=== PATIENT | female | born 1930 | race Caucasian/White ===

== ENCOUNTER 2017-08-18 12:16 | Observation (INO) ==
[2017-08-18 13:12] LABS: Basophils % 0.3 %; Eosinophils # 0.2 K/mcL (0.0-0.6); Eosinophils % 1.6 %; Hematocrit 41.8 % (35.3-44.9); Hemoglobin 13.7 g/dL (11.5-15.4); Immature Granulocytes % 0.6 % (0-4); Lymphocytes # 1.8 K/mcL (0.6-4.6); Lymphocytes % 18.7 %; Mean Corpuscular HGB Conc 32.8 g/dL (31.6-35.5); Mean Corpuscular Hemoglobin 29.1 pg (28.0-33.3); Mean Corpuscular Volume 88.7 fL (83.0-100.0); Monocytes # 0.8 K/mcL (0.0-1.3); Monocytes % 7.9 %; Neutrophils # 6.7 K/mcL (1.6-8.9); Platelet Count 194 K/mcL (140-400); Red Blood Count 4.71 M/mcL (3.82-4.97); Red Cell Distribution Width 13.6 % (11.5-14.5); Segmented Neutrophils % 70.9 %
[2017-08-18 13:15] LABS: INR 2.6; Prothrombin Time 28.2 Seconds (9.4-12.1)
[2017-08-18 13:18] LABS: Activated Partial Thrombo Time 41.3 Seconds (26.0-36.0)
--- NOTE | 2017-08-18 13:23 | Emergency Department Note ---
Disposition Clinical Impression: NSTEMI (non-ST elevated myocardial infarction) Disposition: Admitted As Inpatient Condition: Undetermined Referrals: Elba Tierney CNP [Primary Care Provider] - Forms: ED Satisfaction Letter Time of Disposition: 13:56 Chest Pain HPI - General Chief Complaint: ED Chest Pain Stated Complaint: Weakness, DORINA Time Seen by Provider: 08/18/17 12:50 Source: patient Mode of arrival: ambulatory Limitations: no limitations Vital Signs Reviewed: Yes Nursing Notes Reviewed: Yes - History of Present Illness HPI Narrative: 87-year-old female with history of NE, arrives [facility] emergency department complaining of epigastric pain radiating into her chest. The patient states this feels similar to her previous NE. The patient has associated dyspnea as well. She denies any other complaints at this time other than feeling generalized weakness. The patient appears uncomfortable in the room and states that she just feels ill. The patient denies any active chest pain at this time. The patient does have a history of blood clot. Patient is currently taking warfarin for this. The patient denies any other complaints at this time other than some right lower extremity pain without unilateral swelling. The patient does have bilateral lower extremity swelling but no acute changes associated with it. Pt complaint: chest pain Onset (ago): day(s) (1) Duration: intermittent, now resolved Pain Location: substernal, epigastric Severity scale (1-10): 0 Quality: sharp Pain Radiation: none Improves with: nothing Worsens with: nothing Associated symptoms: Reports: dyspnea Treatments prior to arrival chest pain: none - Related Data On Oral Contraceptives: No Home Medications Medication Instructions Recorded Confirmed Carvedilol [Coreg] 6.25 mg PO BIDWM 12/17/15 12/17/15 Losartan Potassium [Cozaar] 50 mg PO DAILY 12/17/15 12/17/15 Oxybutynin [Ditropan] 5 mg PO DAILY 12/17/15 12/17/15 Polyethylene Glycol 3350 [MiraLAX] 8.5 gm PO DAILY 12/17/15 12/17/15 Simvastatin [Zocor] 40 mg PO HS 12/17/15 12/17/15 Warfarin Sodium [Coumadin] 6 mg PO 2XW 12/17/15 12/17/15 Warfarin [Coumadin] 4 mg PO 4XW 12/17/15 12/17/15 hydroCHLOROthiazide 25 mg PO DAILY 12/17/15 12/17/15 [Hydrochlorothiazide] traMADol [Ultram] 50 mg PO QID PRN 12/17/15 12/17/15 Previous Rx's Medication Instructions Recorded Nitrofurantoin (BID) [Macrobid] 100 mg PO BID 7 Days capsule 03/26/16 Phenazopyridine HCl [Pyridium] 200 mg PO TIDAC 2 Days tab 03/26/16 LORazepam [Ativan] 1 mg PO BID PRN #6 tablet 04/12/16 Allergies Allergy/AdvReac Type Severity Reaction Status Date / Time prednisone AdvReac Flushing Verified 08/18/17 12:39 All systems ED: reviewed and negative except as stated. Constitutional: Reports: weakness. Denies: fever, chills ENT ED: Denies: congestion Cardiovascular: Reports: chest pain, edema. Denies: dyspnea on exertion Respiratory: Reports: dyspnea. Denies: cough, wheezes, hemoptysis Gastrointestinal: Reports: nausea. Denies: abdominal pain, vomiting, diarrhea Musculoskeletal: Denies: back pain, neck pain, arthralgia, myalgia Integumentary: Denies: rash Neurological: Reports: weakness Chest Pain PMH - Past Medical History Medical history: Reports: coronary artery disease, hypertension Surgical history: Reports: angioplasty/stent, hip replacement, hysterectomy, orthopedic, other, pacemaker/AICD Psychiatric history: Reports: no psych history [employer] history: Reports: no [employer] history - Social History Smoking Status: Never smoker Alcohol use: Reports: none Drug use: Reports: none Physical Exam - General Limitations: no limitations General appearance: alert, in no apparent distress - Head Head exam: atraumatic, normocephalic, normal inspection - Eye Eye exam: Present: normal appearance, PERRL, EOMI - ENT ENT exam: normal exam, normal oropharynx, mucous membranes moist - Neck Neck exam: Present: normal inspection, full ROM, trachea midline - Chest Chest inspection: Present: normal inspection, symmetric chest wall rise - Respiratory Respiratory exam: Present: normal lung sounds bilaterally - Cardiovascular Cardiovascular exam: Present: regular rate, normal rhythm, normal heart sounds - Abdominal Exam Abdominal exam: Present: soft, Non-Tender. Absent: tenderness, distention, guarding, rebound, rigidity - Extremities Exam Extremities exam: Present: full ROM, tenderness (RLE), pedal edema (1+) - Neurological Exam Neurological exam: Present: alert, oriented X3 Course Vital Signs Temperature 97.4 F L 08/18/17 12:36 Pulse Rate 65 08/18/17 12:36 Respiratory Rate 16 08/18/17 12:36 Blood Pressure 128/76 08/18/17 12:36 O2 Sat by Pulse Oximetry 98 08/18/17 12:36 Temperature 97.4 F L 08/18/17 12:36 Pulse Rate 62 08/18/17 13:24 Respiratory Rate 20 08/18/17 13:24 Blood Pressure 129/79 08/18/17 13:24 O2 Sat by Pulse Oximetry 96 08/18/17 13:24 Oxygen Delivery Oxygen Delivery Room Air Chest Pain - MDM Narrative Medical decision making narrative: Patient's workup here in the emergency department consistent with an elevated troponin associated with possible STEMI. Given the patient's symptoms and similarity of this epigastric pain radiating across to her previous NE, we will admit the patient to the hospitalist service. [facility] emergency department. She is chest pain-free at this time. Patient accepted by Dr. Rae. - Lab Data Lab results reviewed: Yes I reviewed the patient's lab results. Result diagrams: 08/18/17 13:04 08/18/17 13:04 Lab Results 08/18/17 08/18/17 08/18/17 Range/Units 13:04 13:04 13:04 WBC 9.5 (4.3-11.1) K/mcL RBC 4.71 (3.82-4.97) M/mcL Hgb 13.7 (11.5-15.4) g/dL Hct 41.8 (35.3-44.9) % MCV 88.7 (83.0-100.0) fL MCH 29.1 (28.0-33.3) pg MCHC 32.8 (31.6-35.5) g/dL RDW 13.6 (11.5-14.5) % Plt Count 194 (140-400) K/mcL MPV 10.0 (9.4-12.4) fL Immature Gran % 0.6 (0-4) % Seg Neutrophils % 70.9 % Lymphocytes % 18.7 % Monocytes % 7.9 % Eosinophils % 1.6 % Basophils % 0.3 % Neutrophils # 6.7 (1.6-8.9) K/mcL Lymphocytes # 1.8 (0.6-4.6) K/mcL Monocytes # 0.8 (0.0-1.3) K/mcL Eosinophils # 0.2 (0.0-0.6) K/mcL Basophils # 0.0 (0.0-0.2) K/mcL PT 28.2 H (9.4-12.1) Seconds INR 2.6 APTT 41.3 H (26.0-36.0) Seconds D-Dimer (0-500) ng/mLFEU Sodium 135 L (136-145) mEq/L Potassium 4.1 (3.5-4.5) mEq/L Chloride 99 (98-109) mEq/L Carbon Dioxide 23 (19-29) mEq/L BUN 17 (7-20) mg/dL Creatinine 1.11 (0.57-1.11) mg/dL Est GFR ( Amer) 56 L (> 60) Est GFR (Non-Af Amer) 46 L (> 60) BUN/Creatinine Ratio 15 (6-26) Glucose 134 H (70-99) mg/dL Calculated Osmolality 284 (280-300) Calcium 9.9 (8.6-10.8) mg/dL Troponin I (0-0.03) ng/mL Urine Color (Yellow) Urine Clarity (Clear) Urine pH (5.0-8.0) pH Units Ur Specific [place] (1.010-1.025) Urine Protein (Neg-Trace) mg/dL Urine Glucose (UA) (Normal) mg/dL Urine Ketones (Negative) mg/dL Urine Blood (Negative) Urine Nitrite (Negative) Urine Bilirubin (Negative) Urine Urobilinogen (Normal) mg/dL Ur Leukocyte Esterase (Negative) Urine Microscopic RBC (0-3) per hpf Urine Microscopic WBC (0-3) per hpf Ur Squamous Epith Cells (None-Few) per lpf Urine Bacteria (None-Few) per hpf Hyaline Casts (None-Few) per lpf Ur Culture Indicated? (NO) 08/18/17 08/18/17 08/18/17 Range/Units 13:04 13:04 13:40 WBC (4.3-11.1) K/mcL RBC (3.82-4.97) M/mcL Hgb (11.5-15.4) g/dL Hct (35.3-44.9) % MCV (83.0-100.0) fL MCH (28.0-33.3) pg MCHC (31.6-35.5) g/dL RDW (11.5-14.5) % Plt Count (140-400) K/mcL MPV (9.4-12.4) fL Immature Gran % (0-4) % Seg Neutrophils % % Lymphocytes % % Monocytes % % Eosinophils % % Basophils % % Neutrophils # (1.6-8.9) K/mcL Lymphocytes # (0.6-4.6) K/mcL Monocytes # (0.0-1.3) K/mcL Eosinophils # (0.0-0.6) K/mcL Basophils # (0.0-0.2) K/mcL PT (9.4-12.1) Seconds INR APTT (26.0-36.0) Seconds D-Dimer 337 (0-500) ng/mLFEU Sodium (136-145) mEq/L Potassium (3.5-4.5) mEq/L Chloride (98-109) mEq/L Carbon Dioxide (19-29) mEq/L BUN (7-20) mg/dL Creatinine (0.57-1.11) mg/dL Est GFR ( Amer) (> 60) Est GFR (Non-Af Amer) (> 60) BUN/Creatinine Ratio (6-26) Glucose (70-99) mg/dL Calculated Osmolality (280-300) Calcium (8.6-10.8) mg/dL Troponin I 0.05 H* (0-0.03) ng/mL Urine Color Yellow (Yellow) Urine Clarity Clear (Clear) Urine pH 7.0 (5.0-8.0) pH Units Ur Specific [place] 1.012 (1.010-1.025) Urine Protein Negative (Neg-Trace) mg/dL Urine Glucose (UA) Normal (Normal) mg/dL Urine Ketones Negative (Negative) mg/dL Urine Blood Negative (Negative) Urine Nitrite Negative (Negative) Urine Bilirubin Negative (Negative) Urine Urobilinogen Normal (Normal) mg/dL Ur Leukocyte Esterase Trace H (Negative) Urine Microscopic RBC 0-3 (0-3) per hpf Urine Microscopic WBC 0-3 (0-3) per hpf Ur Squamous Epith Cells Many H (None-Few) per lpf Urine Bacteria None Seen (None-Few) per hpf Hyaline Casts None Seen (None-Few) per lpf Ur Culture Indicated? YES A (NO) - Radiology Data Radiology results reviewed: Yes I reviewed the patient's radiology results. - EKG Data EKG attestation: Yes I reviewed and interpreted this EKG. EKG results narrative: Heart rate 66 bpm. QTc 478 ms. Electronic ventricular pacemaker. No elevation or depression noted. No [facility] criteria met. No acute changes noted.
[2017-08-18 13:24] LABS: Calcium 9.9 mg/dL (8.6-10.8); Potassium 4.1 mEq/L (3.5-4.5)
[2017-08-18] MEDS ORDERED: Aspirin 325 MG TABLET PO ONE (13:40)
[2017-08-18 13:52] LABS: Bilirubin,Urine Negative (Negative); Blood,Urine Negative (Negative); Clarity,Urine Clear (Clear); Color,Urine Yellow (Yellow); Glucose,Urine (UA) Normal (Normal); Ketones,Urine Negative (Negative); Leukocyte Esterase,Urine Trace (Negative); Nitrite,Urine Negative (Negative); Protein,Urine Negative (Neg-Trace); Specific Gravity,Urine 1.012 (1.010-1.025); Urobilinogen,Urine Normal (Normal)
[2017-08-18 13:55] LABS: Bacteria,Urine None Seen per hpf (None-Few); Hyaline Casts,Urine None Seen per lpf (None-Few); RBC,Urine 0-3 per hpf (0-3); Squamous Epithelial Cell,Urine Many per lpf (None-Few); WBC,Urine 0-3 per hpf (0-3)
--- NOTE | 2017-08-18 15:49 | Emergency Department Note ---
START Narrative - START START: I examined this patient and my medical decision-making was reviewed with the Resident Physician. I agree with the documented findings, disposition and treatment plan as described except to the extent set forth below. CP in pt with underlying CAD S/P MT. Pain free at the time of my evaluation. Vitals normal, troponin minimally elevated, hospitalist agreed with holding off on anticoagulation, aspirin given.
--- NOTE | 2017-08-18 18:25 | Internal Med History&Physical ---
Date of Encounter: 08/18/17 Time of Encounter: 17:00 Assessment and Plan (1) NSTEMI (non-ST elevated myocardial infarction) Current visit: Yes Status: Acute -Patient with chest pain found to have elevated cardiac biomarkers in the ER. -Monitor on telemetry and trend cardiac biomarkers. -Cardiology consult and appreciate recommendations. (2) CAD (coronary artery disease) Current visit: Yes Status: Acute -ACS rule out as above; continue home medications. Qualifiers: Coronary Disease-Associated Artery/Lesion type: [place] artery Qualified Code(s): I25.10 - Atherosclerotic heart disease of [place] coronary artery without angina pectoris (3) HLD (hyperlipidemia) Current visit: Yes Status: Acute -Continue statin. Qualifiers: Hyperlipidemia type: unspecified Qualified Code(s): E78.5 - Hyperlipidemia , unspecified Internal Medicine - H&P: HPI Chief complaint: chest pain Admitted From: Home History of present illness: Patient is an 87-year-old female with past medical history significant for coronary Job disease, atrial fibrillation and hyperlipidemia who presents to the ER on 08/18/17 with chest pain. Patient reports a 1 day history of substernal chest pain that she describes as sharp/pressure lasting for minutes which was provoked by exertion (sweeping the floor) and relieved with nitroglycerin. Patient denies any radiation or associated symptoms. Patient does report that this felt like her last heart attack. In the ER patient was found to have elevated cardiac biomarkers. She will be admitted to medical surgical floor for ACS rule out. Past Med Surg Social Fam HX - Past Medical History Medical history: coronary artery disease, hypertension Psychiatric history: no psych history - Past Surgical History Surgical History: angioplasty/stent, hip replacement, hysterectomy, orthopedic, other, pacemaker/AICD - Social History Smoking Status: Never smoker Smokeless Tobacco Status: No Alcohol use: none Drug use: none - Family History Father Living Status: Hx Family Cardiac Disorders: Yes Internal Medicine - H&P: Meds Simvastatin [Zocor] 40 mg PO HS 12/17/15 [History] Warfarin Sodium [Coumadin] 6 mg PO SA 12/17/15 [History] Warfarin [Coumadin] 4 mg PO SUMOTUWETHFR 12/17/15 [History] hydroCHLOROthiazide [Hydrochlorothiazide] 25 mg PO DAILY 12/17/15 [History] Aspirin Enteric Coated [Aspirin EC] 81 mg PO DAILY 08/18/17 [History] Carvedilol [Carvedilol] 12.5 mg PO BID 08/18/17 [History] Losartan [Cozaar] 25 mg PO DAILY 08/18/17 [History] Oxybutynin Chloride [Ditropan Xl] 5 mg PO DAILY 08/18/17 [History] 3 Allergy/AdvReac Type Severity Reaction Status Date / Time prednisone AdvReac Flushing Verified 08/18/17 12:39 All Systems PM: A 10-system review of systems was performed and is negative for pertinent findings except as documented above in the HPI. - Constitutional Vitals: Temp Pulse Resp BP Pulse Ox 97.4 F L 63 16 134/81 97 08/18/17 12:36 08/18/17 15:02 08/18/17 15:02 08/18/17 15:02 08/18/17 15:02 General appearance: Present: A&O X 3, no acute distress - ENT ENT exam: Present: mucous membranes moist - Cardiovascular Cardiovascular exam: Present: RRR, +S1, +S2. Absent: diastolic murmur, gallop, rubs, systolic murmur - GI/Abdominal GI/Abdominal exam: Present: normal bowel sounds, soft, no peritoneal signs. Absent: distended, tenderness - Extremities Exam Extremities exam: Absent: pedal edema - Neurological Exam Neurological exam: Present: oriented X3 - Psychiatric Psychiatric exam: Present: normal mood - Skin Skin exam: Present: normal color Internal Med - H&P Results - Labs CBC & Chem 7: 08/18/17 13:04 08/18/17 13:04
[2017-08-18] MEDS ORDERED: Naloxone 0.4 MG/ML INJ IVP PRN (18:30)
[2017-08-18] MEDS: *HR* Warfarin 4 MG TABLET PO SCH (19:11)
[2017-08-19] MEDS: traMADol 50 MG TABLET PO PRN ×2 (00:07→09:27)
[2017-08-19 01:25] LABS: Basophils % 0.4 %; Eosinophils # 0.2 K/mcL (0.0-0.6); Eosinophils % 1.9 %; Hematocrit 40.3 % (35.3-44.9); Immature Granulocytes % 0.4 % (0-4); Lymphocytes # 2.3 K/mcL (0.6-4.6); Mean Corpuscular HGB Conc 32.3 g/dL (31.6-35.5); Mean Corpuscular Hemoglobin 28.8 pg (28.0-33.3); Mean Corpuscular Volume 89.4 fL (83.0-100.0); Mean Platelet Volume 10.5 fL (9.4-12.4); Monocytes # 0.8 K/mcL (0.0-1.3); Monocytes % 9.8 %; Platelet Count 181 K/mcL (140-400); Red Blood Count 4.51 M/mcL (3.82-4.97); Red Cell Distribution Width 13.7 % (11.5-14.5); Segmented Neutrophils % 60.5 %
[2017-08-19 01:37] LABS: Calcium 9.7 mg/dL (8.6-10.8)
[2017-08-19] MEDS: hydroCHLOROthiazide 25 MG TABLET PO SCH (09:19)
[2017-08-19] MEDS: Aspirin Enteric Coated 81 MG Tablet PO SCH (09:19)
--- NOTE | 2017-08-19 11:55 | Cardiology Consult Note ---
Date of Encounter: 08/19/17 Time of Encounter: 11:50 Assessment and Plan (1) Atrial fibrillation Current Visit: Yes Status: Chronic rate controlled on coumadin, continue above meds Qualifiers: Atrial fibrillation type: chronic Qualified Code(s): I48.2 - Chronic atrial fibrillation (2) NSTEMI (non-ST elevated myocardial infarction) Current Visit: Yes Status: Acute Exertional CP with mild elevation of troponins and slight worsening LE edema in last few weeks. Possible ischemic, discussed chemical stress test and pt agrees to proceed. Liely continue medical therapy unless high risk stress abnormalities Discussion w patient/family: The assessment and plan as outlined above was discussed with the patient and/or family members who expressed understanding and agreement. All questions were answered. Thank you for involving us in the care of your patient. Please call with any questions. History of Present Illness Consult date: 08/19/17 Consult reason: Chest pain Chief complaint: pain in my chest History of present illness: Ms. Virgen is a 87 year old female with h/o ICM s/p MD/PTCA with [facility] in 1995, PAF on coumadin presents with CP. Last EF at 30-35% s/p ICD placement. She presents with epigastric cp while sweeping at home, pain lasted few minutes and resolved with rest. No radiation or associated symptoms. mild troponin elevation and EKG unremarkable. Peak trop .09 and currently resting comfortably with no CP, SOB, ortopnea or PND. Past Med Surg Social Fam HX - Past Medical History Medical history: coronary artery disease, hypertension Psychiatric history: no psych history - Past Surgical History Surgical History: angioplasty/stent, hip replacement, hysterectomy, orthopedic, other, pacemaker/AICD - Social History Smoking Status: Never smoker Smokeless Tobacco Status: No Alcohol use: none Drug use: none - Family History Father Living Status: Hx Family Cardiac Disorders: Yes Medications and Allergies Simvastatin [Zocor] 40 mg PO HS 12/17/15 [History] Warfarin Sodium [Coumadin] 6 mg PO SA 12/17/15 [History] Warfarin [Coumadin] 4 mg PO SUMOTUWETHFR 12/17/15 [History] hydroCHLOROthiazide [Hydrochlorothiazide] 25 mg PO DAILY 12/17/15 [History] Aspirin Enteric Coated [Aspirin EC] 81 mg PO DAILY 08/18/17 [History] Carvedilol [Carvedilol] 12.5 mg PO BID 08/18/17 [History] Losartan [Cozaar] 25 mg PO DAILY 08/18/17 [History] Oxybutynin Chloride [Ditropan Xl] 5 mg PO DAILY 08/18/17 [History] 3 Allergy/AdvReac Type Severity Reaction Status Date / Time prednisone AdvReac Flushing Verified 08/18/17 12:39 All Systems Review: A 10-system review of systems was performed and is negative for pertinent findings except as documented above in the HPI. Physical Examination Vital Signs, Last 4 Hours Temp Pulse Resp BP Pulse Ox 08/19/17 11:06 97.6 F 60 15 99/62 95 General: Conversant, No Apparent Distress HEENT: Atraumatic, Normocephaly, Mucus Membranes Moist Neck: No JVD, Normal carotid pulses Cardiac: Reg Rate and Rhythm, Normal S1 and S2, No Murmur Lungs: Normal Breath Sounds, No Wheeze, Rales, Rhonchi Neuro: Alert and responsive, No focal deficits noted Abdomen: Soft, Non-Tender Skin: No rashes noted on visualized skin Musculoskeletal: No Chest Wall Tenderness Extremities: No Clubbing, No Cyanosis, No Edema (Bilateral LE edema), Normal Pulses Results 08/19/17 00:44 08/19/17 00:44 Lab Results 08/18/17 08/19/17 08/19/17 19:19 00:44 00:44 WBC 8.3 Hgb 13.0 Hct 40.3 Plt Count 181 Sodium Potassium Chloride Carbon Dioxide BUN Creatinine Glucose Calcium Troponin I 0.06 H* 0.08 H* 08/19/17 08/19/17 00:44 07:05 WBC Hgb Hct Plt Count Sodium 134 L Potassium 4.0 Chloride 100 Carbon Dioxide 23 BUN 17 Creatinine 1.13 H Glucose 113 H Calcium 9.7 Troponin I 0.07 H* Consult Discharge Plan - Plan Referrals: Elba Tierney CNP [Primary Care Provider] - 08/26/17 2:15 pm
--- NOTE | 2017-08-19 15:58 | Internal Med Progress Note ---
Date of Encounter: 08/19/17 Time of Encounter: 09:25 - Assessment and plan (1) NSTEMI (non-ST elevated myocardial infarction) Current Visit: Yes Status: Acute Assessment and plan: Patient reports exertional chest pain and increased peripheral edema over the last few weeks. She reported 1 day history of substernal chest pain that she described as sharp, lasting for several minutes at a time. Onset while she was cleaning her home and was relieved with nitroglycerin. She denies radiation of the pain, shortness of breath, nausea, diaphoresis. She states that the pain overall was a 6-7/10. She reports history of [place] 3 in the past and that this feels the same. Troponins mildly elevated, last one this morning was 0.07. Pt denies chest pain. EKG shows a paced rhythm rate of 66. Patient is been evaluated by cardiology and will have stress test tomorrow. She will be nothing by mouth after midnight. Stress test in the morning Continue telemetry Treat any chest pain with nitroglycerin and morphine Continue to monitor labs (2) HLD (hyperlipidemia) Current Visit: Yes Status: Chronic Assessment and plan: Chronic. Continue home medications. Qualifiers: Hyperlipidemia type: unspecified Qualified Code(s): E78.5 - Hyperlipidemia , unspecified (3) CAD (coronary artery disease) Current Visit: Yes Status: Acute Assessment and plan: Plan as above. Continue aspirin, beta davion, Zocor, Coumadin. Qualifiers: Coronary Disease-Associated Artery/Lesion type: [place] artery Qualified Code(s): I25.10 - Atherosclerotic heart disease of [place] coronary artery without angina pectoris (4) Atrial fibrillation Current Visit: Yes Status: Chronic Assessment and plan: Rate controlled. Pt is on Coumadin and BB. Continue home doses. Continue tele. Qualifiers: Atrial fibrillation type: chronic Qualified Code(s): I48.2 - Chronic atrial fibrillation (5) DVT prophylaxis Current Visit: Yes Status: Acute Assessment and plan: Pt on Coumadin for a-fib. Continue home dosing. - Time Spent With Patient less than 15 minutes - Subjective Interval history: Patient was seen and assessed at bedside at 9:25 AM. She is alert, oriented and pleasant. She currently denies chest pain during exam today. She denies shortness of breath or nausea, she denies fever or chills. Denies headache or blurred vision. She reports that she said 3 MIs in the past and this feels the same. - Constitutional Vitals: Temp Pulse Resp BP Pulse Ox 98.5 F 62 20 92/51 95 08/19/17 14:28 08/19/17 14:28 08/19/17 14:28 08/19/17 14:28 08/19/17 14:28 General appearance: Present: cooperative, A&O X 3, pleasant, no acute distress, answers questions appropriately - Head Head exam: Present: atraumatic, normal inspection, normocephalic - Eye Eye exam: Present: normal appearance, conjuntiva pink, sclera anicteric - Neck Neck exam general surgery: Present: normal inspection, supple, trachea midline. Absent: lymphadenopathy, tenderness - Respiratory Respiratory exam: Present: decreased breath sounds, CTAB. Absent: accessory muscle use, chest wall tenderness, rales, respiratory distress, rhonchi, wheezes - Cardiovascular Cardiovascular exam: Present: RRR, +S1, +S2. Absent: diastolic murmur, gallop, rubs, systolic murmur - GI/Abdominal GI/Abdominal exam: Present: normal bowel sounds, soft. Absent: distended, hepatomegaly, tenderness - Extremities Exam Extremities exam: Present: warm, radial pulses palpable and symmetrical. Absent : calf tenderness, cyanotic, pedal edema - Neurological Exam Neurological exam: Present: alert, oriented X3, no focal deficits. Absent: facial droop, speech deficit - Skin Skin exam: Present: dry, intact, normal color, warm. Absent: rash Internal Medicine: Result - Labs CBC & Chem 7: 08/19/17 00:44 08/19/17 00:44 Labs: Short CBC 08/19/17 Range/Units 00:44 WBC 8.3 (4.3-11.1) K/mcL Hgb 13.0 (11.5-15.4) g/dL Hct 40.3 (35.3-44.9) % Plt Count 181 (140-400) K/mcL Neutrophils # 5.0 (1.6-8.9) K/mcL BMP 08/19/17 00:44 Sodium 134 L Potassium 4.0 Chloride 100 Carbon Dioxide 23 BUN 17 Creatinine 1.13 H Glucose 113 H Calcium 9.7 Cardiac Enzymes 08/18/17 08/19/17 08/19/17 Range/Units 19:19 00:44 07:05 Troponin I 0.06 H* 0.08 H* 0.07 H* (0-0.03) ng/mL - ABG Interpretation ABG results: PT/INR, D-dimer PT 28.2 Seconds (9.4-12.1) H 08/18/17 13:04 D-Dimer 337 ng/mLFEU (0-500) 08/18/17 13:04 Consult Discharge Plan - Plan Referrals: Elba Tierney CNP [Primary Care Provider] - 08/26/17 2:15 pm
[2017-08-19] MEDS: *HR* Warfarin 4 MG TABLET PO SCH (17:07)
[2017-08-20 05:16] LABS: Basophils % 0.5 %; Eosinophils # 0.2 K/mcL (0.0-0.6); Eosinophils % 2.4 %; Hematocrit 39.6 % (35.3-44.9); Hemoglobin 12.7 g/dL (11.5-15.4); Immature Granulocytes % 0.5 % (0-4); Mean Corpuscular HGB Conc 32.1 g/dL (31.6-35.5); Mean Corpuscular Hemoglobin 28.9 pg (28.0-33.3); Mean Platelet Volume 10.2 fL (9.4-12.4); Monocytes # 0.8 K/mcL (0.0-1.3); Monocytes % 10.4 %; Neutrophils # 4.7 K/mcL (1.6-8.9); Platelet Count 158 K/mcL (140-400); Red Cell Distribution Width 13.9 % (11.5-14.5); Segmented Neutrophils % 60.2 %
[2017-08-20 05:22] LABS: BUN/Creatinine Ratio 17 (6-26); Blood Urea Nitrogen 18 mg/dL (7-20); Calcium 9.2 mg/dL (8.6-10.8); Carbon Dioxide 22 mEq/L (19-29); Chloride 100 mEq/L (98-109); Glucose 106 mg/dL (70-99); Osmolality,Calculated 278 (280-300); Potassium 4.2 mEq/L (3.5-4.5); Sodium 133 mEq/L (136-145); eGFR For African Americans > 60 (> 60); eGFR For Non-African Americans 50 (> 60)
[2017-08-20] MEDS ORDERED: Regadenoson 0.4 MG/5 ML SYRINGE IVP ONE (06:26)
--- NOTE | 2017-08-20 08:57 | Cardiology Progress Note ---
Date of Encounter: 08/21/17 Time of Encounter: 08:55 Assessment and Plan (1) Elevated troponin I measurement Status: Acute Per Cardiology: NSTEMI vs demand ischemia. Trops flat and adynamic. Peak 0.08. CP free. ST pending. Will place CR consult. (2) CAD (coronary artery disease) Status: Chronic Per Cardiology: Apparent hx of CAD-- s/p CO/PTCA with [facility] in 1995. On BB, ARB, statin, asa. Qualifiers: Coronary Disease-Associated Artery/Lesion type: [place] artery [place] vs. transplanted heart: [place] heart Associated angina: with stable angina Qualified Code(s): I25.118 - Atherosclerotic heart disease of [place] coronary artery with other forms of angina pectoris (3) Cardiomyopathy Status: Chronic Per Cardiology: Known Ef 30-35%. Has ICD. BNP only 345. CXR stable. Euvolemic on exam. On ARB and BB. Qualifiers: Cardiomyopathy type: unspecified Qualified Code(s): I42.9 - Cardiomyopathy , unspecified (4) Atrial fibrillation Status: Chronic Per Cardiology: History of persistent atrial fibrillation. On BB-- Remains rate controlled. On Coumadin for anticoagulation. H&H stable. Qualifiers: Atrial fibrillation type: chronic Qualified Code(s): I48.2 - Chronic atrial fibrillation Discussion w patient/family: The assessment and plan as outlined above was discussed with the patient and/or family members who expressed understanding and agreement. All questions were answered. Thank you for involving us in the care of your patient. Please call with any questions. Subjective Principal diagnosis: Afib, Elevated trop Interval history: Patient seen today during stress test. She denies any concerns over night. Denies any chest pain, short of breath, palpitations. Objective Selected Entries 08/20/17 02:42 08/20/17 02:51 Temperature 97.5 F L Pulse Rate 60 Respiratory Rate 16 Blood Pressure 109/61 O2 Sat by Pulse Oximetry 95 Oxygen Delivery Method Room Air General: Conversant, No Apparent Distress HEENT: Atraumatic, Normocephaly, Mucus Membranes Moist Neck: No JVD, Normal carotid pulses Cardiac: Normal S1 and S2, No Murmur, Other (Irregularly irregular) Lungs: Normal Breath Sounds, No Wheeze, Rales, Rhonchi Neuro: Alert and responsive, No focal deficits noted Abdomen: Soft, Non-Tender Skin: No rashes noted on visualized skin Musculoskeletal: No Chest Wall Tenderness Extremities: No Clubbing, No Cyanosis, Normal Pulses, Other (+2 nonpitting bilateral lower extremity edema) Results 08/20/17 04:54 08/20/17 04:54 Lab Results Laboratory Tests 08/18/17 08/18/17 08/18/17 13:04 13:04 19:19 INR 2.6 Creatinine Est GFR (Non-Af Amer) Troponin I 0.05 H* 0.06 H* 08/19/17 08/19/17 08/20/17 00:44 07:05 04:54 INR Creatinine 1.04 Est GFR (Non-Af Amer) 50 L Troponin I 0.08 H* 0.07 H* ITS Impressions Chest X-Ray 08/18/17 12:40 IMPRESSION: No acute cardiopulmonary disease. D/ / Jaren Salmeron MD / Jaren Salmeron MD Interpreting Provider: Jaren Salmeron MD Active Medications Aspirin (Aspirin Ec) 81 mg PO DAILY FELIX Stop: 02/18/18 09:01 Last Admin: 08/19/17 09:19 Dose: 81 mg Carvedilol (Coreg) 12.5 mg PO BIDWM [facility] Stop: 02/17/18 21:01 Last Admin: 08/19/17 17:07 Dose: 12.5 mg Hydrochlorothiazide (Hydrochlorothiazide) 25 mg PO DAILY FELIX PRN Reason: Protocol Stop: 02/18/18 09:01 Last Admin: 08/19/17 09:19 Dose: 25 mg Losartan Potassium (Cozaar) 25 mg PO DAILY FELIX PRN Reason: Protocol Stop: 02/18/18 09:01 Last Admin: 08/19/17 09:19 Dose: 25 mg Naloxone HCl (Narcan) 0.4 mg IVP Q2MIN PRN PRN Reason: Opioid Reversal Stop: 02/17/18 18:31 Oxybutynin Chloride (Ditropan) 5 mg PO BID FELIX Stop: 02/18/18 09:01 Last Admin: 08/19/17 21:15 Dose: 5 mg Simvastatin (Zocor) 40 mg PO HS FELIX PRN Reason: Protocol Stop: 02/17/18 21:01 Last Admin: 08/19/17 21:15 Dose: 40 mg Tramadol HCl (Ultram) 50 mg PO Q6HR PRN PRN Reason: pain Stop: 02/17/18 23:50 Last Admin: 08/19/17 09:27 Dose: 50 mg Warfarin Sodium (Coumadin) 4 mg PO SuMoTuWeThFr@1800 [facility] Stop: 02/17/18 18:46 Last Admin: 08/19/17 17:07 Dose: 4 mg Warfarin Sodium (Coumadin) 6 mg PO Sa@1800 [facility] Stop: 02/21/18 18:01 - Imaging and Cardiology Stress Test: pending Echo: report reviewed - EKG Interpretation EKG results cardiology: other (Average heart rate 62, ventricular pacing, remains A. fib) Consult Discharge Plan - Plan Instructions: Myocardial Infarction (GEN), Chest Pain (GEN) Additional Instructions: Please follow-up with your primary care provider in the next 7-10 days for recheck. Please follow-up with cardiology as scheduled. Return to your normal home medications. Return to normal diet and activity as tolerated. Return to the emergency department as needed for any other problems or concerns , or if symptoms return or worsen. Referrals: Elba Tierney CNP [Primary Care Provider] - 08/26/17 2:15 pm
[2017-08-20] MEDS: hydroCHLOROthiazide 25 MG TABLET PO SCH (11:14)
[2017-08-20] MEDS: Aspirin Enteric Coated 81 MG Tablet PO SCH (11:15)
--- NOTE | 2017-08-20 12:08 | Event Note ---
Date of Encounter: 08/20/17 Time of Encounter: 12:00 - Cardiology Event Note Stress test results noted: Impression: Pharmacologic stress ECG is non-diagnostic for ischemia due to baseline paced rhythm. Gated EF = 24%. Severely dilated left ventricle. Large sized, severe intensity, fixed perfusion defects involving the mid anterior, anteroseptal, inferior, all apical segments, and apex suggestive of prior infarct(s). Perfusion imaging was negative for ischemia. Findings similar to prior report from 02/2015. Cartilage and will sign off, reconsult as needed, follow-up scheduled. All questions answered.
[2017-08-20 15:00] VITALS: BP 114/73
[2017-08-20] MEDS: *HR* Warfarin 4 MG TABLET PO SCH (18:12)
--- NOTE | 2017-08-20 18:14 | Electrocardiograph Report ---
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
--- NOTE | 2017-08-20 18:21 | Discharge Summary ---
Date of Encounter: 08/20/17 Time of Encounter: 09:45 - Discharge Diagnosis (1) NSTEMI (non-ST elevated myocardial infarction) Priority: Primary Status: Acute Comments: Patient reports exertional chest pain and increased peripheral edema over the last few weeks. She reported 1 day history of substernal chest pain that she described as sharp, lasting for several minutes at a time. Onset while she was cleaning her home and was relieved with nitroglycerin. She denies radiation of the pain, shortness of breath, nausea, diaphoresis. She states that the pain overall was a 6-7/10. She reports history of SC 3 in the past and that this feels the same. Troponins mildly elevated, last one this morning was 0.07. Pt denies chest pain. EKG shows a paced rhythm rate of 66. Patient was evaluated by cardiology. Stress test was ordered. It is negative for ischemia or infarct. Gated EF is 24%, severely dilated left ventricle, perfusion defects suggestive of prior infarct. Findings are similar to report from February 2015. Cardiology has signed off and will follow-up as scheduled. Patient denies chest pain at this time. She is stable and requesting to be discharged. Chest X-Ray 08/18/17 12:40 IMPRESSION: No acute cardiopulmonary disease. D/ / Jaren Salmeron MD / Jaren Salmeron MD Interpreting Provider: Jaren Salmeron MD (2) HLD (hyperlipidemia) Priority: Secondary Status: Chronic Comments: Chronic. Continue home medications. Qualifiers: Hyperlipidemia type: unspecified Qualified Code(s): E78.5 - Hyperlipidemia , unspecified (3) CAD (coronary artery disease) Priority: Secondary Status: Chronic Comments: Continue aspirin, beta davion, Zocor, Coumadin. Follow with cardiology. Patient denies chest pain. Qualifiers: Coronary Disease-Associated Artery/Lesion type: [place] artery [place] vs. transplanted heart: [place] heart Associated angina: with stable angina Qualified Code(s): I25.118 - Atherosclerotic heart disease of [place] coronary artery with other forms of angina pectoris (4) Atrial fibrillation Priority: Secondary Status: Chronic Comments: A. fib is rate controlled with a beta davion. Patient is on Coumadin continue home dose. Qualifiers: Atrial fibrillation type: chronic Qualified Code(s): I48.2 - Chronic atrial fibrillation (5) DVT prophylaxis Priority: Secondary Status: Acute Comments: Patient is on Coumadin. - Discharge Medications Home Medications: Simvastatin [Zocor] 40 mg PO HS 12/17/15 [History] Warfarin Sodium [Coumadin] 6 mg PO SA 12/17/15 [History] Warfarin [Coumadin] 4 mg PO SUMOTUWETHFR 12/17/15 [History] hydroCHLOROthiazide [Hydrochlorothiazide] 25 mg PO DAILY 12/17/15 [History] Aspirin Enteric Coated [Aspirin EC] 81 mg PO DAILY 08/18/17 [History] Carvedilol 12.5 mg PO BID 08/18/17 [History] Losartan [Cozaar] 25 mg PO DAILY 08/18/17 [History] Oxybutynin Chloride [Ditropan Xl] 5 mg PO DAILY 08/18/17 [History] Allergies/Adverse Reactions: 3 Allergy/AdvReac Type Severity Reaction Status Date / Time prednisone AdvReac [place] Verified 08/18/17 12:39 Procedures/tests Complete & Pending: Procedures Performed prior 72 hours Category Date Time Status NM dea perf SPECT multi [NM] Routine Exams 08/20/17 08:00 Taken SP pharm nuclear stress Routine Y 08/20/17 08:00 Completed Date of admission: 08/18/17 14:15 Primary care physician: Elba Tierney, Consults: 08/18/17 16:55 Consult to Pastoral Services [CONS] Routine Comment: 08/18/17 18:32 Consult to Cardiology [CONS] Routine Comment: Consulting Provider: Cardiology Barbara Reason for Consult: acs r/o Call Completed: No Discharging clinician: Jeniffer Don Anticipated date of discharge: 08/20/17 - Patient Status Disposition: Home, Self-Care Condition: Good Functional capacity at discharge: independent ambulation Overall status at discharge: patient is back to baseline - Discharge Instructions Follow Up With: Elba Tierney CNP [Primary Care Provider] - 08/26/17 2:15 pm Additional Instructions: Please follow-up with your primary care provider in the next 7-10 days for recheck. Please follow-up with cardiology as scheduled. Return to your normal home medications. Return to normal diet and activity as tolerated. Return to the emergency department as needed for any other problems or concerns , or if symptoms return or worsen. - Diet and Activity Activity: increase activity as tolerated Diet: advance to your usual diet Hospital course: Ms. Virgen is a 87 year old female with past medical history of epilepsy may, coronary artery disease, atrial fibrillation, pacemaker, cardiomyopathy. She presented to emergency department with complaint of chest pain. She was evaluated by cardiology, stress test was ordered. It was negative for ischemia or infarct. Her gated EF is 24%. She will continue her home medications and follow with cardiology the office. No medication changes made. She is chest pain-free on discharge. - Time Spent with Patient Total time spent providing and/or coordinating discharge services: Less than 30 minutes - Constitutional Vitals: Temp Pulse Resp BP Pulse Ox 97.8 F 59 15 114/73 95 08/20/17 14:59 08/20/17 14:59 08/20/17 14:59 08/20/17 14:59 08/20/17 14:59 General appearance: Present: cooperative, A&O X 3, pleasant, no acute distress, answers questions appropriately - Head Head exam: Present: atraumatic, normal inspection, normocephalic - Eye Eye exam: Present: normal appearance, conjuntiva pink, sclera anicteric - Neck Neck exam general surgery: Present: supple, trachea midline. Absent: lymphadenopathy - Respiratory Respiratory exam: Present: CTAB. Absent: accessory muscle use, rales, rhonchi, wheezes - Cardiovascular Cardiovascular exam: Present: irregular rhythm, +S1, +S2. Absent: diastolic murmur, gallop, rubs, systolic murmur - GI/Abdominal GI/Abdominal exam: Present: normal bowel sounds, soft. Absent: distended, hepatomegaly, tenderness - Extremities Exam Extremities exam: Present: normal capillary refill, warm, radial pulses palpable and symmetrical. Absent: calf tenderness, cyanotic, pedal edema - Neurological Exam Neurological exam: Present: alert, oriented X3, no focal deficits, pronater drift. Absent: facial droop, speech deficit - Skin Skin exam: Present: dry, intact, normal color, warm. Absent: rash
[2017-08-22] MEDS ORDERED: *HR* Warfarin 3 MG TABLET PO SCH (18:00)
== END 2017-08-20 19:30 | disposition home or self-care (01) ==
LOC: 3BNU 12:16 → EMEROO 12:16 → 3BNU 15:43
PROVIDERS: ADMIT Hospitalist; ATTEND Registered Nurse

== ENCOUNTER 2017-12-06 15:14 | Inpatient (IN) ==
[2017-12-06 16:42] LABS: Basophils % 0.3 %; Eosinophils # 0.1 K/mcL (0.0-0.6); Eosinophils % 1.7 %; Hematocrit 40.2 % (35.3-44.9); Hemoglobin 13.1 g/dL (11.5-15.4); Immature Granulocytes % 0.5 % (0-4); Lymphocytes # 1.4 K/mcL (0.6-4.6); Lymphocytes % 18.1 %; Mean Corpuscular HGB Conc 32.6 g/dL (31.6-35.5); Mean Corpuscular Hemoglobin 28.5 pg (28.0-33.3); Mean Corpuscular Volume 87.4 fL (83.0-100.0); Mean Platelet Volume 10.2 fL (9.4-12.4); Monocytes % 12.7 %; Neutrophils # 5.1 K/mcL (1.6-8.9); Platelet Count 160 K/mcL (140-400); Red Cell Distribution Width 14.2 % (11.5-14.5); Segmented Neutrophils % 66.7 %
--- NOTE | 2017-12-06 16:59 | Emergency Department Note ---
Disposition Clinical Impression: Swelling of both lower extremities, AICD (automatic cardioverter/defibrillator ) present, CKD (chronic kidney disease) stage 3, GFR 30-59 ml/min Congestive heart failure Qualifiers: Heart failure type: unspecified Heart failure chronicity: chronic Qualified Code(s): I50.9 - Heart failure, unspecified Disposition: Admitted As Inpatient Condition: Fair Referrals: Elba Tierney [employer] [Primary Care Provider] - Forms: ED Satisfaction Letter Time of Disposition: 18:27 Extremity Problem HPI - General Chief complaint: ED Extremity Problem,Nontraumatic Stated complaint: feet / leg swelling, unable to void Time Seen by Provider: 12/06/17 15:33 Source: patient Limitations: no limitations Vital Signs Reviewed: Yes - History of Present Illness HPI Narrative: Mouna Virgen is an 87 year old female with history of CHF w/ AICD and CKD stage III who presents with lower extremity swelling x 2 weeks. Normally, it goes down at night, but she noticed that it has been significantly worse the last day and has not decreased at all. She states that her legs are constantly sore now. She was started on lasix prescribed by nephrology 3 weeks ago, taking 20 mg daily. She was also recently treated with ciprofloxacin prescribed by urgent care for bronchitis/sinusitis on 12/01. Since around that time, the patient has noted decreased urinary output despite taking lasix. She denies orthopnea, paroxysmal nocturnal dyspnea, and cough. Denies shortness of breath, fever, chills, and chest pain. Pain Scale: 0 - Related Data Home Medications Medication Instructions Recorded Confirmed Simvastatin [Zocor] 40 mg PO HS 12/17/15 08/18/17 Warfarin Sodium [Coumadin] 6 mg PO SA 12/17/15 08/18/17 Warfarin [Coumadin] 4 mg PO SUMOTUWETHFR 12/17/15 08/18/17 hydroCHLOROthiazide 25 mg PO DAILY 12/17/15 08/18/17 [Hydrochlorothiazide] Aspirin Enteric Coated [Aspirin EC] 81 mg PO DAILY 08/18/17 08/18/17 Carvedilol 12.5 mg PO BID 08/18/17 08/18/17 Losartan [Cozaar] 25 mg PO DAILY 08/18/17 08/18/17 Oxybutynin Chloride [Ditropan Xl] 5 mg PO DAILY 08/18/17 08/18/17 Previous Rx's Medication Instructions Recorded Ciprofloxacin [Cipro] 500 mg PO BID #20 tablet 12/01/17 Allergies Allergy/AdvReac Type Severity Reaction Status Date / Time prednisone AdvReac [place] Verified 08/18/17 12:39 Constitutional: Denies: fever, chills Cardiovascular: Denies: chest pain, dyspnea on exertion, orthopnea, paroxysmal nocturnal dyspnea Respiratory: Denies: cough, dyspnea Past Medical History - Past Medical History Medical history: Reports: non-contributory, other Surgical history: Reports: angioplasty/stent, hip replacement, hysterectomy, orthopedic, other, pacemaker/AICD Psychiatric history: Reports: no psych history [employer] history: Reports: no [employer] history - Social History Smoking Status: Never smoker Smokeless Tobacco Status: No Alcohol use: Reports: none Drug use: Reports: none Physical Exam - General Limitations: no limitations General appearance: alert, in no apparent distress - Head Head exam: atraumatic, normocephalic - Respiratory Respiratory exam: Present: normal lung sounds bilaterally. Absent: respiratory distress, accessory muscle use - Cardiovascular Cardiovascular exam: Present: regular rate, normal rhythm, normal heart sounds, +S1, +S2 - Abdominal Exam Abdominal exam: Present: soft, Non-Tender - Extremities Exam Extremities exam: Present: other. Absent: calf tenderness - Expanded Lower Extremity Exam Lower leg exam: Present: swelling (3+ pitting edema to the knee) - Neurological Exam Neurological exam: Present: alert, oriented X3 - Psychiatric Psychiatric exam: Present: normal affect, normal mood - Skin Skin exam: Present: warm, dry Course Course Narrative: Patient presents with bilateral lower extremity swelling, with history of CHF and CKD. Lab work showed Na of 130 and GFR of 50. UA was without abnormality. When patient was ambulating to the restroom, she became profoundly dyspneic. Additional lasix, which might help help the leg swelling, could worsen her hyponatremia, so we feel that it is a better plan to admit her for further work up, including evaluation of her heart. Dr. Bautista signed the case out with admitting hospitalist. Vital Signs Temperature 98 F 12/06/17 15:24 Pulse Rate 65 12/06/17 15:24 Respiratory Rate 18 12/06/17 15:24 Blood Pressure 123/74 12/06/17 15:24 O2 Sat by Pulse Oximetry 96 03/25/18 15:24 Temperature 98 F 12/06/17 15:24 Pulse Rate 75 12/06/17 17:27 Respiratory Rate 26 12/06/17 17:27 Blood Pressure 123/76 12/06/17 17:27 O2 Sat by Pulse Oximetry 98 12/06/17 17:27 Oxygen Delivery Oxygen Delivery Nasal Cannula Extremity Problem, Nontraumati - Medical Records Medical records reviewed: Yes I reviewed the patient's medical records. - Lab Data Lab results reviewed: Yes I reviewed the patient's lab results. Result diagrams: 12/06/17 16:13 12/06/17 16:13 Lab Results 12/06/17 12/06/17 12/06/17 Range/Units 16:13 16:13 17:26 WBC 7.6 (4.3-11.1) K/mcL RBC 4.60 (3.82-4.97) M/mcL Hgb 13.1 (11.5-15.4) g/dL Hct 40.2 (35.3-44.9) % MCV 87.4 (83.0-100.0) fL MCH 28.5 (28.0-33.3) pg MCHC 32.6 (31.6-35.5) g/dL RDW 14.2 (11.5-14.5) % Plt Count 160 (140-400) K/mcL MPV 10.2 (9.4-12.4) fL Immature Gran % 0.5 (0-4) % Seg Neutrophils % 66.7 % Lymphocytes % 18.1 % Monocytes % 12.7 % Eosinophils % 1.7 % Basophils % 0.3 % Neutrophils # 5.1 (1.6-8.9) K/mcL Lymphocytes # 1.4 (0.6-4.6) K/mcL Monocytes # 1.0 (0.0-1.3) K/mcL Eosinophils # 0.1 (0.0-0.6) K/mcL Basophils # 0.0 (0.0-0.2) K/mcL Sodium 126 L (136-145) mEq/L Potassium 3.8 (3.5-5.1) mEq/L Chloride 93 L (98-107) mEq/L Carbon Dioxide 25 (23-29) mEq/L BUN 14 (8-23) mg/dL Creatinine 1.03 (0.60-1.20) mg/dL Est GFR ( Amer) > 60 (> 60) Est GFR (Non-Af Amer) 50 L (> 60) BUN/Creatinine Ratio 14 (6-26) Glucose 116 H (70-105) mg/dL Calculated Osmolality 263 L (280-300) Calcium 9.4 (8.6-10.3) mg/dL Troponin I 0.03 (< 0.04) ng/mL Urine Color Yellow (Yellow) Urine Clarity Clear (Clear) Urine pH 6.5 (5.0-8.0) pH Units Ur Specific [place] 1.014 (1.010-1.025) Urine Protein Negative (Neg-Trace) mg/dL Urine Glucose (UA) Normal (Normal) mg/dL Urine Ketones Negative (Negative) mg/dL Urine Blood Negative (Negative) Urine Nitrite Negative (Negative) Urine Bilirubin Negative (Negative) Urine Urobilinogen Normal (Normal) mg/dL Ur Leukocyte Esterase Negative (Negative) Ur Culture Indicated? NO (NO) - Radiology Data Radiology results reviewed: Yes I reviewed the patient's radiology results. - EKG Data EKG attestation: Yes I reviewed and interpreted this EKG. Rate: normal Rhythm: PVC's
[2017-12-06 17:03] LABS: BUN/Creatinine Ratio 14 (6-26); Blood Urea Nitrogen 14 mg/dL (8-23); Calcium 9.4 mg/dL (8.6-10.3); Carbon Dioxide 25 mEq/L (23-29); Chloride 93 mEq/L (98-107); Glucose 116 mg/dL (70-105); Osmolality,Calculated 263 (280-300); Potassium 3.8 mEq/L (3.5-5.1); Sodium 126 mEq/L (136-145); Troponin I 0.03 ng/mL (< 0.04); eGFR For African Americans > 60 (> 60); eGFR For Non-African Americans 50 (> 60)
--- NOTE | 2017-12-06 17:27 | Emergency Department Note ---
Disposition Clinical Impression: Swelling of both lower extremities, AICD (automatic cardioverter/defibrillator ) present, CKD (chronic kidney disease) stage 3, GFR 30-59 ml/min Congestive heart failure Qualifiers: Heart failure type: unspecified Heart failure chronicity: chronic Qualified Code(s): I50.9 - Heart failure, unspecified Disposition: Admitted As Inpatient Condition: Fair Time of Disposition: 12:35 General Adult HPI - General Chief complaint: ED Extremity Problem,Nontraumatic Stated complaint: feet / leg swelling, unable to void Time Seen by Provider: 12/06/17 15:33 Source: patient Mode of arrival: ambulatory Limitations: no limitations Nursing Notes Reviewed: Yes Vital Signs Reviewed: Yes - History of Present Illness Pain Scale: 0 - Related Data Home Medications Medication Instructions Recorded Confirmed Simvastatin [Zocor] 40 mg PO HS 12/17/15 12/06/17 Warfarin [Coumadin] 4 mg PO DAILY 12/17/15 12/06/17 hydroCHLOROthiazide 25 mg PO DAILY 12/17/15 12/06/17 [Hydrochlorothiazide] Carvedilol 12.5 mg PO BID 08/18/17 12/06/17 Losartan [Cozaar] 25 mg PO DAILY 08/18/17 12/06/17 Oxybutynin Chloride [Ditropan Xl] 5 mg PO DAILY 08/18/17 12/06/17 Previous Rx's Medication Instructions Recorded Ciprofloxacin [Cipro] 500 mg PO BID #20 tablet 12/01/17 Allergies Allergy/AdvReac Type Severity Reaction Status Date / Time prednisone AdvReac Flushing Verified 08/18/17 12:39 Past Medical History - Past Medical History Medical history: Reports: non-contributory, other Surgical history: Reports: angioplasty/stent, hip replacement, hysterectomy, orthopedic, other, pacemaker/AICD Psychiatric history: Reports: no psych history GUT SNATCHER history: Reports: no GUT SNATCHER history - Social History Smoking Status: Never smoker Smokeless Tobacco Status: No Alcohol use: Reports: none Drug use: Reports: none Physical Exam - General Limitations: no limitations General appearance: alert, in no apparent distress Course Vital Signs Temperature 98 F 12/06/17 15:24 Pulse Rate 65 12/06/17 15:24 Respiratory Rate 18 12/06/17 15:24 Blood Pressure 123/74 12/06/17 15:24 O2 Sat by Pulse Oximetry 96 12/06/17 15:24 Temperature 97.6 F 12/06/17 23:01 Pulse Rate 57 12/06/17 23:01 Respiratory Rate 18 12/06/17 23:01 Blood Pressure 119/75 12/06/17 23:01 O2 Sat by Pulse Oximetry 96 12/06/17 23:01 Oxygen Delivery Oxygen Delivery Room Air Medical Decision Making - Lab Data Result diagrams: 12/06/17 16:13 12/06/17 16:13 Lab Results 12/06/17 12/06/17 12/06/17 Range/Units 16:13 16:13 17:26 WBC 7.6 (4.3-11.1) K/mcL RBC 4.60 (3.82-4.97) M/mcL Hgb 13.1 (11.5-15.4) g/dL Hct 40.2 (35.3-44.9) % MCV 87.4 (83.0-100.0) fL MCH 28.5 (28.0-33.3) pg MCHC 32.6 (31.6-35.5) g/dL RDW 14.2 (11.5-14.5) % Plt Count 160 (140-400) K/mcL MPV 10.2 (9.4-12.4) fL Immature Gran % 0.5 (0-4) % Seg Neutrophils % 66.7 % Lymphocytes % 18.1 % Monocytes % 12.7 % Eosinophils % 1.7 % Basophils % 0.3 % Neutrophils # 5.1 (1.6-8.9) K/mcL Lymphocytes # 1.4 (0.6-4.6) K/mcL Monocytes # 1.0 (0.0-1.3) K/mcL Eosinophils # 0.1 (0.0-0.6) K/mcL Basophils # 0.0 (0.0-0.2) K/mcL Sodium 126 L (136-145) mEq/L Potassium 3.8 (3.5-5.1) mEq/L Chloride 93 L (98-107) mEq/L Carbon Dioxide 25 (23-29) mEq/L BUN 14 (8-23) mg/dL Creatinine 1.03 (0.60-1.20) mg/dL Est GFR ( Amer) > 60 (> 60) Est GFR (Non-Af Amer) 50 L (> 60) BUN/Creatinine Ratio 14 (6-26) Glucose 116 H (70-105) mg/dL Calculated Osmolality 263 L (280-300) Calcium 9.4 (8.6-10.3) mg/dL Troponin I 0.03 (< 0.04) ng/mL Urine Color Yellow (Yellow) Urine Clarity Clear (Clear) Urine pH 6.5 (5.0-8.0) pH Units Ur Specific [place] 1.014 (1.010-1.025) Urine Protein Negative (Neg-Trace) mg/dL Urine Glucose (UA) Normal (Normal) mg/dL Urine Ketones Negative (Negative) mg/dL Urine Blood Negative (Negative) Urine Nitrite Negative (Negative) Urine Bilirubin Negative (Negative) Urine Urobilinogen Normal (Normal) mg/dL Ur Leukocyte Esterase Negative (Negative) Ur Culture Indicated? NO (NO) Urine Creatinine mg/dL Protein/Creatinin Ratio Urine Total Protein (1-14) mg/dL //18 Range/Units 17:30 WBC (4.3-11.1) K/mcL RBC (3.82-4.97) M/mcL Hgb (11.5-15.4) g/dL Hct (35.3-44.9) % MCV (83.0-100.0) fL MCH (28.0-33.3) pg MCHC (31.6-35.5) g/dL RDW (11.5-14.5) % Plt Count (140-400) K/mcL MPV (9.4-12.4) fL Immature Gran % (0-4) % Seg Neutrophils % % Lymphocytes % % Monocytes % % Eosinophils % % Basophils % % Neutrophils # (1.6-8.9) K/mcL Lymphocytes # (0.6-4.6) K/mcL Monocytes # (0.0-1.3) K/mcL Eosinophils # (0.0-0.6) K/mcL Basophils # (0.0-0.2) K/mcL Sodium (136-145) mEq/L Potassium (3.5-5.1) mEq/L Chloride (98-107) mEq/L Carbon Dioxide (23-29) mEq/L BUN (8-23) mg/dL Creatinine (0.60-1.20) mg/dL Est GFR ( Amer) (> 60) Est GFR (Non-Af Amer) (> 60) BUN/Creatinine Ratio (6-26) Glucose (70-105) mg/dL Calculated Osmolality (280-300) Calcium (8.6-10.3) mg/dL Troponin I (< 0.04) ng/mL Urine Color (Yellow) Urine Clarity (Clear) Urine pH (5.0-8.0) pH Units Ur Specific [place] (1.010-1.025) Urine Protein (Neg-Trace) mg/dL Urine Glucose (UA) (Normal) mg/dL Urine Ketones (Negative) mg/dL Urine Blood (Negative) Urine Nitrite (Negative) Urine Bilirubin (Negative) Urine Urobilinogen (Normal) mg/dL Ur Leukocyte Esterase (Negative) Ur Culture Indicated? (NO) Urine Creatinine 23 mg/dL Protein/Creatinin Ratio TNP Urine Total Protein < 4 (1-14) mg/dL Attestation Statement - Attestation Attestation: I, Cuauhtemoc Bautista, examined this patient and my medical decision-making was reviewed with the NURSERY TECHNICIAN/PA/Advanced Practice Nurse/Resident Physician. I agree with the documented findings, disposition and treatment plan as described except to the extent set forth below. 87-year-old female presents emergency Department with concerns of swelling of the bilateral lower extremities. Patient states she has a history of chronic kidney disease and noticed that the legs have been having increased pitting edema over the past week. Patient states she started Lasix 20 mg per day to try to solve the problem however they have not had satisfactory improvement. Patient denies history of large amounts of salt use or increased fluid intake. Patient states she had a history of chest pain 2-3 weeks ago but not within the past 3-4 days. On physical exam the patient has a +1 pitting edema in the bilateral lower extremities without tenderness to palpation of the calf bilaterally. Pulses are equal in the bilateral lower extremity. She is not dyspneic with exertion and does not have orthopnea. Chest x-ray shows a possible infiltrate however she is afebrile, not short of breath, not tachycardic and she is satting well on evaluation in the emergency department. Patient will be given strict return precautions encounter follow-up with primary care provider for continuation of care. We will increase her Lasix to 40 mg per day over the next 3-4 days.
[2017-12-06 17:38] LABS: Bilirubin,Urine Negative (Negative); Blood,Urine Negative (Negative); Clarity,Urine Clear (Clear); Color,Urine Yellow (Yellow); Glucose,Urine (UA) Normal (Normal); Ketones,Urine Negative (Negative); Leukocyte Esterase,Urine Negative (Negative); Nitrite,Urine Negative (Negative); PH,Urine 6.5 pH Units (5.0-8.0); Protein,Urine Negative (Neg-Trace); Specific Gravity,Urine 1.014 (1.010-1.025); Urobilinogen,Urine Normal (Normal)
[2017-12-06] MEDS ORDERED: Naloxone 0.4 MG/ML INJ IVP PRN (20:52)
--- NOTE | 2017-12-06 20:56 | Internal Med History&Physical ---
Date of Encounter: 12/06/17 Time of Encounter: 20:55 Assessment and Plan (1) Swelling of both lower extremities Current visit: Yes Status: Acute Likely secondary to CKD and possible mild right CHF exacerbation Known systolic dysfunction Trial IV Lasix daily Local compression bandage or STOCKINGS check TFT check protein/Cr (2) CKD (chronic kidney disease) stage 3, GFR 30-59 ml/min Current visit: Yes Status: Acute (3) CAD (coronary artery disease) Current visit: No Status: Chronic Qualifiers: Coronary Disease-Associated Artery/Lesion type: [place] artery [place] vs. transplanted heart: [place] heart Associated angina: with stable angina Qualified Code(s): I25.118 - Atherosclerotic heart disease of [place] coronary artery with other forms of angina pectoris (4) Cardiomyopathy Current visit: No Status: Chronic Qualifiers: Cardiomyopathy type: unspecified Qualified Code(s): I42.9 - Cardiomyopathy , unspecified (5) Hyponatremia Current visit: Yes Status: Acute likely related to CHF and lasix watch closely (6) Bronchitis Current visit: Yes Status: Acute complete course of cipro prescribed on at urgent care for bronchitis (7) Afib Current visit: Yes Status: Acute reported hx of AFib on coumadin trend INR continue follow closely given on cipro above Qualifiers: Atrial fibrillation type: persistent Qualified Code(s): I48.1 - Persistent atrial fibrillation Internal Medicine - H&P: HPI Chief complaint: LE edema History of present illness: Ms. Virgen is a 87 year old female with history of C daily, atrial fibrillation on Coumadin, and currently completing a course of Cipro for bronchitis/sinusitis who presents with acute on subacute worsening of lower extremity edema. She reports worsening 3 weeks history of lower extremity swelling on the legs that has been intermittent on and off. Swelling has been worsening in the last 2 days leading to hospital admission. She is under the care of Dr. Graves off nephrology and Dr. Miller of cardiology. Known Ef 30-35%. Has ICD. Has CAD-- s/p SD/PTCA with [facility] in [address] Graves has slowly started her on 20 mg Lasix daily at home 2 weeks ago for the same indication of swelling. She visited urgent care on Thursday with productive cough, clear sputum and was sent home on empiric ciprofloxacin for 10 days which she is completing. On review she denies overt shortness of breath, denies any abdominal swelling. Denies fevers and chills EKG personally reviewed with rate of 66, PVCs, irregular heart rate XR/XR chest 1V portable IMPRESSION: Patchy right lower lung airspace opacity may reflect pneumonia in the correct clinical setting. Past Med Surg Social Fam HX - Past Medical History Medical history: non-contributory, other Psychiatric history: no psych history - Past Surgical History Surgical History: angioplasty/stent, hip replacement, hysterectomy, orthopedic, other, pacemaker/AICD - Social History Smoking Status: Never smoker Smokeless Tobacco Status: No Alcohol use: none Drug use: none - Family History Father Living Status: Hx Family Cardiac Disorders: Yes Internal Medicine - H&P: Meds Simvastatin [Zocor] 40 mg PO HS 12/17/15 [History] Warfarin Sodium [Coumadin] 6 mg PO SA 12/17/15 [History] Warfarin [Coumadin] 4 mg PO SUMOTUWETHFR 12/17/15 [History] hydroCHLOROthiazide [Hydrochlorothiazide] 25 mg PO DAILY 12/17/15 [History] Aspirin Enteric Coated [Aspirin EC] 81 mg PO DAILY 08/18/17 [History] Carvedilol 12.5 mg PO BID 08/18/17 [History] Losartan [Cozaar] 25 mg PO DAILY 08/18/17 [History] Oxybutynin Chloride [Ditropan Xl] 5 mg PO DAILY 08/18/17 [History] Ciprofloxacin [Cipro] 500 mg PO BID #20 tablet 12/01/17 [Rx] 3 Allergy/AdvReac Type Severity Reaction Status Date / Time prednisone AdvReac Flushing Verified 08/18/17 12:39 All Systems PM: A 10-system review of systems was performed and is negative for pertinent findings except as documented above in the HPI. Review of systems: ROS 14 point review of systems reviewed as best as possible given presentation. Pertinent positive or negative as per HPI or otherwise reviewed as negative - Constitutional Vitals: Temp Pulse Resp BP Pulse Ox 97.8 F 66 18 135/75 96 12/06/17 20:16 12/06/17 20:16 12/06/17 20:16 12/06/17 20:16 12/06/17 20:16 Exam: General - AAO x 3 Psych - Appropriate affect/speech. No agitation Eyes - ANGEL. Eye lids intact. No scleral icterus Neuro - No gross peripheral or central neuro deficits on inspection Heart - Sinus. RRR. S1 and S2 present. No added HS/murmurs appreciated. No elevated JVD appreciated. Lung - Adequate air entry b/l, bibasal crackles. No wheezes appreciated GI - Soft, non-tender. No hepatosplenomegaly/ascites. BS+ - No CVA/suprapubic tenderness or palpable bladder distension Skin - Intact. No rash/petechiae/ecchymosis. +3 lower extremity edema Internal Med - H&P Results - Labs CBC & Chem 7: 12/06/17 16:13 12/06/17 16:13
[2017-12-06] MEDS ORDERED: Furosemide 40 MG/4 ML VIAL IVP SCH (21:00)
[2017-12-06] MEDS: Furosemide 40 MG/4 ML VIAL IVP SCH (21:28)
[2017-12-06] MEDS ORDERED: GuaiFENesin/Dextromethorphan TABLET PO PRN (22:28)
[2017-12-06 22:36] LABS: Creatinine,Urine 23 mg/dL
[2017-12-07 05:07] LABS: Basophils % 0.4 %; Eosinophils # 0.1 K/mcL (0.0-0.6); Hematocrit 37.6 % (35.3-44.9); Hemoglobin 12.3 g/dL (11.5-15.4); Immature Granulocytes % 0.7 % (0-4); Lymphocytes # 1.3 K/mcL (0.6-4.6); Lymphocytes % 18.4 %; Mean Corpuscular HGB Conc 32.7 g/dL (31.6-35.5); Mean Corpuscular Hemoglobin 28.3 pg (28.0-33.3); Mean Corpuscular Volume 86.4 fL (83.0-100.0); Monocytes % 13.4 %; Neutrophils # 4.6 K/mcL (1.6-8.9); Platelet Count 139 K/mcL (140-400); Red Blood Count 4.35 M/mcL (3.82-4.97); Segmented Neutrophils % 65.1 %
[2017-12-07 05:13] LABS: INR 2.9; Prothrombin Time 32.4 Seconds (9.4-12.1)
[2017-12-07 05:26] LABS: BUN/Creatinine Ratio 15 (6-26); Blood Urea Nitrogen 15 mg/dL (8-23); Calcium 8.9 mg/dL (8.6-10.3); Carbon Dioxide 27 mEq/L (23-29); Chloride 91 mEq/L (98-107); Glucose 112 mg/dL (70-105); Osmolality,Calculated 262 (280-300); Potassium 3.5 mEq/L (3.5-5.1); Sodium 125 mEq/L (136-145); eGFR For African Americans > 60 (> 60); eGFR For Non-African Americans 51 (> 60)
[2017-12-07 05:35] LABS: Thyroid Stimulating Hormone 3.285 mcIU/mL (0.340-5.600)
[2017-12-07] MEDS ORDERED: Furosemide 40 MG/4 ML VIAL IVP SCH (09:00)
[2017-12-07] MEDS: Aspirin Enteric Coated 81 MG Tablet PO SCH (09:08)
[2017-12-07] MEDS: hydroCHLOROthiazide 25 MG TABLET PO SCH (09:08)
[2017-12-07] MEDS: Ondansetron ODT 4 MG TAB.RAPDIS SL PRN (12:03)
--- NOTE | 2017-12-07 16:21 | Internal Med Progress Note ---
Date of Encounter: 12/07/17 Time of Encounter: 16:19 - Assessment and plan (1) Afib Current Visit: Yes Status: Acute Assessment and plan: Controlled rate on Coumadin with INR of 2.9 Pharmacy to dose Coumadin while admitted Qualifiers: Atrial fibrillation type: persistent Qualified Code(s): I48.1 - Persistent atrial fibrillation (2) Bronchitis Current Visit: Yes Status: Acute Assessment and plan: Patient has been on 6 day course of Cipro prescribed at urgent care for bronchitis. The patient states he was tearing up her stomach she is nauseated and cannot eat We will stop cipro today (3) CAD (coronary artery disease) Current Visit: No Status: Chronic Assessment and plan: Patient with history of atherosclerotic heart disease with angina Qualifiers: Coronary Disease-Associated Artery/Lesion type: [place] artery [place] vs. transplanted heart: [place] heart Associated angina: with stable angina Qualified Code(s): I25.118 - Atherosclerotic heart disease of [place] coronary artery with other forms of angina pectoris (4) CKD (chronic kidney disease) stage 3, GFR 30-59 ml/min Current Visit: Yes Status: Acute Assessment and plan: Patient creatinine below her normal baseline (5) Congestive heart failure Current Visit: Yes Status: Chronic Assessment and plan: Continue Lasix at increased dose Monitor electrolytes and kidney function Daily weight Intake and output BNP 444 which is higher than normal baseline Chest x-ray showed left-sided cardiac device with leads in unchanged position. Stable cardiomegaly Patchy right lower lobe [place] No evidence of pleural effusion or pneumothorax Patient had a stress echo on 08/21/17 with gated EF of 24%. Stress ECG was nondiagnostic for ischemia due to baseline paced rhythm. Serial severely dilated left ventricle. Large sized severe intensity fixed perfusion defects involving the mid anterior, gonsalo-septal inferior all apical segments and apex suggestive of prior infarcts. Qualifiers: Heart failure type: systolic Heart failure chronicity: chronic Qualified Code(s): I50.22 - Chronic systolic (congestive) heart failure (6) Hyponatremia Current Visit: Yes Status: Acute Assessment and plan: Patient has chronic hyponatremia but is below baseline of 136-132 Monitor labs while on Lasix (7) Swelling of both lower extremities Current Visit: Yes Status: Acute Assessment and plan: Patient has chronic swelling but his been much worse over the last few days. Likely secondary to chronic kidney disease and possible mild CHF exasperation. Known systolic dysfunction. IV Lasix as ordered Not tolerant of stockings Leg elevation (8) Nausea Current Visit: Yes Status: Acute Assessment and plan: Zofran as needed for nausea - Subjective Interval history: Patient is lying in bed in no acute distress. She states she came in because she had some much leg swelling that she feels it might be a little better this morning. She denies fever, chills, chest pain, shortness of breath she has a history of chronic kidney disease stage III followed by Dr. Dyer - Constitutional Vitals: Temp Pulse Resp BP Pulse Ox 97.6 F 60 14 99/61 94 12/07/17 16:15 12/07/17 16:15 12/07/17 16:15 12/07/17 16:15 12/07/17 16:15 General appearance: Present: cooperative, pleasant, answers questions appropriately - Head Head exam: Present: atraumatic, normocephalic - Eye Eye exam: Present: PERRL, conjuntiva pink, sclera anicteric Pupils: Present: PERRL - Neck Neck exam general surgery: Present: supple, trachea midline. Absent: lymphadenopathy - Respiratory Respiratory exam: Present: CTAB. Absent: accessory muscle use, rales, rhonchi, wheezes - Cardiovascular Cardiovascular exam: Present: RRR, +S1, +S2. Absent: diastolic murmur, gallop, rubs, systolic murmur - GI/Abdominal GI/Abdominal exam: Present: normal bowel sounds, soft, no peritoneal signs. Absent: distended, tenderness - Extremities Exam Extremities exam: Present: warm, radial pulses palpable and symmetrical. Absent : calf tenderness, cyanotic, pedal edema - Neurological Exam Neurological exam: Present: alert, CN II-XII intact, oriented X3, no focal deficits. Absent: pronater drift, facial droop, speech deficit - Skin Skin exam: Present: dry, intact, warm Additional comments: 3+ lower extremity edema knees down and some vascular skin changes Internal Medicine: Result - Labs CBC & Chem 7: 12/07/17 04:15 12/07/17 04:15 Labs: Short CBC 12/07/17 Range/Units 04:15 WBC 7.1 (4.3-11.1) K/mcL Hgb 12.3 (11.5-15.4) g/dL Hct 37.6 (35.3-44.9) % Plt Count 139 L (140-400) K/mcL Neutrophils # 4.6 (1.6-8.9) K/mcL BMP 12/07/17 04:15 Sodium 125 L Potassium 3.5 Chloride 91 L Carbon Dioxide 27 BUN 15 Creatinine 1.02 Glucose 112 H Calcium 8.9 - ABG Interpretation ABG results: PT/INR, D-dimer PT 32.4 Seconds (9.4-12.1) H 12/07/17 04:15 Consult Discharge Plan - Plan Referrals: Elba Tierney, FIRE CONTROL OFFICER [Primary Care Provider] - (Office will call you with an appointment time and date. )
[2017-12-07] MEDS ORDERED: Warfarin perPT PO PRN (18:00)
[2017-12-07] MEDS ORDERED: *HR* Warfarin 2 MG TABLET PO SCH (18:00)
[2017-12-07] MEDS ORDERED: *HR* Warfarin 4 MG TABLET PO SCH (18:00)
[2017-12-07] MEDS: Furosemide 40 MG/4 ML VIAL IVP SCH (20:10)
[2017-12-07] MEDS: Benzonatate 100 MG CAPSULE PO PRN (21:24)
[2017-12-08 04:56] LABS: Hematocrit 37.5 % (35.3-44.9); Hemoglobin 12.6 g/dL (11.5-15.4); Mean Corpuscular HGB Conc 33.6 g/dL (31.6-35.5); Mean Corpuscular Hemoglobin 28.5 pg (28.0-33.3); Mean Corpuscular Volume 84.8 fL (83.0-100.0); Platelet Count 156 K/mcL (140-400); Red Blood Count 4.42 M/mcL (3.82-4.97); Red Cell Distribution Width 13.9 % (11.5-14.5)
[2017-12-08 04:58] LABS: INR 2.3; Prothrombin Time 24.8 Seconds (9.4-12.1)
[2017-12-08 05:12] LABS: Calcium 9.2 mg/dL (8.6-10.3); Potassium 3.3 mEq/L (3.5-5.1)
[2017-12-08] MEDS: Aspirin Enteric Coated 81 MG Tablet PO SCH (07:56)
[2017-12-08] MEDS: hydroCHLOROthiazide 25 MG TABLET PO SCH (07:59)
[2017-12-08] MEDS ORDERED: Furosemide 40 MG TABLET PO SCH (09:00)
--- NOTE | 2017-12-08 11:15 | Internal Med Progress Note ---
Date of Encounter: 12/08/17 Time of Encounter: 11:14 - Assessment and plan (1) Afib Current Visit: Yes Status: Acute Assessment and plan: Physically rate controlled will continue with Coumadin current INR is 2.3 we will check daily pharmacy to dose Qualifiers: Atrial fibrillation type: persistent Qualified Code(s): I48.1 - Persistent atrial fibrillation (2) Bronchitis Current Visit: Yes Status: Acute Assessment and plan: Patient has been on 6 day course of Cipro prescribed at urgent care for bronchitis. The patient states he was tearing up her stomach she is nauseated and cannot eat Cipro stopped-12/07/17 (3) CKD (chronic kidney disease) stage 3, GFR 30-59 ml/min Current Visit: Yes Status: Acute Assessment and plan: 1 patient does have a history of CKG stage III she is seen by Dr. Graves. She has been receiving diuretics her creatinine elevated today 1.27. We will obtain urine sodium and urine osmolality 2 old diuretics for now, she is on hydrochlorothiazide as well as Lasix. 3 hold lisinopril 4 consult nephrology-Dr. Graves (4) Hyponatremia Current Visit: Yes Status: Acute Assessment and plan: It appears patient does have a history of hypernatremia appears her baseline is around 132-134. Upon admission she was 126 she is been receiving diuretics and today she is 124. We will hold diuretics for now There is no change in neuro state we will monitor neuro status Consult nephrology (5) Swelling of both lower extremities Current Visit: Yes Status: Acute Assessment and plan: 1 patient originally presented with lower shimmy swelling she was given hydrochlorothiazide as well as Lasix. We will hold this for now due to rising creatinine and hypernatremia. Encouraged patient to elevate lower extremities. Patient declines the use of OLIVA hose and Mak bandages (6) Congestive heart failure Current Visit: Yes Status: Chronic Assessment and plan: 1 echo obtained 11/18/2016 EF 30-35%-gated EF on 08/20/2017-24% severely dilated left ventricle [address] on fluid restriction monitor intake output daily weights Are holding diuretics now due to hypornatremia-elevated creatinine Nephrology has been consulted Qualifiers: Heart failure type: systolic Heart failure chronicity: chronic Qualified Code(s): I50.22 - Chronic systolic (congestive) heart failure (7) DVT prophylaxis Current Visit: No Status: Acute Assessment and plan: 1 coumadin - Time Spent With Patient less than 15 minutes - Subjective Interval history: This patient is here to me I did review records. Presently patient denies any chest pain or shortness of breath. She states that her legs swelling had improved however now she is sitting up in a chair and she feels that they have increased. Discussed of OLIVA hose or Mak bandages patient has declined. Encouraged patient to elevate legs. She does have a history of CK D stage III and she is followed by Dr. Graves we will consult due to hyponatremia and rising creatinine. - Constitutional Vitals: Temp Pulse Resp BP Pulse Ox 97.9 F 64 16 120/70 91 12/08/17 07:50 12/08/17 07:50 12/08/17 07:50 12/08/17 07:50 12/08/17 07:50 General appearance: Present: cooperative, pleasant, answers questions appropriately - Head Head exam: Present: atraumatic, normocephalic - Eye Eye exam: Present: PERRL, conjuntiva pink, sclera anicteric Pupils: Present: PERRL - Neck Neck exam general surgery: Present: supple, trachea midline. Absent: lymphadenopathy - Respiratory Respiratory exam: Present: CTAB. Absent: accessory muscle use, rales, rhonchi, wheezes - Cardiovascular Cardiovascular exam: Present: RRR, +S1, +S2. Absent: diastolic murmur, gallop, rubs, systolic murmur - GI/Abdominal GI/Abdominal exam: Present: normal bowel sounds, soft, no peritoneal signs. Absent: distended, tenderness - Extremities Exam Extremities exam: Present: warm, radial pulses palpable and symmetrical. Absent : calf tenderness, cyanotic, pedal edema - Neurological Exam Neurological exam: Present: CN II-XII intact, oriented X3, no focal deficits. Absent: pronater drift, facial droop, speech deficit Internal Medicine: Result - Labs CBC & Chem 7: 12/08/17 04:37 12/08/17 13:28 Labs: Short CBC 12/08/17 Range/Units 04:37 WBC 7.9 (4.3-11.1) K/mcL Hgb 12.6 (11.5-15.4) g/dL Hct 37.5 (35.3-44.9) % Plt Count 156 (140-400) K/mcL BMP 12/08/17 04:37 Sodium 124 L Potassium 3.3 L Chloride 87 L Carbon Dioxide 29 BUN 18 Creatinine 1.25 H Glucose 108 H Calcium 9.2 - ABG Interpretation ABG results: PT/INR, D-dimer PT 24.8 Seconds (9.4-12.1) H 12/08/17 04:37 Consult Discharge Plan - Plan Referrals: Elba Tierney CNP [Primary Care Provider] - 12/24/17 1:00 pm ( )
[2017-12-08 14:14] LABS: Calcium 9.6 mg/dL (8.6-10.3); Potassium 3.8 mEq/L (3.5-5.1)
[2017-12-08] MEDS ORDERED: *HR* Warfarin 4 MG TABLET PO ONE (18:00)
[2017-12-09 06:01] LABS: Basophils % 0.5 %; Eosinophils # 0.2 K/mcL (0.0-0.6); Eosinophils % 2.6 %; Hematocrit 40.3 % (35.3-44.9); Hemoglobin 13.6 g/dL (11.5-15.4); Immature Granulocytes % 0.6 % (0-4); Lymphocytes % 24.5 %; Mean Corpuscular HGB Conc 33.7 g/dL (31.6-35.5); Mean Corpuscular Hemoglobin 28.5 pg (28.0-33.3); Mean Corpuscular Volume 84.5 fL (83.0-100.0); Mean Platelet Volume 10.3 fL (9.4-12.4); Monocytes % 11.4 %; Platelet Count 181 K/mcL (140-400); Red Blood Count 4.77 M/mcL (3.82-4.97); Red Cell Distribution Width 13.8 % (11.5-14.5); Segmented Neutrophils % 60.4 %
[2017-12-09 06:04] LABS: INR 1.8; Prothrombin Time 19.3 Seconds (9.4-12.1)
[2017-12-09 06:23] LABS: Calcium 9.6 mg/dL (8.6-10.3); Potassium 3.7 mEq/L (3.5-5.1)
--- NOTE | 2017-12-09 08:42 | Nephrology Consult Note ---
Date of Encounter: 12/09/17 Time of Encounter: 08:40 Assessment and Plan (1) Hyponatremia Current Visit: Yes Status: Acute The patient has worsening hyponatremia related to congestive heart failure and hydrochlorothiazide. Her sodium today is starting to improve. The patient was instructed to remain off all thiazide-type diuretics indefinitely. She should continue to follow a diet restricted in fluid and sodium. Sodium intake should not exceed 1500 mg per day. Currently her Lasix is on hold. I would suspect within the next 1-2 days she is going to need to have the Lasix resumed. Her renal perspective her creatinine is higher than at the time of admission but still within her usual range with regards to her chronic kidney disease At this point I will continue to monitor both the patient's sodium and serum creatinine. Within a day or 2 as suggested she will likely need to have the Lasix resumed. She should stay off all thiazide agents. (2) CKD (chronic kidney disease) stage 3, GFR 30-59 ml/min Current Visit: Yes Status: Acute (3) Chronic systolic CHF (congestive heart failure) Current Visit: Yes Status: Acute (4) Chronic atrial fibrillation Current Visit: Yes Status: Acute History of Present Illness - History of Present Illness This is an 87-year-old female who is followed as an outpatient for stage III chronic kidney disease. Baseline creatinine ranges from 1.02-1.21. Patient was admitted with worsening lower extremity swelling. Patient was seen in the office on November 24. At that time she complained of increased swelling. She had been taking Lasix 20 mg 2-3 days per week. She was instructed to increase the Lasix to 20 mg daily. At that time her sodium was 134 and creatinine was 1.26. In taking hydrochlorothiazide prescribed by another provider that was not apparent the time of her last visit in the office. Here in the hospital her sodium has decreased from 126 down to 121. The hydrochlorothiazide was placed on hold. Sodium today is 123. Renal function showed a creatinine of 1.03 on admission. Today it is 1.25. Her swelling has improved. She does have a history of chronic systolic congestive heart failure. Her last left ventricular ejection fraction was 24%. Urinalysis does not show any significant proteinuria. Patient says today she is feeling fairly well. She denies any shortness of breath or orthopnea. Past Med Surg Social Fam HX - Past Medical History Medical history: non-contributory, other Psychiatric history: no psych history - Past Surgical History Surgical History: angioplasty/stent, hip replacement, hysterectomy, orthopedic, other, pacemaker/AICD - Social History Smoking Status: Never smoker Smokeless Tobacco Status: No Alcohol use: none Drug use: none - Family History Father Living Status: Hx Family Cardiac Disorders: Yes Medications and Allergies Simvastatin [Zocor] 40 mg PO HS 12/17/15 [History] Warfarin [Coumadin] 4 mg PO DAILY 12/17/15 [History] hydroCHLOROthiazide [Hydrochlorothiazide] 25 mg PO DAILY 12/17/15 [History] Carvedilol 12.5 mg PO BID 08/18/17 [History] Losartan [Cozaar] 25 mg PO DAILY 08/18/17 [History] Oxybutynin Chloride [Ditropan Xl] 5 mg PO DAILY 08/18/17 [History] 3 Allergy/AdvReac Type Severity Reaction Status Date / Time prednisone Allergy Rash/HOT/RE Verified 12/07/17 10:18 D Review of Systems Constitutional: as per HPI Nose, mouth and throat: no dizziness, no headache(s) Cardiovascular: dyspnea on exertion, edema, no chest pain, no palpitations Respiratory: dyspnea on exertion Gastrointestinal: no abdominal pain, no change in bowel habits Musculoskeletal: no muscle weakness, no numbness Integumentary: no hirsutism, no striae Neurological: as per HPI Psychiatric: no depression, no difficulty concentrating Endocrine: as per HPI Hematologic/Lymphatic: no easy bruising, no lymphadenopathy Exam - Vital Signs Vital signs: Initial Vital Signs Temp Pulse Resp BP Pulse Ox 98 F 65 18 123/74 96 12/06/17 15:24 12/06/17 15:24 12/06/17 15:24 12/06/17 15:24 12/06/17 15:24 Vital Signs - Last 8 Hours Temp Pulse Resp BP Pulse Ox 12/09/17 07:12 97.8 F 63 16 130/64 92 12/09/17 03:22 98.1 F 61 17 108/62 92 Intake and Output 12/08/17 12/09/17 12/09/17 23:59 07:59 15:59 Output Total 400 / 400 Balance -400 / -400 Output: Urine 400 / 400 Other: Weight 65.68 kg Patient Weight 12/09/17 23:59 Weight 65.68 kg - General Appearance Exam: The patient is alert and oriented. She is in no acute distress. Vital signs are stable. Lungs coarse breath sounds otherwise clear. Heart irregular rate and rhythm consistent with atrial fibrillation. Abdomen shows normal bowel sounds brews masses or megaly or tenderness. The patient has minimal lower extremity swelling. Results - Lab Results 12/09/17 04:57 12/09/17 04:57 Most recent lab results Calcium 9.6 mg/dL (8.6-10.3) 12/09/17 04:57 Urine Creatinine mg/dL 12/08/17 11:33 Urine Sodium 98.0 mEq/L 12/08/17 11:33 Urine Total Protein mg/dL (1-14) 12/08/17 11:33 Consult Discharge Plan - Plan Referrals: Elba Tierney CNP [Primary Care Provider] - 12/24/17 1:00 pm ( )
--- NOTE | 2017-12-09 09:25 | Internal Med Progress Note ---
Date of Encounter: 12/09/17 Time of Encounter: 09:24 - Assessment and plan (1) Afib Current Visit: Yes Status: Acute Assessment and plan: Physically rate controlled will continue with Coumadin current INR 1.8 we will check daily- pharmacy to dose Coumadin Qualifiers: Atrial fibrillation type: persistent Qualified Code(s): I48.1 - Persistent atrial fibrillation (2) Bronchitis Current Visit: Yes Status: Acute Assessment and plan: Patient has been on 6 day course of Cipro prescribed at urgent care for bronchitis. The patient states he was tearing up her stomach she is nauseated and cannot eat Cipro stopped-12/07/17 (3) CKD (chronic kidney disease) stage 3, GFR 30-59 ml/min Current Visit: Yes Status: Acute Assessment and plan: 1 patient does have a history of CKG stage III she is seen by Dr. Graves. She has been receiving diuretics her creatinine elevated today 1.27. We will obtain urine sodium and urine osmolality 2 Hold diuretics for now, she is on hydrochlorothiazide as well as Lasix.-We will resume Lasix tomorrow-discontinue hydrochlorothiazide since it is contributing hyponatremia 3 hold lisinopril-we will resume once patient's back to baseline 4 consult nephrology-Dr. Graves-appreciate recommendations (4) Hyponatremia Current Visit: Yes Status: Acute Assessment and plan: 1 slightly improved from yesterday-hyponatremia most likely related to hydrochlorothiazide and heart failure we will hold diuretic for today. Continue with low-sodium diet Continue with fluid restriction Monitor intake and output No neurological changes at this time continue with neuro checks Nephrology has been consulted-Dr. Graves-appreciate recommendations (5) Swelling of both lower extremities Current Visit: Yes Status: Acute Assessment and plan: 1 patient originally presented with lower extremity swelling she was given hydrochlorothiazide as well as Lasix. We will hold this for now due to rising creatinine and hypornatremia. Encouraged patient to elevate lower extremities. Patient declines the use of OLIVA hose and Mak bandages (6) Congestive heart failure Current Visit: Yes Status: Chronic Assessment and plan: 1 echo obtained 11/18/2016 EF 30-35%-gated EF on 08/20/2017-24% severely dilated left ventricle [address] on fluid restriction monitor intake output daily weights Are holding diuretics now due to hypornatremia-elevated creatinine-we will resume Lasix tomorrow Nephrology has been consulted Qualifiers: Heart failure type: systolic Heart failure chronicity: chronic Qualified Code(s): I50.22 - Chronic systolic (congestive) heart failure (7) DVT prophylaxis Current Visit: No Status: Acute Assessment and plan: 1 coumadin - Subjective Interval history: This patient is here to me I did review records. Presently patient denies any chest pain or shortness of breath. She states that her legs swelling had improved however now she is sitting up in a chair and she feels that they have increased. Discussed of OLIVA hose or Mak bandages patient has declined. Encouraged patient to elevate legs. She does have a history of CK D stage III and she is followed by Dr. Graves we will consult due to hyponatremia and rising creatinine. - Constitutional Vitals: Temp Pulse Resp BP Pulse Ox 97.8 F 63 16 130/64 92 12/09/17 07:12 12/09/17 07:12 12/09/17 07:12 12/09/17 07:12 12/09/17 07:12 General appearance: Present: cooperative, pleasant, answers questions appropriately - Head Head exam: Present: atraumatic, normocephalic - Eye Eye exam: Present: PERRL, conjuntiva pink, sclera anicteric Pupils: Present: PERRL - Neck Neck exam general surgery: Present: supple, trachea midline. Absent: lymphadenopathy - Respiratory Respiratory exam: Present: CTAB. Absent: accessory muscle use, rales, rhonchi, wheezes - Cardiovascular Cardiovascular exam: Present: RRR, +S1, +S2. Absent: diastolic murmur, gallop, rubs, systolic murmur - GI/Abdominal GI/Abdominal exam: Present: normal bowel sounds, soft, no peritoneal signs. Absent: distended, tenderness - Extremities Exam Extremities exam: Present: pedal edema, warm, radial pulses palpable and symmetrical. Absent: calf tenderness, cyanotic - Neurological Exam Neurological exam: Present: CN II-XII intact, oriented X3, no focal deficits. Absent: pronater drift, facial droop, speech deficit - Skin Skin exam: Present: dry, intact Internal Medicine: Result - Labs CBC & Chem 7: 12/09/17 04:57 12/09/17 04:57 Labs: Short CBC 12/09/17 Range/Units 04:57 WBC 8.3 (4.3-11.1) K/mcL Hgb 13.6 (11.5-15.4) g/dL Hct 40.3 (35.3-44.9) % Plt Count 181 (140-400) K/mcL Neutrophils # 5.0 (1.6-8.9) K/mcL BMP 12/08/17 12/09/17 13:28 04:57 Sodium 121 L 123 L Potassium 3.8 3.7 Chloride 83 L 82 L Carbon Dioxide 29 33 H BUN 20 22 Creatinine 1.27 H 1.25 H Glucose 134 H 108 H Calcium 9.6 9.6 - ABG Interpretation ABG results: PT/INR, D-dimer PT 19.3 Seconds (9.4-12.1) H 12/09/17 04:57 Consult Discharge Plan - Plan Referrals: Elba Tierney CNP [Primary Care Provider] - 12/24/17 1:00 pm ( )
[2017-12-09] MEDS: Aspirin Enteric Coated 81 MG Tablet PO SCH (10:00)
[2017-12-09] MEDS ORDERED: *HR* Warfarin 4 MG TABLET PO ONE (18:00)
[2017-12-10 04:05] LABS: INR 1.7; Prothrombin Time 18.2 Seconds (9.4-12.1)
[2017-12-10 04:46] LABS: Albumin 3.9 g/dL (3.5-5.7); Albumin/Globulin Ratio 1.6 (1.1-2.2); Bilirubin,Total 1.5 mg/dL (0.3-1.0); Calcium 9.7 mg/dL (8.6-10.3); Globulin 2.4 g/dL (2.4-3.5); Magnesium 1.7 mg/dL (1.6-2.6); Potassium 4.5 mEq/L (3.5-5.1); Total Protein 6.3 g/dL (6.4-8.9)
[2017-12-10] MEDS ORDERED: Melatonin 3 MG TABLET PO ONE (05:49)
--- NOTE | 2017-12-10 06:16 | Electrocardiograph Report ---
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
[2017-12-10 07:25] LABS: BUN/Creatinine Ratio 24 (6-26); Blood Urea Nitrogen 21 mg/dL (8-23); Calcium 9.4 mg/dL (8.6-10.3); Carbon Dioxide 27 mEq/L (23-29); Chloride 84 mEq/L (98-107); Glucose 124 mg/dL (70-105); Osmolality,Calculated 248 (280-300); Sodium 117 mEq/L (136-145); eGFR For African Americans > 60 (> 60); eGFR For Non-African Americans 60 (> 60)
[2017-12-10] MEDS: Aspirin Enteric Coated 81 MG Tablet PO SCH (08:54)
[2017-12-10] MEDS ORDERED: Furosemide 40 MG TABLET PO SCH (09:00)
[2017-12-10 09:11] LABS: BUN/Creatinine Ratio 22 (6-26); Blood Urea Nitrogen 21 mg/dL (8-23); Calcium 9.6 mg/dL (8.6-10.3); Carbon Dioxide 27 mEq/L (23-29); Chloride 83 mEq/L (98-107); Glucose 136 mg/dL (70-105); Osmolality,Calculated 249 (280-300); Sodium 117 mEq/L (136-145); eGFR For African Americans > 60 (> 60); eGFR For Non-African Americans 56 (> 60)
--- NOTE | 2017-12-10 09:31 | Nephrology Progress Note ---
Date of Encounter: 12/10/17 Time of Encounter: 09:05 - Assessment and Plan (1) Hyponatremia Current Visit: Yes Status: Acute Hyponatremia related to congestive heart failure and hydrochlorothiazide. HCTZ stopped. Noted restarted on Lasix. Sodium initially improved now back to 117. Repeat lab draw also 117. Unclear why. Continue to follow a diet restricted in fluid and sodium. Sodium intake should not exceed 1500 mg per day. Urine osml ordered, results pending. Renal fct normal I&O's. Will continue to monitor. Subjective Interval history: Sitting up in bed, states is nauseated, only ate few bites of breakfast. No documented urine output though patient states has been getting up to BR to void. . Sodium back down to 117 (120), labs redrawn. Repeat sodium remains 117. Objective - Vital Signs Vital signs: Vital Signs Temp Pulse Resp BP Pulse Ox 12/10/17 06:59 97.8 F 60 16 141/85 95 12/10/17 03:48 97.5 F L 60 14 126/78 95 12/09/17 23:53 97.6 F 61 14 108/70 92 12/09/17 19:34 97.8 F 61 18 133/73 94 12/09/17 15:11 98.3 F 62 16 126/76 97 12/09/17 10:51 97.7 F 59 16 109/50 96 Intake and Output 12/09/17 12/10/17 12/10/17 23:59 07:59 15:59 Output Total 350 / 350 Balance -350 / -350 Output: Urine 350 / 350 Other: Weight 68.492 kg Patient Weight 12/10/17 23:59 Weight 68.492 kg - General Appearance General appearance: Present: well-developed, well-nourished, appears started age EENT: Present: mucous membranes moist Neck: Present: no JVD Respiratory: Present: clear Cardiology: Present: edema, regular rate, regular rhythm Additional Comments: heavy legs in general, very mild pitting edema. Gastrointestinal: Present: normoactive bowel sounds, no tenderness Integumentary: Present: warm and dry Neurologic: Present: alert and oriented x3 - Lab 12/09/17 04:57 12/10/17 08:26 Most recent lab results Calcium 9.6 mg/dL (8.6-10.3) 12/10/17 08:26 Magnesium 1.7 mg/dL (1.6-2.6) 12/10/17 03:32 Urine Creatinine mg/dL 12/08/17 11:33 Urine Sodium 98.0 mEq/L 12/08/17 11:33 Urine Total Protein mg/dL (1-14) 12/08/17 11:33 Consult Discharge Plan - Plan Referrals: Elba Tierney CNP [Primary Care Provider] - 12/24/17 1:00 pm ( )
--- NOTE | 2017-12-10 10:10 | Internal Med Progress Note ---
Date of Encounter: 12/10/17 Time of Encounter: 10:10 - Assessment and plan (1) Hyponatremia Current Visit: Yes Status: Acute Assessment and plan: 1 was notified per nursing staff critically low sodium of 117 this a.m. Did speak with Dr. Graves and updated him on lab work. No neurological changes patient does have lower extremity edema. I did resume Lasix. He advised to continue to closely monitor sodium as well as IV nose Continue with low-sodium diet Continue with fluid restriction Monitor intake and output No neurological changes at this time continue with neuro checks Nephrology has been consulted-Dr. Graves-appreciate recommendations (2) Afib Current Visit: Yes Status: Acute Assessment and plan: rate controlled will continue with Coumadin current INR1.7 we will check daily - pharmacy to dose Coumadin Qualifiers: Atrial fibrillation type: persistent Qualified Code(s): I48.1 - Persistent atrial fibrillation (3) Bronchitis Current Visit: Yes Status: Acute Assessment and plan: Patient prescribed six-day course of Cipro at urgent care due to bronchitis unable to tolerate due to gastric upset Cipro stopped-12/07/17 (4) CKD (chronic kidney disease) stage 3, GFR 30-59 ml/min Current Visit: Yes Status: Acute Assessment and plan: 1 patient does have a history of CKG stage III she is seen by Dr. Graves. Receiving diuretics for CHF presently creatinine is stable at 0.94 2 Lasix resumed hydrochlorothiazide discontinued due to hyponatremia 3 will resume lisinopril 4 consult nephrology-Dr. Graves-appreciate recommendations (5) Swelling of both lower extremities Current Visit: Yes Status: Acute Assessment and plan: 1 patient originally presented with lower extremity swelling she was given hydrochlorothiazide as well as Lasix. We did stop hydrochlorothiazide due to hyponatremia continue with Lasix Encouraged patient to elevate lower extremities. Patient declines the use of OLIVA hose and Mak bandages (6) Congestive heart failure Current Visit: Yes Status: Chronic Assessment and plan: 1 echo obtained 11/18/2016 EF 30-35%-gated EF on 08/20/2017-24% severely dilated left ventricle [address] on fluid restriction monitor intake output daily weights Continue with Lasix Nephrology has been consulted Qualifiers: Heart failure type: systolic Heart failure chronicity: chronic Qualified Code(s): I50.22 - Chronic systolic (congestive) heart failure (7) DVT prophylaxis Current Visit: No Status: Acute Assessment and plan: 1 coumadin - Subjective Interval history: Was notified by nursing staff of critical lab sodium 117 this a.m. No neurological deficits at this time. No seizure activity at this time. Patient denies any headaches vision changes nausea or vomiting chest pain or shortness of breath. She does verbalize anxiety surrounding low-sodium. - Constitutional Vitals: Temp Pulse Resp BP Pulse Ox 97.8 F 60 16 141/85 95 12/10/17 06:59 12/10/17 06:59 12/10/17 06:59 12/10/17 06:59 12/10/17 06:59 General appearance: Present: cooperative, pleasant, answers questions appropriately - Head Head exam: Present: atraumatic, normocephalic - Eye Eye exam: Present: PERRL, conjuntiva pink, sclera anicteric Pupils: Present: PERRL - Neck Neck exam general surgery: Present: supple, trachea midline. Absent: lymphadenopathy - Respiratory Respiratory exam: Present: CTAB, rales. Absent: accessory muscle use, rhonchi, wheezes - Cardiovascular Cardiovascular exam: Present: RRR, +S1, +S2. Absent: diastolic murmur, gallop, rubs, systolic murmur - GI/Abdominal GI/Abdominal exam: Present: normal bowel sounds, soft, no peritoneal signs. Absent: distended, tenderness - Extremities Exam Extremities exam: Present: pedal edema, warm, radial pulses palpable and symmetrical. Absent: calf tenderness, cyanotic - Neurological Exam Neurological exam: Present: CN II-XII intact, oriented X3, no focal deficits. Absent: pronater drift, facial droop, speech deficit - Skin Skin exam: Present: dry, intact Internal Medicine: Result - Labs CBC & Chem 7: 12/09/17 04:57 12/10/17 13:27 Labs: BMP 12/10/17 12/10/17 12/10/17 03:32 06:38 08:26 Sodium 120 L* 117 L* 117 L* Potassium 4.5 4.0 4.0 Chloride 83 L 84 L 83 L Carbon Dioxide 31 H 27 27 BUN 23 21 21 Creatinine 1.06 0.89 0.94 Glucose 117 H 124 H 136 H Calcium 9.7 9.4 9.6 Liver Function 12/10/17 Range/Units 03:32 Total Bilirubin 1.5 H (0.3-1.0) mg/dL AST 20 (13-39) Units/L ALT 11 (7-52) Units/L Alkaline Phosphatase 61 (34-104) Units/L Albumin 3.9 (3.5-5.7) g/dL - ABG Interpretation ABG results: PT/INR, D-dimer PT 18.2 Seconds (9.4-12.1) H 12/10/17 03:32 Consult Discharge Plan - Plan Referrals: Elba Tierney CNP [Primary Care Provider] - 12/24/17 1:00 pm ( )
[2017-12-10 14:27] LABS: Total Volume 24 Hour,Urine 1.94 Liters (0.60-1.60)
[2017-12-10 14:31] LABS: BUN/Creatinine Ratio 22 (6-26); Blood Urea Nitrogen 21 mg/dL (8-23); Calcium 9.3 mg/dL (8.6-10.3); Carbon Dioxide 25 mEq/L (23-29); Chloride 85 mEq/L (98-107); Glucose 120 mg/dL (70-105); Osmolality,Calculated 250 (280-300); Potassium 4.4 mEq/L (3.5-5.1); Sodium 118 mEq/L (136-145); eGFR For African Americans > 60 (> 60); eGFR For Non-African Americans 56 (> 60)
[2017-12-10 14:45] LABS: Creatinine 24 Hour,Urine 485 mg/day (600-1800); Creatinine,Urine 25 mg/dL
[2017-12-10] MEDS ORDERED: *HR* Warfarin 4 MG TABLET PO ONE (18:00)
[2017-12-10 19:58] LABS: BUN/Creatinine Ratio 20 (6-26); Blood Urea Nitrogen 20 mg/dL (8-23); Calcium 9.7 mg/dL (8.6-10.3); Carbon Dioxide 29 mEq/L (23-29); Chloride 80 mEq/L (98-107); Glucose 157 mg/dL (70-105); Osmolality,Calculated 250 (280-300); Potassium 3.9 mEq/L (3.5-5.1); Sodium 117 mEq/L (136-145); eGFR For African Americans > 60 (> 60); eGFR For Non-African Americans 53 (> 60)
[2017-12-11] MEDS ORDERED: Melatonin 3 MG TABLET PO ONE (04:51)
[2017-12-11 05:38] LABS: INR 1.7; Prothrombin Time 18.5 Seconds (9.4-12.1)
[2017-12-11 05:39] LABS: Basophils % 0.3 %; Eosinophils # 0.2 K/mcL (0.0-0.6); Eosinophils % 2.2 %; Hemoglobin 13.7 g/dL (11.5-15.4); Immature Granulocytes % 0.9 % (0-4); Lymphocytes # 2.2 K/mcL (0.6-4.6); Lymphocytes % 24.3 %; Mean Corpuscular HGB Conc 35.1 g/dL (31.6-35.5); Mean Corpuscular Hemoglobin 28.8 pg (28.0-33.3); Mean Corpuscular Volume 82.1 fL (83.0-100.0); Mean Platelet Volume 10.1 fL (9.4-12.4); Monocytes # 1.1 K/mcL (0.0-1.3); Monocytes % 11.5 %; Neutrophils # 5.6 K/mcL (1.6-8.9); Platelet Count 195 K/mcL (140-400); Red Blood Count 4.75 M/mcL (3.82-4.97); Red Cell Distribution Width 13.3 % (11.5-14.5); Segmented Neutrophils % 60.8 %
[2017-12-11 06:46] LABS: BUN/Creatinine Ratio 19 (6-26); Blood Urea Nitrogen 19 mg/dL (8-23); Calcium 9.2 mg/dL (8.6-10.3); Carbon Dioxide 27 mEq/L (23-29); Chloride 82 mEq/L (98-107); Glucose 115 mg/dL (70-105); Osmolality,Calculated 249 (280-300); Potassium 3.7 mEq/L (3.5-5.1); Sodium 118 mEq/L (136-145); eGFR For African Americans > 60 (> 60); eGFR For Non-African Americans 53 (> 60)
[2017-12-11] MEDS ORDERED: Furosemide 20 MG/2 ML VIAL IVP SCH (08:00)
[2017-12-11] MEDS: Aspirin Enteric Coated 81 MG Tablet PO SCH (08:22)
--- NOTE | 2017-12-11 10:40 | Nephrology Progress Note ---
Date of Encounter: 12/11/17 Time of Encounter: 10:00 - Assessment and Plan (1) Hyponatremia Current Visit: Yes Status: Acute Hyponatremia related to congestive heart failure and hydrochlorothiazide. HCTZ stopped. Noted restarted on Lasix. Sodium initially improved, staying at 118. Unclear why no improvement. Continue to follow a diet restricted in fluid and sodium. Sodium intake should not exceed 1500 mg per day. Urine osml 326, TSH 3.285, Random Cortisol 19.8, negligible urine protein. Renal fct normal. Will stop Lasix and start IV 0.9 NS at 75 cc/hr. I&O's. Will continue to monitor. Subjective Interval history: Sitting up in bed, states feels tired. Sodium remains 118. States not eating very much. Objective - Vital Signs Vital signs: Vital Signs Temp Pulse Resp BP Pulse Ox 12/11/17 10:30 98.2 F 60 12 99/64 96 12/11/17 07:02 97.6 F 60 15 119/80 93 12/11/17 02:58 97.6 F 65 16 108/68 96 12/10/17 22:45 97.5 F L 64 16 115/70 95 12/10/17 18:41 97.9 F 61 16 124/72 95 12/10/17 14:55 97.8 F 59 15 128/77 96 12/10/17 11:27 97.6 F 61 15 115/55 97 Intake and Output 12/10/17 12/11/17 12/11/17 23:59 07:59 15:59 Intake Total 0 / 0 240 / 240 240 / 240 Output Total 150 / 150 200 / 200 100 / 100 Balance -150 / -150 40 / 40 140 / 140 Intake: Oral 0 / 0 240 / 240 240 / 240 Output: Urine 150 / 150 200 / 200 100 / 100 Other: Meal Dinner Breakfast Percent of Meal Consumed 25% 10% # Urine Diapers 1 Weight 64.5 kg Patient Weight 12/11/17 23:59 Weight 64.5 kg - General Appearance General appearance: Present: well-developed, well-nourished, appears started age EENT: Present: mucous membranes moist Neck: Present: no JVD Respiratory: Present: clear Cardiology: Present: edema, regular rate, regular rhythm Additional Comments: Heavy legs, trace pitting Gastrointestinal: Present: normoactive bowel sounds, no tenderness Integumentary: Present: warm and dry Neurologic: Present: alert and oriented x3 - Lab 12/11/17 04:15 12/11/17 04:15 Most recent lab results Calcium 9.2 mg/dL (8.6-10.3) 12/11/17 04:15 Magnesium 1.7 mg/dL (1.6-2.6) 12/10/17 03:32 Urine Creatinine 25 mg/dL 12/08/17 11:33 Ur Total Protein 24 Hr TNP 12/08/17 11:33 Urine Sodium 98.0 mEq/L 12/08/17 11:33 Urine Total Protein < 4 mg/dL (1-14) 12/08/17 11:33 Consult Discharge Plan - Plan Referrals: Elba Tierney CNP [Primary Care Provider] - 12/24/17 1:00 pm ( )
[2017-12-11] MEDS: 0.9 % Sodium Chloride 1,000 ML IVC SCH (11:15)
--- NOTE | 2017-12-11 11:29 | Internal Med Progress Note ---
Date of Encounter: 12/11/17 Time of Encounter: 11:28 - Assessment and plan (1) Hyponatremia Current Visit: Yes Status: Acute Assessment and plan: 1 sodium level 118 this morning patient was seen by nephrology-Lasix discontinued patient initiated on IV fluids we will continue to closely monitor sodium Continue with low-sodium diet Continue with fluid restriction Monitor intake and output No neurological changes at this time continue with neuro checks Nephrology has been consulted-Dr. Graves-miladis recommendations (2) Afib Current Visit: Yes Status: Acute Assessment and plan: rate controlled will continue with Coumadin current INR1.7 we will check daily - pharmacy to dose Coumadin continue to monitor Qualifiers: Atrial fibrillation type: persistent Qualified Code(s): I48.1 - Persistent atrial fibrillation (3) Bronchitis Current Visit: Yes Status: Acute Assessment and plan: Patient prescribed six-day course of Cipro at urgent care due to bronchitis unable to tolerate due to gastric upset Cipro stopped-12/07/17 No respiratory issues at this time (4) CKD (chronic kidney disease) stage 3, GFR 30-59 ml/min Current Visit: Yes Status: Acute Assessment and plan: 1 patient does have a history of CKG stage III she is seen by Dr. Graves. Creatinine stable at this time 2 patient has been placed on IV fluids 0.9 normal saline per nephrology 3 will resume lisinopril 4 consult nephrology-Dr. Graves-miladis recommendations (5) Swelling of both lower extremities Current Visit: Yes Status: Acute Assessment and plan: 1 patient originally presented with lower extremity swelling We did stop hydrochlorothiazide due to hyponatremia Lasix stopped per nephrology Encouraged patient to elevate lower extremities. Patient declines the use of OLIVA hose and Mak bandages (6) Congestive heart failure Current Visit: Yes Status: Chronic Assessment and plan: 1 echo obtained 11/18/2016 EF 30-35%-gated EF on 08/20/2017-24% severely dilated left ventricle [address] on fluid restriction monitor intake output daily weights Hold Lasix for now per nephrology recommendations Nephrology has been consulted Qualifiers: Heart failure type: systolic Heart failure chronicity: chronic Qualified Code(s): I50.22 - Chronic systolic (congestive) heart failure (7) DVT prophylaxis Current Visit: No Status: Acute Assessment and plan: 1 coumadin - Subjective Interval history: No complaints today. No signs or symptoms of seizure activity. She is neurologically intact. Denies any headaches or vision changes. She was initiated on IV fluids per nephrology - Constitutional Vitals: Temp Pulse Resp BP Pulse Ox 98.2 F 60 12 99/64 96 12/11/17 10:30 12/11/17 10:30 12/11/17 10:30 12/11/17 10:30 12/11/17 10:30 General appearance: Present: cooperative, pleasant, answers questions appropriately - Head Head exam: Present: atraumatic, normocephalic - Eye Eye exam: Present: PERRL, conjuntiva pink, sclera anicteric Pupils: Present: PERRL - Neck Neck exam general surgery: Present: supple, trachea midline. Absent: lymphadenopathy - Respiratory Respiratory exam: Present: CTAB. Absent: accessory muscle use, rales, rhonchi, wheezes - Cardiovascular Cardiovascular exam: Present: RRR, +S1, +S2. Absent: diastolic murmur, gallop, rubs, systolic murmur - GI/Abdominal GI/Abdominal exam: Present: normal bowel sounds, soft, no peritoneal signs. Absent: distended, tenderness - Extremities Exam Extremities exam: Present: warm, radial pulses palpable and symmetrical. Absent : calf tenderness, cyanotic, pedal edema - Neurological Exam Neurological exam: Present: CN II-XII intact, oriented X3, no focal deficits. Absent: pronater drift, facial droop, speech deficit - Skin Skin exam: Present: dry, intact Internal Medicine: Result - Labs CBC & Chem 7: 12/11/17 04:15 12/11/17 15:48 - ABG Interpretation ABG results: PT/INR, D-dimer PT 18.5 Seconds (9.4-12.1) H 12/11/17 04:15 Consult Discharge Plan - Plan Referrals: Elba Tierney CNP [Primary Care Provider] - 12/24/17 1:00 pm ( )
[2017-12-11] MEDS: Ondansetron ODT 4 MG TAB.RAPDIS SL PRN (16:41)
[2017-12-11] MEDS ORDERED: *HR* Warfarin 5 MG TABLET PO ONE (18:00)
[2017-12-11] MEDS ORDERED: *HR* Promethazine 25 MG/ML VIAL IVP ONE (20:04)
--- NOTE | 2017-12-11 22:57 | Event Note ---
Date of Encounter: 12/11/17 Time of Encounter: 19:55 Alerted by pts. nurse Charlotte that pt. was having nausea after being given Zofran. Spoke w/Cuauhtemoc in Pharmacy regarding alternatives d/t pts. age. Reglan contraindicated. Phenergan 6.25 mg IVP ordered once w/orders to continue monitoring pt.
[2017-12-12] MEDS: 0.9 % Sodium Chloride 1,000 ML IVC SCH ×2 (00:22→14:17)
[2017-12-12 05:08] LABS: Basophils % 0.2 %; Eosinophils # 0.2 K/mcL (0.0-0.6); Eosinophils % 2.2 %; Hematocrit 38.1 % (35.3-44.9); Hemoglobin 12.8 g/dL (11.5-15.4); Lymphocytes # 2.3 K/mcL (0.6-4.6); Lymphocytes % 26.4 %; Mean Corpuscular HGB Conc 33.6 g/dL (31.6-35.5); Mean Corpuscular Hemoglobin 27.9 pg (28.0-33.3); Mean Corpuscular Volume 83.2 fL (83.0-100.0); Mean Platelet Volume 10.1 fL (9.4-12.4); Neutrophils # 5.1 K/mcL (1.6-8.9); Platelet Count 193 K/mcL (140-400); Red Blood Count 4.58 M/mcL (3.82-4.97); Red Cell Distribution Width 13.5 % (11.5-14.5); Segmented Neutrophils % 58.2 %
[2017-12-12 05:15] LABS: INR 2.1; Prothrombin Time 22.6 Seconds (9.4-12.1)
[2017-12-12 05:25] LABS: BUN/Creatinine Ratio 19 (6-26); Blood Urea Nitrogen 19 mg/dL (8-23); Calcium 8.8 mg/dL (8.6-10.3); Carbon Dioxide 28 mEq/L (23-29); Chloride 84 mEq/L (98-107); Glucose 92 mg/dL (70-105); Osmolality,Calculated 250 (280-300); Sodium 119 mEq/L (136-145); eGFR For African Americans > 60 (> 60); eGFR For Non-African Americans 53 (> 60)
[2017-12-12] MEDS: Aspirin Enteric Coated 81 MG Tablet PO SCH (07:30)
--- NOTE | 2017-12-12 08:33 | Nephrology Progress Note ---
Date of Encounter: 12/12/17 Time of Encounter: 08:05 - Assessment and Plan (1) Hyponatremia Current Visit: Yes Status: Acute Hyponatremia related to congestive heart failure and hydrochlorothiazide. HCTZ stopped. Sodium at 119. Unclear why no improvement. Continue to follow a diet restricted in fluid. Urine osml 326, TSH 3.285, Random Cortisol 19.8, negligible urine protein. Renal fct normal. Lasix stopped, continue IV 0.9 NS at 75 cc/hr. I&O's. Will continue to monitor. Subjective Interval history: Sitting up in bed, states feels tired. Sodium 119. States not eating very much. Objective - Vital Signs Vital signs: Vital Signs Temp Pulse Resp BP Pulse Ox 12/12/17 07:14 97.5 F L 60 16 125/74 95 12/12/17 04:05 97.6 F 61 16 99/63 90 12/11/17 23:37 98.3 F 63 16 115/70 98 12/11/17 19:32 97.6 F 60 16 109/68 96 12/11/17 15:37 97.9 F 60 13 106/64 96 12/11/17 15:36 97.9 F 60 Intake and Output 12/11/17 12/12/17 12/12/17 23:59 07:59 15:59 Intake Total 200 / 200 1000 / 1000 Output Total 400 / 400 Balance -200 / -200 1000 / 1000 Intake: IV Fluids 1000 / 1000 0.9 % Sodium Chloride 1,000 ML 1000 / 1000 @ 75 mls/hr IVC .[id number] [facility] Rx #:[id number] Oral 200 / 200 Output: Urine 400 / 400 Other: Meal Dinner Percent of Meal Consumed 20% Weight 64.5 kg Patient Weight 12/12/17 23:59 Weight 64.5 kg - General Appearance General appearance: Present: well-developed, well-nourished, appears started age EENT: Present: mucous membranes moist Neck: Present: no JVD Respiratory: Present: clear Cardiology: Present: edema, regular rate, regular rhythm Additional Comments: heavy legs, mild non pitting Gastrointestinal: Present: normoactive bowel sounds, no tenderness Integumentary: Present: warm and dry Neurologic: Present: alert and oriented x3 - Lab 12/12/17 03:50 12/12/17 03:50 Most recent lab results Calcium 8.8 mg/dL (8.6-10.3) 12/12/17 03:50 Magnesium 1.7 mg/dL (1.6-2.6) 12/10/17 03:32 Urine Creatinine 25 mg/dL 12/08/17 11:33 Ur Total Protein 24 Hr TNP 12/08/17 11:33 Urine Sodium 98.0 mEq/L 12/08/17 11:33 Urine Total Protein < 4 mg/dL (1-14) 12/08/17 11:33 Consult Discharge Plan - Plan Referrals: Elba Tierney CNP [Primary Care Provider] - 12/24/17 1:00 pm ( )
--- NOTE | 2017-12-12 09:06 | Internal Med Progress Note ---
Date of Encounter: 12/12/17 Time of Encounter: 09:00 - Assessment and plan (1) Hyponatremia Current Visit: Yes Status: Acute Assessment and plan: 1 sodium level 119 this morning patient was seen by nephrology-Lasix discontinued patient initiated on IV fluids we will continue to closely monitor sodium Continue with low-sodium diet Continue with fluid restriction Monitor intake and output No neurological changes at this time continue with neuro checks Nephrology has been consulted-Dr. Graves-miladis recommendations (2) Afib Current Visit: Yes Status: Acute Assessment and plan: rate controlled will continue with Coumadin current INR1.7 we will check daily - pharmacy to dose Coumadin continue to monitor Qualifiers: Atrial fibrillation type: persistent Qualified Code(s): I48.1 - Persistent atrial fibrillation (3) Bronchitis Current Visit: Yes Status: Acute Assessment and plan: Patient prescribed six-day course of Cipro at urgent care due to bronchitis unable to tolerate due to gastric upset Cipro stopped 12/07/2017 Patient has been having coughing with clear sputum to the point that she is having some difficulty swallowing. Patient receiving guaifenesin as well as Tessalon advised nursing to give the patient medication as needed for cough Chest x-ray was obtained-compatible with atelectasis versus pneumonia from previous x-ray. We will place on Levaquin renally dosed (4) CKD (chronic kidney disease) stage 3, GFR 30-59 ml/min Current Visit: Yes Status: Acute Assessment and plan: 1 patient does have a history of CKG stage III she is seen by Dr. Graves. Creatinine stable at this time we will continue to monitor 2 patient has been placed on IV fluids 0.9 normal saline per nephrology 3 will hold lisinopril 4 consult nephrology-Dr. Graves-miladis recommendations (5) Swelling of both lower extremities Current Visit: Yes Status: Acute Assessment and plan: 1 patient originally presented with lower extremity swelling We did stop hydrochlorothiazide due to hyponatremia Lasix stopped per nephrology Encouraged patient to elevate lower extremities. Patient declines the use of OLIVA hose and Mak bandages (6) Congestive heart failure Current Visit: Yes Status: Chronic Assessment and plan: 1 echo obtained 11/18/2016 EF 30-35%-gated EF on 08/20/2017-24% severely dilated left ventricle- [address] on fluid restriction monitor intake output daily weights-weight has been steady Hold Lasix for now per nephrology recommendations-continue to monitor Nephrology has been consulted Qualifiers: Heart failure type: systolic Heart failure chronicity: chronic Qualified Code(s): I50.22 - Chronic systolic (congestive) heart failure (7) DVT prophylaxis Current Visit: No Status: Acute Assessment and plan: 1 coumadin - Subjective Interval history: Patient reports some slight confusion this am,she could not recall where she was. A/O X3 now Complains of cough and difficulty swallowin dt phlegm production. Sats are 92% on RA.Coughing clear sputum - Constitutional Vitals: Temp Pulse Resp BP Pulse Ox 97.5 F L 60 16 125/74 95 12/12/17 07:14 12/12/17 07:14 12/12/17 07:14 12/12/17 07:14 12/12/17 07:14 General appearance: Present: cooperative, pleasant, answers questions appropriately - Head Head exam: Present: atraumatic, normocephalic - Eye Eye exam: Present: PERRL, conjuntiva pink, sclera anicteric Pupils: Present: PERRL - Neck Neck exam general surgery: Present: supple, trachea midline. Absent: lymphadenopathy - Respiratory Respiratory exam: Present: wheezes. Absent: accessory muscle use, rales, rhonchi - Cardiovascular Cardiovascular exam: Present: RRR, +S1, +S2. Absent: diastolic murmur, gallop, rubs, systolic murmur - GI/Abdominal GI/Abdominal exam: Present: normal bowel sounds, soft, no peritoneal signs. Absent: distended, tenderness - Extremities Exam Extremities exam: Present: warm, radial pulses palpable and symmetrical. Absent : calf tenderness, cyanotic, pedal edema - Neurological Exam Neurological exam: Present: CN II-XII intact, oriented X3, no focal deficits. Absent: pronater drift, facial droop, speech deficit - Skin Skin exam: Present: dry, intact Internal Medicine: Result - Labs CBC & Chem 7: 12/12/17 03:50 12/12/17 03:50 Labs: Short CBC 12/12/17 Range/Units 03:50 WBC 8.7 (4.3-11.1) K/mcL Hgb 12.8 (11.5-15.4) g/dL Hct 38.1 (35.3-44.9) % Plt Count 193 (140-400) K/mcL Neutrophils # 5.1 (1.6-8.9) K/mcL BMP 12/11/17 12/12/17 15:48 03:50 Sodium 118 L* 119 L* Potassium 4.0 Chloride 84 L Carbon Dioxide 28 BUN 19 Creatinine 0.98 Glucose 92 Calcium 8.8 - ABG Interpretation ABG results: PT/INR, D-dimer PT 22.6 Seconds (9.4-12.1) H 12/12/17 03:50 Consult Discharge Plan - Plan Referrals: Elba Tierney DIRECTOR OF ESTATE [Primary Care Provider] - 12/24/17 1:00 pm ( )
[2017-12-12] MEDS: Benzonatate 100 MG CAPSULE PO PRN (15:17)
[2017-12-12] MEDS: Levofloxacin 500 MG/100 ML 500 MG/100 ML BAG IVPB SCH (16:07)
[2017-12-12] MEDS ORDERED: *HR* Warfarin 5 MG TABLET PO ONE (18:00)
[2017-12-13 03:33] LABS: Basophils % 0.4 %; Eosinophils # 0.2 K/mcL (0.0-0.6); Eosinophils % 1.7 %; Hematocrit 38.4 % (35.3-44.9); Hemoglobin 13.2 g/dL (11.5-15.4); Immature Granulocytes % 1.1 % (0-4); Lymphocytes # 1.9 K/mcL (0.6-4.6); Lymphocytes % 18.8 %; Mean Corpuscular HGB Conc 34.4 g/dL (31.6-35.5); Mean Corpuscular Hemoglobin 28.3 pg (28.0-33.3); Mean Corpuscular Volume 82.4 fL (83.0-100.0); Mean Platelet Volume 10.1 fL (9.4-12.4); Monocytes # 1.2 K/mcL (0.0-1.3); Monocytes % 11.4 %; Neutrophils # 6.8 K/mcL (1.6-8.9); Platelet Count 196 K/mcL (140-400); Red Blood Count 4.66 M/mcL (3.82-4.97); Red Cell Distribution Width 13.8 % (11.5-14.5); Segmented Neutrophils % 66.6 %
[2017-12-13 03:38] LABS: INR 2.6
[2017-12-13 04:08] LABS: BUN/Creatinine Ratio 22 (6-26); Blood Urea Nitrogen 19 mg/dL (8-23); Calcium 8.6 mg/dL (8.6-10.3); Carbon Dioxide 23 mEq/L (23-29); Chloride 87 mEq/L (98-107); Glucose 114 mg/dL (70-105); Osmolality,Calculated 247 (280-300); Potassium 4.3 mEq/L (3.5-5.1); Sodium 117 mEq/L (136-145); eGFR For African Americans > 60 (> 60); eGFR For Non-African Americans > 60 (> 60)
[2017-12-13] MEDS ORDERED: Furosemide 20 MG/2 ML VIAL IVP ONE (05:00)
[2017-12-13] MEDS: Nitroglycerin 0.4 MG TAB.SUBL SL PRN ×3 (05:11→05:33)
[2017-12-13] MEDS ORDERED: GI Cocktail 40 ML EACH PO ONE (06:32)
[2017-12-13] MEDS ORDERED: Furosemide 40 MG/4 ML VIAL IVP ONE (08:23)
--- NOTE | 2017-12-13 08:27 | Nephrology Progress Note ---
Date of Encounter: 12/13/17 Time of Encounter: 08:10 - Assessment and Plan (1) Hyponatremia Current Visit: Yes Status: Acute Hyponatremia related to congestive heart failure and hydrochlorothiazide. HCTZ stopped. Sodium at 117. Unclear why no improvement. Continue to follow a diet restricted in fluid. Urine osml 326, TSH 3.285, Random Cortisol 19.8, negligible urine protein. Renal fct normal. CXR today Mild right basilar airspace opacities without significant change from 12/06/2017 compatible with atelectasis versus pneumonia. Trace bilateralpleural effusion. Will stop IV fluids. Will give one time dose Lasix 40mg IV. No documented I&O's. I&O's. Will continue to monitor. Subjective Interval history: Sitting up in bed, states feels tired. Sodium 117. States not eating very much. States early satiety. Objective - Vital Signs Vital signs: Vital Signs Temp Pulse Resp BP Pulse Ox 12/13/17 06:43 97.8 F 67 15 128/70 96 12/13/17 05:32 148/80 12/13/17 05:25 160/90 12/13/17 01:42 97.4 F L 67 20 156/93 94 12/12/17 22:07 98.0 F 61 16 136/81 94 12/12/17 19:01 97.9 F 59 16 100/67 95 12/12/17 15:46 98.3 F 65 16 114/69 93 12/12/17 11:23 97.8 F 60 20 107/70 97 Intake and Output 12/12/17 12/13/17 12/13/17 23:59 07:59 15:59 Intake Total 100 / 100 1000 / 1000 Balance 100 / 100 1000 / 1000 Intake: IV Fluids 100 / 100 1000 / 1000 0.9 % Sodium Chloride 1,000 ML 1000 / 1000 @ 75 mls/hr IVC .[id number] [facility] Rx #:[id number] Levaquin Premix 500mg/100mL 500 100 / 100 mg In 100 ml @ 100 mls/hr IVPB Q48H [facility] Rx#:[id number] Other: Weight 68.5 kg Patient Weight 12/13/17 23:59 Weight 68.5 kg - General Appearance General appearance: Present: well-developed, well-nourished, appears started age EENT: Present: mucous membranes moist Neck: Present: no JVD Respiratory: Present: rales Additional Comments: fine bibasilar Cardiology: Present: edema, regular rate, regular rhythm Additional Comments: mild non pitting Gastrointestinal: Present: normoactive bowel sounds, no tenderness Integumentary: Present: warm and dry Neurologic: Present: alert and oriented x3 - Lab 12/13/17 03:07 12/13/17 03:07 Most recent lab results Calcium 8.6 mg/dL (8.6-10.3) 12/13/17 03:07 Magnesium 1.7 mg/dL (1.6-2.6) 12/10/17 03:32 Urine Creatinine 25 mg/dL 12/08/17 11:33 Ur Total Protein 24 Hr TNP 12/08/17 11:33 Urine Sodium 98.0 mEq/L 12/08/17 11:33 Urine Total Protein < 4 mg/dL (1-14) 12/08/17 11:33 Consult Discharge Plan - Plan Referrals: Elba Tierney CNP [Primary Care Provider] - 12/24/17 1:00 pm ( )
[2017-12-13] MEDS: Aspirin Enteric Coated 81 MG Tablet PO SCH (09:25)
[2017-12-13] MEDS: 0.9 % Sodium Chloride 1,000 ML IVC SCH (09:55)
--- NOTE | 2017-12-13 15:22 | Internal Med Progress Note ---
Date of Encounter: 12/13/17 Time of Encounter: 15:27 - Assessment and plan (1) Hyponatremia Current Visit: Yes Status: Acute Assessment and plan: Na 117; etiology unknown at this time. Home HCTZ stopped. Recieved IV fluids with no improvemnt in sodium. Remains neurologically intact. Discussed with nephrology on 12/13/17 and IV fluids stopped with development crackles on exam. One-time dose IV Lasix. Liberalize diet as able, add broths to meals. Monitor repeat sodium level. Consider hypertonic solution if sodium continues to drop or becomes symptomatic. Nephrology following (2) Bronchitis Current Visit: Yes Status: Acute Assessment and plan: recently treated with Cipro at urgent care due to bronchitis but unable to tolerate due to gastric upset. Chest x-ray with atelectasis versus pneumonia when compared to previous x-ray. Cont IV Levaquin renally dosed. Resp PCR, urinary antigens pending (3) Chronic atrial fibrillation Current Visit: Yes Status: Acute Assessment and plan: per hx. Rate controlled. Cont hoe BB, coumadin (4) Chronic systolic CHF (congestive heart failure) Current Visit: Yes Status: Acute Assessment and plan: 08/2017 TTE with EF 30% and severely dilated left ventricle. With crackles on exam; likely secondary to IV fluids. IV fluid stopped. Received one- time dose IV Lasix per nephrology. Repeat echo pending (5) CKD (chronic kidney disease) stage 3, GFR 30-59 ml/min Current Visit: Yes Status: Acute Assessment and plan: per hx. Renl function appears better than baseline. Avoid nephrotoxic agents as possible. Monitor repeat CMP (6) Elevated troponin I measurement Current Visit: No Status: Acute Assessment and plan: troponin peaked at 0.04; asymptomatic. Denies chest pain. No acute EKG changes. Possibly demand ischemia with acute illness. Repeat echo pending. (7) DVT prophylaxis Current Visit: No Status: Acute Assessment and plan: coumadin - Subjective Interval history: Seen and examined at bedside. Patient is new to me, information obtained from chart review and patient report. Patient says she feels weak and tired, does not have much of an appetite. No nausea or vomiting. No loose stool. - Constitutional Vitals: Temp Pulse Resp BP Pulse Ox 97.5 F L 65 15 107/71 96 12/13/17 11:25 04/01/18 11:25 12/13/17 11:25 12/13/17 11:25 12/13/17 11:25 General appearance: Present: cooperative, A&O X 3, pleasant, answers questions appropriately - Head Head exam: Present: atraumatic, normocephalic - Eye Eye exam: Present: PERRL, conjuntiva pink, sclera anicteric Pupils: Present: PERRL - Neck Neck exam general surgery: Present: supple, trachea midline. Absent: lymphadenopathy - Respiratory Respiratory exam: Present: CTAB. Absent: accessory muscle use, rales, rhonchi, wheezes - Cardiovascular Cardiovascular exam: Present: RRR, +S1, +S2. Absent: diastolic murmur, gallop, rubs, systolic murmur - GI/Abdominal GI/Abdominal exam: Present: normal bowel sounds, soft, no peritoneal signs. Absent: distended, tenderness - Extremities Exam Extremities exam: Present: warm, radial pulses palpable and symmetrical. Absent : calf tenderness, cyanotic, pedal edema - Neurological Exam Neurological exam: Present: CN II-XII intact, oriented X3, no focal deficits. Absent: pronater drift, facial droop, speech deficit - Skin Skin exam: Present: dry, intact Internal Medicine: Result - Labs CBC & Chem 7: 12/13/17 03:07 12/13/17 03:07 Labs: Short CBC 12/13/17 Range/Units 03:07 WBC 10.1 (4.3-11.1) K/mcL Hgb 13.2 (11.5-15.4) g/dL Hct 38.4 (35.3-44.9) % Plt Count 196 (140-400) K/mcL Neutrophils # 6.8 (1.6-8.9) K/mcL BMP 12/13/17 03:07 Sodium 117 L* Potassium 4.3 Chloride 87 L Carbon Dioxide 23 BUN 19 Creatinine 0.85 Glucose 114 H Calcium 8.6 Cardiac Enzymes 12/13/17 12/13/17 12/13/17 Range/Units 03:07 04:26 09:53 Troponin I 0.04 H* 0.03 0.04 H* (< 0.04) ng/mL - ABG Interpretation ABG results: PT/INR, D-dimer PT 29.0 Seconds (9.4-12.1) H 12/13/17 03:07 Consult Discharge Plan - Plan Referrals: Elba Tierney CNP [Primary Care Provider] - 12/24/17 1:00 pm ( )
[2017-12-13 16:51] LABS: Adenovirus Not Detected (Not Detect); Bordetella Pertussis Not Detected (Not Detect); Chlamydophila pneumoniae Not Detected (Not Detect); Coronavirus 229E Not Detected (Not Detect); Coronavirus HKU1 Not Detected (Not Detect); Coronavirus NL63 Not Detected (Not Detect); Coronavirus OC43 Not Detected (Not Detect); Human Metapneumovirus Not Detected (Not Detect); Human Rhinovirus/Enterovirus Not Detected (Not Detect); Influenza A Subtype 2009 H1 Not Detected (Not Detect); Influenza A Untypeable Not Detected (Not Detect); Influenza B Not Detected (Not Detect); Mycoplasma pneumoniae Not Detected (Not Detect); Parainfluenza Virus 1 Not Detected (Not Detect); Parainfluenza Virus 2 Not Detected (Not Detect); Parainfluenza Virus 3 Not Detected (Not Detect); Parainfluenza Virus 4 Not Detected (Not Detect); Respiratory Syncytial Virus Not Detected (Not Detect)
[2017-12-13] MEDS ORDERED: *HR* Warfarin 2 MG TABLET PO ONE (18:00)
[2017-12-13 23:04] LABS: BUN/Creatinine Ratio 24 (6-26); Blood Urea Nitrogen 21 mg/dL (8-23); Calcium 8.6 mg/dL (8.6-10.3); Carbon Dioxide 25 mEq/L (23-29); Chloride 86 mEq/L (98-107); Glucose 110 mg/dL (70-105); Osmolality,Calculated 250 (280-300); Sodium 118 mEq/L (136-145); eGFR For African Americans > 60 (> 60); eGFR For Non-African Americans 60 (> 60)
[2017-12-14 07:41] LABS: INR 2.5; Prothrombin Time 27.6 Seconds (9.4-12.1)
[2017-12-14] MEDS: Aspirin Enteric Coated 81 MG Tablet PO SCH (07:44)
[2017-12-14 07:52] LABS: BUN/Creatinine Ratio 23 (6-26); Blood Urea Nitrogen 20 mg/dL (8-23); Calcium 8.9 mg/dL (8.6-10.3); Carbon Dioxide 25 mEq/L (23-29); Chloride 87 mEq/L (98-107); Glucose 88 mg/dL (70-105); Osmolality,Calculated 250 (280-300); Potassium 3.9 mEq/L (3.5-5.1); Sodium 119 mEq/L (136-145); eGFR For African Americans > 60 (> 60); eGFR For Non-African Americans > 60 (> 60)
[2017-12-14 09:50] LABS: Uric Acid 5.5 mg/dL (2.3-7.6)
[2017-12-14] MEDS: Ipratropium/Albuterol Neb 3 ML IH SCH ×5 (11:19→23:51)
--- NOTE | 2017-12-14 11:37 | Nephrology Progress Note ---
Date of Encounter: 12/14/17 Time of Encounter: 11:36 - Assessment and Plan (1) Hyponatremia Current Visit: Yes Status: Acute Clinically the patient appears euvolemic. 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 We will recheck a urine osmolality as well as a uric acid level. The patient has been started on sodium chloride tablets. (2) CKD (chronic kidney disease) stage 3, GFR 30-59 ml/min Current Visit: Yes Status: Acute (3) Chronic systolic CHF (congestive heart failure) Current Visit: Yes Status: Acute (4) Chronic atrial fibrillation Current Visit: Yes Status: Acute Subjective Interval history: The patient is complaining of a pill it feels stuck in her throat after swallowing it. Otherwise she denies any other complaints. She denies any shortness of breath. She denies any lower extremity swelling. Her renal function remained stable. Her sodium remains low and has not improved over the past several days. Objective - Vital Signs Vital signs: Vital Signs Temp Pulse Resp BP Pulse Ox 12/14/17 11:24 97.1 F L 60 16 107/71 99 12/14/17 07:19 97.5 F L 58 16 116/74 96 12/14/17 03:42 97.7 F 63 15 93/58 97 12/13/17 23:21 97.7 F 63 16 107/69 97 12/13/17 19:25 97.6 F 61 16 117/60 94 12/13/17 15:57 97.7 F 91 15 118/79 92 Intake and Output 12/13/17 12/14/17 12/14/17 23:59 07:59 15:59 Output Total 500 / 500 Balance -500 / -500 Output: Urine 500 / 500 Other: # Voids 1 Weight 69.3 kg Patient Weight 12/14/17 23:59 Weight 69.3 kg - General Appearance Exam: Patient is alert and oriented. She is in no acute distress. Lungs coarse breath sounds otherwise clear. Heart regular rate and rhythm. Abdomen was benign. There is no lower extremity swelling. - Lab 12/13/17 03:07 12/14/17 05:53 Most recent lab results Calcium 8.9 mg/dL (8.6-10.3) 12/14/17 05:53 Magnesium 1.7 mg/dL (1.6-2.6) 12/10/17 03:32 Urine Creatinine 25 mg/dL 12/08/17 11:33 Ur Total Protein 24 Hr TNP 12/08/17 11:33 Urine Sodium 98.0 mEq/L 12/08/17 11:33 Urine Total Protein < 4 mg/dL (1-14) 12/08/17 11:33 Consult Discharge Plan - Plan Referrals: Elba Tierney CNP [Primary Care Provider] - 12/24/17 1:00 pm ( )
--- NOTE | 2017-12-14 14:45 | Electrocardiograph Report ---
[address] [place], [place] [address] Test Date: 2017-12-13 Pat Name: Mouna Virgen Department: 113 Room: 3B Gender: F Dermatology Procedural Physician: : [id number] Requested By: Maeve Young Order Number: [id number] Reading MD: Bay Urbano Measurements Intervals [place] Rate: 62 P: [place]: 0 QRS: -73 QRSD: 106 T: -66 QT: 403 QTc: 407 Interpretive Statements UNCERTAIN UNDERLYING NARROW COMPLEX RHYTHM ELECTRONIC VENTRICULAR PACEMAKER -- CONTOUR ANALYSIS BASED ON INTRINSIC RHYTHM MARKED LEFT AXIS DEVIATION Electronically Signed On 12-14-2017 14:43:48 EDT by Bay Urbano
--- NOTE | 2017-12-14 14:59 | Internal Med Progress Note ---
Date of Encounter: 12/14/17 Time of Encounter: 09:00 - Assessment and plan (1) Hyponatremia Current Visit: Yes Status: Acute Assessment and plan: 1 sodium level 119 this morning-I did have a [id number] discussion with Dr. Graves this a.m., nephrology recommending salt tablets We will check urine osmolality Continue with fluid restriction Monitor intake and output No neurological changes at this time continue with neuro checks Nephrology has been consulted-Dr. Graves-miladis recommendations (2) Afib Current Visit: Yes Status: Acute Assessment and plan: rate controlled will continue with Coumadin current INR 2.5 we will check daily - pharmacy to dose Coumadin continue to monitor Qualifiers: Atrial fibrillation type: persistent Qualified Code(s): I48.1 - Persistent atrial fibrillation (3) Bronchitis Current Visit: Yes Status: Acute Assessment and plan: Patient prescribed six-day course of Cipro at urgent care due to bronchitis unable to tolerate due to gastric upset Cipro stopped 12/07/2017 Patient's cough has improved . Patient receiving guaifenesin as well as Tessalon advised nursing to give the patient medication as needed for cough Chest x-ray was obtained-compatible with atelectasis versus pneumonia from previous x-ray. We will place on Levaquin renally dosed (4) CKD (chronic kidney disease) stage 3, GFR 30-59 ml/min Current Visit: Yes Status: Acute Assessment and plan: 1 patient does have a history of CKG stage III she is seen by Dr. Graves. Creatinine stable at this time we will continue to monitor 2 Lasix on hold for now per nephro recommendations 3 will hold lisinopril 4 consult nephrology-Dr. Graves-miladis recommendations (5) Swelling of both lower extremities Current Visit: Yes Status: Acute Assessment and plan: 1 Improved -patient originally presented with lower extremity swelling We did stop hydrochlorothiazide due to hyponatremia Lasix stopped per nephrology Encouraged patient to elevate lower extremities. Patient declines the use of OLIVA hose and Mak bandages (6) Congestive heart failure Current Visit: Yes Status: Chronic Assessment and plan: 1 echo obtained 11/18/2016 EF 30-35%-gated EF on 08/20/2017-24% severely dilated left ventricle-repeat echo 12/14/2017 EF-25-30%-has pacemaker 2 we will cont fluid restriction monitor intake output daily weights-weight increased -no lower extremity swelling-no crackles- Hold Lasix for now per nephrology recommendations-continue to monitor Nephrology has been consulted Qualifiers: Heart failure type: systolic Heart failure chronicity: chronic Qualified Code(s): I50.22 - Chronic systolic (congestive) heart failure (7) Dysphagia Current Visit: Yes Status: Acute Assessment and plan: 1 patient has been having difficulty swallowing-speech therapy was consulted recommending mechanical soft diet with ground meat no straws. Will undergo MBS 12/15/2017 to further assess globulus sensation Qualifiers: Dysphagia type: unspecified Qualified Code(s): R13.10 - Dysphagia, unspecified (8) DVT prophylaxis Current Visit: No Status: Acute Assessment and plan: 1 coumadin - Subjective Interval history: Patient states that she feels okay today. She does continue to have some difficulty swallowing particularly pills. She has been evaluated by speech therapy recommending mechanically altered diet with thin liquids no straws. A MBS will be completed tomorrow to further assess globus sensation. - Constitutional Vitals: Temp Pulse Resp BP Pulse Ox 97.1 F L 60 16 107/71 99 12/14/17 11:24 12/14/17 11:24 12/14/17 11:24 12/14/17 11:24 12/14/17 11:24 General appearance: Present: cooperative, A&O X 3, pleasant, answers questions appropriately - Head Head exam: Present: atraumatic, normocephalic - Eye Eye exam: Present: PERRL, conjuntiva pink, sclera anicteric Pupils: Present: PERRL - Neck Neck exam general surgery: Present: supple, trachea midline. Absent: lymphadenopathy - Respiratory Respiratory exam: Present: CTAB. Absent: accessory muscle use, rales, rhonchi, wheezes - Cardiovascular Cardiovascular exam: Present: RRR, +S1, +S2. Absent: diastolic murmur, gallop, rubs, systolic murmur - GI/Abdominal GI/Abdominal exam: Present: normal bowel sounds, soft, no peritoneal signs. Absent: distended, tenderness - Extremities Exam Extremities exam: Present: warm, radial pulses palpable and symmetrical. Absent : calf tenderness, cyanotic, pedal edema - Neurological Exam Neurological exam: Present: CN II-XII intact, oriented X3, no focal deficits. Absent: pronater drift, facial droop, speech deficit - Skin Skin exam: Present: dry, intact Internal Medicine: Result - Labs CBC & Chem 7: 12/13/17 03:07 12/14/17 05:53 Labs: BMP 12/13/17 12/14/17 22:24 05:53 Sodium 118 L* 119 L* Potassium 4.0 3.9 Chloride 86 L 87 L Carbon Dioxide 25 25 BUN 21 20 Creatinine 0.89 0.87 Glucose 110 H 88 Calcium 8.6 8.9 - ABG Interpretation ABG results: PT/INR, D-dimer PT 27.6 Seconds (9.4-12.1) H 12/14/17 05:53 - Impressions Impressions Echocardiogram 12/14/17 15:30 Impressions: Severe left ventricular diastolic dysfunction. LVEF 25-30%. [place] not well visualized, repeat with Definity with focus on apex to ruleout any thrombus if patient is not already on anticoagluation. Severely dilated left atrium. No pulmonary hypertension. Left Ventricular Wall Motion: Rest Echo Findings The mid inferior, basal inferior, apical anterior, mid anterior, basal anterior, apical septal, mid inferior septal, basal inferior septal, apical lateral, mid anterior lateral, basal anterior lateral, mid inferior lateral, basal anterior septal and basal inferior lateral marin were hypokinetic. The apex, apical inferior and mid anterior septal marin were akinetic. Findings: Study Quality * Technically adequate exam. Right Ventricle * Normal right ventricular structure and function. Right Atrium * Normal right atrial size. Interatrial Septum * No evidence of PFO by color Doppler. Aorta * Normally sized aortic root. Left Ventricle * Severe left ventricular diastolic dysfunction. * LVEF 25-30%. * Severe global and segmental left ventricular systolic dysfunction. * Unable to evaluate segmental wall motion due to technical quality. * [place] not well visualized, repeat with Definity with focus on apex to ruleout any thrombus if patient is not already on anticoagluation. Mitral Valve * No mitral stenosis. * Moderately calcified mitral valve leaflets. * Mild mitral regurgitation. Aortic Valve * No aortic stenosis. * Mild aortic regurgitation. Left Atrium * Severely dilated left atrium. Pulmonic Valve * No pulmonic stenosis. * Mild pulmonic regurgitation. Pericardium * There is a small pericardial effusion present. * There is no echocardiographic evidence of tamponade. * Excessive respiratory variation is absent. Tricuspid Valve * Trace tricuspid regurgitation. * No tricuspid stenosis. * Estimated RVSP is 26 mmHg. * No pulmonary hypertension. Device lead * A device lead was visualized in the right atrium and right ventricle. IVC * The IVC is dilated. * < 50% respiratory change. ECG Findings * Paced rhythm. Consult Discharge Plan - Plan Referrals: Elba Tierney CNP [Primary Care Provider] - 12/24/17 1:00 pm ( )
[2017-12-14] MEDS: Levofloxacin 500 MG/100 ML 500 MG/100 ML BAG IVPB SCH (17:09)
[2017-12-14] MEDS ORDERED: *HR* Warfarin 3 MG TABLET PO ONE (18:00)
[2017-12-15] MEDS: Ipratropium/Albuterol Neb 3 ML IH SCH ×6 (03:50→23:50)
[2017-12-15 05:56] LABS: Basophils % 0.4 %; Eosinophils # 0.1 K/mcL (0.0-0.6); Eosinophils % 1.4 %; Hematocrit 37.8 % (35.3-44.9); Hemoglobin 12.6 g/dL (11.5-15.4); Immature Granulocytes % 0.8 % (0-4); Lymphocytes # 1.7 K/mcL (0.6-4.6); Lymphocytes % 20.6 %; Mean Corpuscular HGB Conc 33.3 g/dL (31.6-35.5); Mean Corpuscular Hemoglobin 28.6 pg (28.0-33.3); Mean Corpuscular Volume 85.7 fL (83.0-100.0); Mean Platelet Volume 10.1 fL (9.4-12.4); Monocytes # 0.8 K/mcL (0.0-1.3); Monocytes % 9.9 %; Neutrophils # 5.7 K/mcL (1.6-8.9); Platelet Count 142 K/mcL (140-400); Red Blood Count 4.41 M/mcL (3.82-4.97); Red Cell Distribution Width 13.9 % (11.5-14.5); Segmented Neutrophils % 66.9 %
[2017-12-15 06:25] LABS: INR 2.3
[2017-12-15 06:26] LABS: Alanine Aminotransferase 15 Units/L (7-52); Albumin 3.4 g/dL (3.5-5.7); Albumin/Globulin Ratio 1.4 (1.1-2.2); Alkaline Phosphatase 58 Units/L (34-104); Aspartate Amino Transferase 22 Units/L (13-39); BUN/Creatinine Ratio 20 (6-26); Bilirubin,Total 1.2 mg/dL (0.3-1.0); Blood Urea Nitrogen 17 mg/dL (8-23); Calcium 8.8 mg/dL (8.6-10.3); Carbon Dioxide 24 mEq/L (23-29); Chloride 88 mEq/L (98-107); Globulin 2.4 g/dL (2.4-3.5); Glucose 100 mg/dL (70-105); Osmolality,Calculated 248 (280-300); Potassium 4.4 mEq/L (3.5-5.1); Sodium 118 mEq/L (136-145); Total Protein 5.8 g/dL (6.4-8.9); eGFR For African Americans > 60 (> 60); eGFR For Non-African Americans > 60 (> 60)
--- NOTE | 2017-12-15 08:08 | Nephrology Progress Note ---
Date of Encounter: 12/15/17 Time of Encounter: 08:05 - Assessment and Plan (1) Hyponatremia Current Visit: Yes Status: Acute Clinically the patient appears euvolemic. The patient's serum sodium remains unchanged. Urine osmolality appears to be inappropriately elevated. According to the eyes and nose fluid intake is low. It remains unclear if the patient's hyponatremia is related to some type of SIADH-like syndrome or if there is also a combination of chronic systolic congestive heart failure. She should continue with fluid restriction. I am going to keep her on the sodium fluoride tablets at least for now and continue to monitor her sodium. We need to be careful with salt intake however because of her chronic systolic congestive heart failure. Fortunately she seems to be tolerating the hyponatremia without any apparent difficulty or symptoms. (2) CKD (chronic kidney disease) stage 3, GFR 30-59 ml/min Current Visit: Yes Status: Acute (3) Chronic systolic CHF (congestive heart failure) Current Visit: Yes Status: Acute (4) Chronic atrial fibrillation Current Visit: Yes Status: Acute Subjective Interval history: The patient reports that she feels fairly well. She is going to undergo a swallowing evaluation this morning. She denies any shortness of breath or chest pain or swelling. She has no significant swelling on exam. Echocardiogram does reveal a depressed left ventricular ejection fraction. Serum sodium remains unchanged. Objective - Vital Signs Vital signs: Vital Signs Temp Pulse Resp BP Pulse Ox 12/15/17 07:33 97.9 F 61 16 125/74 100 12/15/17 07:26 16 97 12/15/17 03:50 18 95 12/15/17 02:42 98 F 60 16 118/76 96 12/14/17 23:52 18 96 12/14/17 22:54 97.9 F 63 16 102/67 93 12/14/17 20:04 19 96 12/14/17 19:49 97.7 F 60 22 125/74 95 12/14/17 18:59 97.8 F 68 16 115/68 96 12/14/17 15:57 97.2 F L 60 14 109/68 100 12/14/17 15:53 18 99 12/14/17 11:24 97.1 F L 60 16 107/71 99 12/14/17 11:19 18 98 Intake and Output 12/14/17 12/15/17 12/15/17 23:59 07:59 15:59 Intake Total 580 / 580 Output Total 250 / 250 Balance 330 / 330 Intake: IV Fluids 100 / 100 Levaquin Premix 500mg/100mL 500 100 / 100 mg In 100 ml @ 100 mls/hr IVPB Q48H [facility] Rx#:[id number] Oral 480 / 480 Output: Urine 250 / 250 Other: Meal Dinner Percent of Meal Consumed 10% Weight 67 kg Patient Weight 12/15/17 23:59 Weight 67 kg - General Appearance Exam: Patient is alert and oriented. She is in no acute distress. Lungs clear to auscultation. Heart regular rate and rhythm. Abdomen is benign. There is no appreciable peripheral edema. - Lab 12/15/17 05:22 12/15/17 05:22 Most recent lab results Calcium 8.8 mg/dL (8.6-10.3) 12/15/17 05:22 Magnesium 1.7 mg/dL (1.6-2.6) 12/10/17 03:32 Urine Creatinine 25 mg/dL 12/08/17 11:33 Ur Total Protein 24 Hr TNP 12/08/17 11:33 Urine Sodium 98.0 mEq/L 12/08/17 11:33 Urine Total Protein < 4 mg/dL (1-14) 12/08/17 11:33 Consult Discharge Plan - Plan Referrals: Elba Tierney CNP [Primary Care Provider] - 12/24/17 1:00 pm ( )
[2017-12-15] MEDS: Aspirin Enteric Coated 81 MG Tablet PO SCH (09:01)
--- NOTE | 2017-12-15 17:24 | Internal Med Progress Note ---
Date of Encounter: 12/15/17 Time of Encounter: 17:00 - Assessment and plan (1) Hyponatremia Current Visit: Yes Status: Acute Assessment and plan: Na 117; etiology unknown at this time. Home HCTZ stopped. Recieved IV fluids with no improvemnt in sodium. Remains neurologically intact. Discussed with nephrology on 12/13/17 and IV fluids stopped with development crackles on exam. One-time dose IV Lasix. Liberalize diet as able, add broths to meals. Continue sodium chloride tablets. Monitor repeat sodium level. Nephrology following (2) Congestive heart failure Current Visit: Yes Status: Chronic Assessment and plan: 08/2017 TTE with EF 30% and severely dilated left ventricle. With crackles on exam; likely secondary to IV fluids. IV fluid stopped. Received one- time dose IV Lasix per nephrology. Repeat echo with EF 25-30%, severe left ventricular diastolic dysfunction and severely dilated left atrium. Qualifiers: Heart failure type: systolic Heart failure chronicity: chronic Qualified Code(s): I50.22 - Chronic systolic (congestive) heart failure (3) Bronchitis Current Visit: Yes Status: Acute Assessment and plan: recently treated with Cipro at urgent care due to bronchitis but unable to tolerate due to gastric upset. Chest x-ray with atelectasis versus pneumonia when compared to previous x-ray. Respiratory PCR, urinary antigens negative. Cont IV Levaquin renally dosed. (4) CKD (chronic kidney disease) stage 3, GFR 30-59 ml/min Current Visit: Yes Status: Acute Assessment and plan: per hx. Renl function appears better than baseline. Avoid nephrotoxic agents as possible. Monitor repeat CMP (5) Afib Current Visit: Yes Status: Acute Assessment and plan: per hx. Rate controlled. Cont hoe BB, coumadin Qualifiers: Atrial fibrillation type: persistent Qualified Code(s): I48.1 - Persistent atrial fibrillation (6) Dysphagia Current Visit: Yes Status: Acute Assessment and plan: Evaluated by speech therapy who recommended regular diet with thin liquids; no straws. No further speech therapy or swallow therapy warranted at this time. Qualifiers: Dysphagia type: unspecified Qualified Code(s): R13.10 - Dysphagia, unspecified (7) DVT prophylaxis Current Visit: No Status: Acute Assessment and plan: couamdin - Time Spent With Patient Total time spent is greater than 50% in coordination of care (as documented) at patient's floor/unit and/or counseling patient: - Subjective Interval history: Seen and examined at bedside; says she does not feel well. She feels like she is Too much fluid on her and especially on her legs. No chest pain or short supply breath. Just tired, weak and overall does not feel well. She does not feel she is ready to go home at this time. - Constitutional Vitals: Temp Pulse Resp BP Pulse Ox 98.4 F 69 16 119/74 96 12/15/17 15:54 12/15/17 15:54 12/15/17 15:54 12/15/17 15:54 12/15/17 15:54 General appearance: Present: cooperative, A&O X 3, pleasant, answers questions appropriately - Head Head exam: Present: atraumatic, normocephalic - Eye Eye exam: Present: PERRL, conjuntiva pink, sclera anicteric Pupils: Present: PERRL - Neck Neck exam general surgery: Present: supple, trachea midline. Absent: lymphadenopathy - Respiratory Respiratory exam: Present: CTAB. Absent: accessory muscle use, rales, rhonchi, wheezes - Cardiovascular Cardiovascular exam: Present: RRR, +S1, +S2. Absent: diastolic murmur, gallop, rubs, systolic murmur - GI/Abdominal GI/Abdominal exam: Present: normal bowel sounds, soft, no peritoneal signs. Absent: distended, tenderness - Extremities Exam Extremities exam: Present: warm, radial pulses palpable and symmetrical. Absent : calf tenderness, cyanotic, pedal edema - Neurological Exam Neurological exam: Present: CN II-XII intact, oriented X3, no focal deficits. Absent: pronater drift, facial droop, speech deficit - Skin Skin exam: Present: dry, intact Internal Medicine: Result - Labs CBC & Chem 7: 12/15/17 05:22 12/16/17 05:46 Labs: Short CBC 12/15/17 Range/Units 05:22 WBC 8.5 (4.3-11.1) K/mcL Hgb 12.6 (11.5-15.4) g/dL Hct 37.8 (35.3-44.9) % Plt Count 142 (140-400) K/mcL Neutrophils # 5.7 (1.6-8.9) K/mcL BMP 12/15/17 05:22 Sodium 118 L* Potassium 4.4 Chloride 88 L Carbon Dioxide 24 BUN 17 Creatinine 0.85 Glucose 100 Calcium 8.8 Liver Function 12/15/17 Range/Units 05:22 Total Bilirubin 1.2 H (0.3-1.0) mg/dL AST 22 (13-39) Units/L ALT 15 (7-52) Units/L Alkaline Phosphatase 58 (34-104) Units/L Albumin 3.4 L (3.5-5.7) g/dL - ABG Interpretation ABG results: PT/INR, D-dimer PT 25.0 Seconds (9.4-12.1) H 12/15/17 05:22 - Impressions Impressions Videofluoroscopic Swallow 12/15/17 00:01 IMPRESSION: Swallowing mechanism grossly within normal limits without evidence of aspiration. Please see separate speech pathology report for full discussion of findings and recommendations. D/ / Wili Medrano MD / Wili Medrano MD Interpreting Provider: Wili Medrano MD Consult Discharge Plan - Plan Referrals: Elba Tierney CNP [Primary Care Provider] - 12/24/17 1:00 pm ( )
[2017-12-15] MEDS ORDERED: *HR* Warfarin 3 MG TABLET PO ONE (18:00)
[2017-12-16] MEDS: Ipratropium/Albuterol Neb 3 ML IH SCH ×6 (03:00→23:22)
[2017-12-16] MEDS: Ondansetron ODT 4 MG TAB.RAPDIS SL PRN (05:47)
[2017-12-16 06:29] LABS: INR 2.2
[2017-12-16 06:53] LABS: Alanine Aminotransferase 14 Units/L (7-52); Albumin 3.6 g/dL (3.5-5.7); Albumin/Globulin Ratio 1.4 (1.1-2.2); Alkaline Phosphatase 62 Units/L (34-104); Aspartate Amino Transferase 21 Units/L (13-39); BUN/Creatinine Ratio 20 (6-26); Bilirubin,Total 1.4 mg/dL (0.3-1.0); Blood Urea Nitrogen 16 mg/dL (8-23); Calcium 9.1 mg/dL (8.6-10.3); Carbon Dioxide 26 mEq/L (23-29); Chloride 89 mEq/L (98-107); Globulin 2.6 g/dL (2.4-3.5); Glucose 150 mg/dL (70-105); Osmolality,Calculated 254 (280-300); Potassium 4.6 mEq/L (3.5-5.1); Sodium 120 mEq/L (136-145); Total Protein 6.2 g/dL (6.4-8.9); eGFR For African Americans > 60 (> 60); eGFR For Non-African Americans > 60 (> 60)
[2017-12-16] MEDS: Aspirin Enteric Coated 81 MG Tablet PO SCH (08:51)
--- NOTE | 2017-12-16 09:05 | Nephrology Progress Note ---
Date of Encounter: 12/16/17 Time of Encounter: 09:03 - Assessment and Plan (1) Hyponatremia Current Visit: Yes Status: Acute Clinically the patient appears euvolemic. The patient's serum sodium remains unchanged. Urine osmolality appears to be inappropriately elevated. The patient's serum sodium is mildly improved today. I would continue with the same medical regimen. (2) CKD (chronic kidney disease) stage 3, GFR 30-59 ml/min Current Visit: Yes Status: Acute (3) Chronic systolic CHF (congestive heart failure) Current Visit: Yes Status: Acute (4) Chronic atrial fibrillation Current Visit: Yes Status: Acute Subjective Interval history: The patient is complaining of some abdominal pain today. Apparently she has not had a bowel movement in several days. She denies any nausea vomiting or shortness of breath. Her serum sodium has mildly improved up to 120. Objective - Vital Signs Vital signs: Vital Signs Temp Pulse Resp BP Pulse Ox 12/16/17 06:52 97.5 F L 75 14 162/91 94 12/16/17 03:18 97.5 F L 69 14 142/79 95 12/15/17 23:50 16 93 12/15/17 23:28 98 F 65 17 132/84 96 12/15/17 20:13 17 98 12/15/17 18:49 97.9 F 71 16 133/75 96 12/15/17 16:33 16 98 12/15/17 15:54 98.4 F 69 16 119/74 96 12/15/17 10:41 97.9 F 58 16 104/63 95 Intake and Output 12/15/17 12/16/17 12/16/17 23:59 07:59 15:59 Intake Total 640 / 640 Output Total 150 / 150 Balance 490 / 490 Intake: Oral 240 / 240 Free Water 400 / 400 Output: Urine 150 / 150 Other: Percent of Meal Consumed 40% # Urine Diapers 1 Weight 67.7 kg Patient Weight 12/16/17 23:59 Weight 67.7 kg - General Appearance Exam: Patient is alert and oriented. She is in no acute distress. Lungs clear to auscultation. Heart regular rate and rhythm. Abdomen shows normal bowel sounds. Abdomen is soft. There is no guarding or rigidity. There is no peripheral edema. - Lab 12/15/17 05:22 12/16/17 05:46 Most recent lab results Calcium 9.1 mg/dL (8.6-10.3) 12/16/17 05:46 Magnesium 1.7 mg/dL (1.6-2.6) 12/10/17 03:32 Urine Creatinine 25 mg/dL 12/08/17 11:33 Ur Total Protein 24 Hr TNP 12/08/17 11:33 Urine Sodium 98.0 mEq/L 12/08/17 11:33 Urine Total Protein < 4 mg/dL (1-14) 12/08/17 11:33 Consult Discharge Plan - Plan Referrals: Elba Tierney CNP [Primary Care Provider] - 12/24/17 1:00 pm ( )
[2017-12-16 16:35] LABS: Bilirubin,Urine Negative (Negative); Blood,Urine Negative (Negative); Clarity,Urine Clear (Clear); Color,Urine Yellow (Yellow); Glucose,Urine (UA) Normal (Normal); Ketones,Urine Negative (Negative); Leukocyte Esterase,Urine Negative (Negative); Nitrite,Urine Negative (Negative); Protein,Urine Negative (Neg-Trace); Specific Gravity,Urine 1.015 (1.010-1.025); Urobilinogen,Urine Normal (Normal)
[2017-12-16] MEDS: Levofloxacin 500 MG/100 ML 500 MG/100 ML BAG IVPB SCH (17:09)
--- NOTE | 2017-12-16 17:24 | Internal Med Progress Note ---
Date of Encounter: 12/16/17 Time of Encounter: 17:21 - Assessment and plan (1) Hyponatremia Current Visit: Yes Status: Acute Assessment and plan: Na 117; etiology unknown at this time. Home HCTZ stopped. Recieved IV fluids with no improvemnt in sodium. Remains neurologically intact. Discussed with nephrology on 12/13/17 and IV fluids stopped with development crackles on exam. One-time dose IV Lasix. Liberalize diet as able, add broths to meals. Continue sodium chloride tablets. Monitor repeat sodium level. Nephrology following. Na 120 on 12/16/17 (2) Congestive heart failure Current Visit: Yes Status: Chronic Assessment and plan: 08/2017 TTE with EF 30% and severely dilated left ventricle. With crackles on exam; likely secondary to IV fluids. IV fluid stopped. Received one- time dose IV Lasix per nephrology. Repeat echo with EF 25-30%, severe left ventricular diastolic dysfunction and severely dilated left atrium. Appears euvolemic. Continue home BB, ARB. Qualifiers: Heart failure type: systolic Heart failure chronicity: chronic Qualified Code(s): I50.22 - Chronic systolic (congestive) heart failure (3) Bronchitis Current Visit: Yes Status: Acute Assessment and plan: recently treated with Cipro at urgent care due to bronchitis but unable to tolerate due to gastric upset. Chest x-ray with atelectasis versus pneumonia when compared to previous x-ray. Respiratory PCR, urinary antigens negative. Cont IV Levaquin renally dosed. (4) CKD (chronic kidney disease) stage 3, GFR 30-59 ml/min Current Visit: Yes Status: Acute Assessment and plan: per hx. Renl function appears better than baseline. Avoid nephrotoxic agents as possible. Monitor repeat CMP (5) Afib Current Visit: Yes Status: Acute Assessment and plan: per hx. Rate controlled. Cont hoe BB, coumadin Qualifiers: Atrial fibrillation type: persistent Qualified Code(s): I48.1 - Persistent atrial fibrillation (6) Dysphagia Current Visit: Yes Status: Acute Assessment and plan: Evaluated by speech therapy who recommended regular diet with thin liquids; no straws. No further speech therapy or swallow therapy warranted at this time. Qualifiers: Dysphagia type: unspecified Qualified Code(s): R13.10 - Dysphagia, unspecified (7) Constipation Current Visit: Yes Status: Acute Assessment and plan: add miralax, colace. Qualifiers: Constipation type: slow transit constipation Qualified Code(s): K59.01 - Slow transit constipation (8) Left ventricular thrombus Current Visit: Yes Status: Acute Assessment and plan: possible. [place] not well visualized on 12/14/2017 TTE. Recommend repeating TTE with Definity with focus on [place] rule out any thrombus if patient is not already on anticoagulation. Patient is on Coumadin for chronic A. fib. INR has been therapeutic. Will discuss with cardiology. (9) DVT prophylaxis Current Visit: No Status: Acute Assessment and plan: couamdin - Time Spent With Patient Total time spent is greater than 50% in coordination of care (as documented) at patient's floor/unit and/or counseling patient: - Subjective Interval history: Seen and examined at bedside; cont to say she does not feel well. She is complaining of constipation and urinary incontinence. No CP or SOB - Constitutional Vitals: Temp Pulse Resp BP Pulse Ox 98.0 F 63 16 125/72 86 12/16/17 15:27 12/16/17 15:27 12/16/17 16:52 12/16/17 15:27 12/16/17 16:52 General appearance: Present: cooperative, A&O X 3, pleasant, answers questions appropriately - Head Head exam: Present: atraumatic, normocephalic - Eye Eye exam: Present: PERRL, conjuntiva pink, sclera anicteric Pupils: Present: PERRL - Neck Neck exam general surgery: Present: supple, trachea midline. Absent: lymphadenopathy - Respiratory Respiratory exam: Present: CTAB. Absent: accessory muscle use, rales, rhonchi, wheezes - Cardiovascular Cardiovascular exam: Present: RRR, +S1, +S2. Absent: diastolic murmur, gallop, rubs, systolic murmur - GI/Abdominal GI/Abdominal exam: Present: normal bowel sounds, soft, no peritoneal signs. Absent: distended, tenderness - Extremities Exam Extremities exam: Present: warm, radial pulses palpable and symmetrical. Absent : calf tenderness, cyanotic, pedal edema - Neurological Exam Neurological exam: Present: CN II-XII intact, oriented X3, no focal deficits. Absent: pronater drift, facial droop, speech deficit - Skin Skin exam: Present: dry, intact Internal Medicine: Result - Labs CBC & Chem 7: 12/15/17 05:22 12/16/17 05:46 Labs: BMP 12/16/17 05:46 Sodium 120 L* Potassium 4.6 Chloride 89 L Carbon Dioxide 26 BUN 16 Creatinine 0.80 Glucose 150 H Calcium 9.1 Liver Function 12/16/17 Range/Units 05:46 Total Bilirubin 1.4 H (0.3-1.0) mg/dL AST 21 (13-39) Units/L ALT 14 (7-52) Units/L Alkaline Phosphatase 62 (34-104) Units/L Albumin 3.6 (3.5-5.7) g/dL Urine 12/16/17 Range/Units 16:00 Urine Color Yellow (Yellow) Urine Clarity Clear (Clear) Urine pH 7.0 (5.0-8.0) pH Units Ur Specific [place] 1.015 (1.010-1.025) Urine Protein Negative (Neg-Trace) mg/dL Urine Glucose (UA) Normal (Normal) mg/dL - ABG Interpretation ABG results: PT/INR, D-dimer PT 24.0 Seconds (9.4-12.1) H 12/16/17 05:46 Consult Discharge Plan - Plan Referrals: Elba Tierney CNP [Primary Care Provider] - 12/24/17 1:00 pm ( )
[2017-12-16] MEDS ORDERED: *HR* Warfarin 4 MG TABLET PO ONE (18:00)
[2017-12-17] MEDS: Ipratropium/Albuterol Neb 3 ML IH SCH ×6 (03:24→22:53)
[2017-12-17 07:20] LABS: BUN/Creatinine Ratio 20 (6-26); Blood Urea Nitrogen 14 mg/dL (8-23); Calcium 8.8 mg/dL (8.6-10.3); Carbon Dioxide 20 mEq/L (23-29); Chloride 96 mEq/L (98-107); Glucose 99 mg/dL (70-105); Osmolality,Calculated 247 (280-300); Potassium 5.2 mEq/L (3.5-5.1); Sodium 118 mEq/L (136-145); eGFR For African Americans > 60 (> 60); eGFR For Non-African Americans > 60 (> 60)
[2017-12-17 07:22] LABS: INR 2.5; Prothrombin Time 26.9 Seconds (9.4-12.1)
[2017-12-17] MEDS: Aspirin Enteric Coated 81 MG Tablet PO SCH (09:34)
--- NOTE | 2017-12-17 09:56 | Nephrology Progress Note ---
Date of Encounter: 12/17/17 Time of Encounter: 09:35 - Assessment and Plan (1) Hyponatremia Current Visit: Yes Status: Acute Initial improvement in sodium with salt tablets. Sodium declined today 118. Unclear why. Will start on Lasix 20 mg po to increase free water excretion. Will do CT of head and abdomen to make sure not overlooking malignacy causing SIADH syndrome. Renal fct normal. No documented I&O's. Will continue to monitor. Subjective Interval history: Sitting up in bed, states feels good, would like to go home. Sodium decreased 118. Objective - Vital Signs Vital signs: Vital Signs Temp Pulse Resp BP Pulse Ox 12/17/17 08:00 16 96 12/17/17 06:57 97.7 F 66 14 131/83 97 12/17/17 02:56 97.6 F 60 18 123/78 95 12/16/17 23:22 15 95 12/16/17 23:15 97.8 F 60 14 105/68 94 12/16/17 20:44 97.5 F L 65 14 139/78 95 12/16/17 16:52 16 86 12/16/17 15:27 98.0 F 63 14 125/72 95 12/16/17 11:05 18 96 12/16/17 10:49 97.8 F 61 20 135/72 94 Intake and Output 12/16/17 12/17/17 12/17/17 23:59 07:59 15:59 Intake Total 618 / 618 Balance 618 / 618 Intake: IV Fluids 100 / 100 Levaquin Premix 500mg/100mL 500 100 / 100 mg In 100 ml @ 100 mls/hr IVPB Q48H [facility] Rx#:[id number] Oral 518 / 518 Other: Meal Dinner Percent of Meal Consumed 50% Weight 68 kg Patient Weight 12/17/17 23:59 Weight 68 kg - General Appearance General appearance: Present: well-developed, well-nourished, appears started age EENT: Present: mucous membranes moist Neck: Present: no JVD Respiratory: Present: clear Cardiology: Present: edema, regular rate, regular rhythm Additional Comments: mild non pitting Gastrointestinal: Present: normoactive bowel sounds, no tenderness Integumentary: Present: warm and dry Neurologic: Present: alert and oriented x3 - Lab 12/15/17 05:22 12/17/17 05:38 Most recent lab results Calcium 8.8 mg/dL (8.6-10.3) 12/17/17 05:38 Magnesium 1.7 mg/dL (1.6-2.6) 12/10/17 03:32 Urine Creatinine 25 mg/dL 12/08/17 11:33 Ur Total Protein 24 Hr TNP 12/08/17 11:33 Urine Sodium 98.0 mEq/L 12/08/17 11:33 Urine Total Protein < 4 mg/dL (1-14) 12/08/17 11:33 Consult Discharge Plan - Plan Referrals: Elba Tierney CNP [Primary Care Provider] - 12/24/17 1:00 pm ( )
[2017-12-17] MEDS: Furosemide 20 MG TABLET PO SCH (12:24)
--- NOTE | 2017-12-17 17:58 | Internal Med Progress Note ---
Date of Encounter: 12/17/17 Time of Encounter: 17:56 - Assessment and plan (1) Hyponatremia Current Visit: Yes Status: Acute Assessment and plan: Na 117; etiology unknown at this time. Home HCTZ stopped. Recieved IV fluids with no improvemnt in sodium. Remains neurologically intact. Discussed with nephrology on 12/13/17 and IV fluids stopped with development crackles on exam. One-time dose IV Lasix. Liberalize diet as able, add broths to meals. Continue sodium chloride tablets. Monitor repeat sodium level. Nephrology following. Na 118 on 12/17/17. Chest/ABD CT to assess for malignant etiology pending (2) Congestive heart failure Current Visit: Yes Status: Chronic Assessment and plan: 08/2017 TTE with EF 30% and severely dilated left ventricle. With crackles on exam; likely secondary to IV fluids. IV fluid stopped. Received one- time dose IV Lasix per nephrology. Repeat echo with EF 25-30%, severe left ventricular diastolic dysfunction and severely dilated left atrium. Appears euvolemic. IV lasix added per Nephrology. Continue home BB, ARB. Qualifiers: Heart failure type: systolic Heart failure chronicity: chronic Qualified Code(s): I50.22 - Chronic systolic (congestive) heart failure (3) Bronchitis Current Visit: Yes Status: Acute Assessment and plan: recently treated with Cipro at urgent care due to bronchitis but unable to tolerate due to gastric upset. Chest x-ray with atelectasis versus pneumonia when compared to previous x-ray. Respiratory PCR, urinary antigens negative. Cont IV Levaquin renally dosed. (4) CKD (chronic kidney disease) stage 3, GFR 30-59 ml/min Current Visit: Yes Status: Acute Assessment and plan: per hx. Renl function appears better than baseline. Avoid nephrotoxic agents as possible. Monitor repeat CMP (5) Afib Current Visit: Yes Status: Acute Assessment and plan: per hx. Rate controlled. Cont hoe BB, coumadin Qualifiers: Atrial fibrillation type: persistent Qualified Code(s): I48.1 - Persistent atrial fibrillation (6) Dysphagia Current Visit: Yes Status: Acute Assessment and plan: Evaluated by speech therapy who recommended regular diet with thin liquids; no straws. No further speech therapy or swallow therapy warranted at this time. Qualifiers: Dysphagia type: unspecified Qualified Code(s): R13.10 - Dysphagia, unspecified (7) Constipation Current Visit: Yes Status: Acute Assessment and plan: add miralax, colace. Qualifiers: Constipation type: slow transit constipation Qualified Code(s): K59.01 - Slow transit constipation (8) Left ventricular thrombus Current Visit: Yes Status: Acute Assessment and plan: possible. [place] not well visualized on 12/14/2017 TTE. Recommend repeating TTE with Definity with focus on [place] rule out any thrombus if patient is not already on anticoagulation. Patient is on Coumadin for chronic A. fib. INR has been therapeutic. Will discuss with cardiology. (9) Hyperkalemia Current Visit: Yes Status: Acute Assessment and plan: K 5.2; hold on Kayexalate. Lasix ordered per nephrology which will likely decrease potassium. Monitor repeat CMP. (10) DVT prophylaxis Current Visit: No Status: Acute Assessment and plan: couamdin - Time Spent With Patient Total time spent is greater than 50% in coordination of care (as documented) at patient's floor/unit and/or counseling patient: - Subjective Interval history: Seen and examined at bedside; cont to say she does not feel well. She is frustrated with being in the hospital for so long. Still has not had a bowel movement. No CP or SOB - Constitutional Vitals: Temp Pulse Resp BP Pulse Ox 97.9 F 59 14 107/66 97 12/17/17 15:46 12/17/17 15:46 12/17/17 15:46 12/17/17 15:46 12/17/17 15:46 General appearance: Present: cooperative, A&O X 3, pleasant, answers questions appropriately - Head Head exam: Present: atraumatic, normocephalic - Eye Eye exam: Present: PERRL, conjuntiva pink, sclera anicteric Pupils: Present: PERRL - Neck Neck exam general surgery: Present: supple, trachea midline. Absent: lymphadenopathy - Respiratory Respiratory exam: Present: CTAB. Absent: accessory muscle use, rales, rhonchi, wheezes - Cardiovascular Cardiovascular exam: Present: RRR, +S1, +S2. Absent: diastolic murmur, gallop, rubs, systolic murmur - GI/Abdominal GI/Abdominal exam: Present: normal bowel sounds, soft, no peritoneal signs. Absent: distended, tenderness - Extremities Exam Extremities exam: Present: warm, radial pulses palpable and symmetrical. Absent : calf tenderness, cyanotic, pedal edema - Neurological Exam Neurological exam: Present: CN II-XII intact, oriented X3, no focal deficits. Absent: pronater drift, facial droop, speech deficit - Skin Skin exam: Present: dry, intact Internal Medicine: Result - Labs CBC & Chem 7: 12/15/17 05:22 12/17/17 05:38 Labs: BMP 12/17/17 05:38 Sodium 118 L* Potassium 5.2 H Chloride 96 L Carbon Dioxide 20 L BUN 14 Creatinine 0.69 Glucose 99 Calcium 8.8 - ABG Interpretation ABG results: PT/INR, D-dimer PT 26.9 Seconds (9.4-12.1) H 12/17/17 05:38 - Impressions Impressions Abdomen/Pelvis CT 12/17/17 14:30 IMPRESSION: 1. Small to moderate right and trace to small left pleural effusions with associated passive atelectasis in the basilar segments of the bilateral lower lobes. Superimposed pneumonia is suspected especially on the right. 2. No findings suggestive of malignancy in the chest, abdomen, or pelvis with evaluation partially limited by lack of intravenous contrast administration. 3. Incidental findings as above. D/ / Blade Mancera MD / Blade Mancera MD Interpreting Provider: Blade Mancera MD Chest CT 12/17/17 14:30 IMPRESSION: 1. Small to moderate right and trace to small left pleural effusions with associated passive atelectasis in the basilar segments of the bilateral lower lobes. Superimposed pneumonia is suspected especially on the right. 2. No findings suggestive of malignancy in the chest, abdomen, or pelvis with evaluation partially limited by lack of intravenous contrast administration. 3. Incidental findings as above. D/ / Blade Mancera MD / Blade Mancera MD Interpreting Provider: Blade Mancera MD Consult Discharge Plan - Plan Instructions: Hyponatremia (DC), Hyponatremia (GEN) Referrals: Elba Tierney, MARLYS [Primary Care Provider] - 12/24/17 1:00 pm ( )
[2017-12-17] MEDS ORDERED: *HR* Warfarin 3 MG TABLET PO ONE (18:00)
[2017-12-18] MEDS: Ondansetron ODT 4 MG TAB.RAPDIS SL PRN (03:57)
[2017-12-18] MEDS: Ipratropium/Albuterol Neb 3 ML IH SCH ×6 (04:39→23:13)
[2017-12-18 07:26] LABS: Hematocrit 39.8 % (35.3-44.9); Hemoglobin 13.3 g/dL (11.5-15.4); Mean Corpuscular HGB Conc 33.4 g/dL (31.6-35.5); Mean Corpuscular Hemoglobin 28.5 pg (28.0-33.3); Mean Corpuscular Volume 85.4 fL (83.0-100.0); Mean Platelet Volume 10.1 fL (9.4-12.4); Platelet Count 211 K/mcL (140-400); Red Blood Count 4.66 M/mcL (3.82-4.97); Red Cell Distribution Width 14.1 % (11.5-14.5)
[2017-12-18 07:36] LABS: INR 2.4; Prothrombin Time 26.7 Seconds (9.4-12.1)
[2017-12-18 07:47] LABS: BUN/Creatinine Ratio 18 (6-26); Blood Urea Nitrogen 16 mg/dL (8-23); Calcium 9.4 mg/dL (8.6-10.3); Carbon Dioxide 26 mEq/L (23-29); Chloride 89 mEq/L (98-107); Glucose 118 mg/dL (70-105); Osmolality,Calculated 260 (280-300); Potassium 4.5 mEq/L (3.5-5.1); Sodium 124 mEq/L (136-145); eGFR For African Americans > 60 (> 60); eGFR For Non-African Americans 58 (> 60)
[2017-12-18] MEDS: Furosemide 20 MG TABLET PO SCH (09:30)
[2017-12-18] MEDS: Aspirin Enteric Coated 81 MG Tablet PO SCH (09:30)
--- NOTE | 2017-12-18 11:06 | Nephrology Progress Note ---
Date of Encounter: 12/18/17 Time of Encounter: 10:25 - Assessment and Plan (1) Hyponatremia Current Visit: Yes Status: Acute Sodium improving, 124. Salt tablets. Started on Lasix 20 mg po to increase free water excretion. CT of head and abdomen to make sure not overlooking malignancy causing SIADH syndrome-negative findings. Renal fct normal. No documented I&O' s. Will continue to monitor. Subjective Interval history: States feels weak today, following enema with good results. Objective - Vital Signs Vital signs: Vital Signs Temp Pulse Resp BP Pulse Ox 12/18/17 07:37 97.9 F 60 14 106/63 92 12/18/17 04:38 97.5 F L 64 18 129/79 96 12/17/17 23:23 97.9 F 62 16 114/74 97 12/17/17 22:53 16 93 12/17/17 20:10 16 97 12/17/17 19:58 97.3 F L 60 18 125/64 96 12/17/17 15:46 97.9 F 59 14 107/66 97 12/17/17 11:30 97.8 F 66 14 105/65 98 12/17/17 11:06 16 92 Intake and Output 12/17/17 12/18/17 12/18/17 23:59 07:59 15:59 Output Total 150 / 150 Balance -150 / -150 Output: Urine 150 / 150 Other: Stool Size Large Moderate Stool Consistency liquid loose liquid Stool Characteristics Tarry Stool Color Brown Brown # Voids 1 # Urine Diapers 1 # Bowel Movements 1 # Bowel Movement Diapers 1 1 Weight 70.1 kg Patient Weight 12/18/17 23:59 Weight 70.1 kg - General Appearance General appearance: Present: appears started age, frail EENT: Present: mucous membranes moist Neck: Present: no JVD Respiratory: Present: clear Cardiology: Present: edema, regular rate, regular rhythm Additional Comments: non pitting Gastrointestinal: Present: normoactive bowel sounds, no tenderness Integumentary: Present: warm and dry Neurologic: Present: alert and oriented x3 - Lab 12/18/17 06:32 12/18/17 06:32 Most recent lab results Calcium 9.4 mg/dL (8.6-10.3) 12/18/17 06:32 Magnesium 1.7 mg/dL (1.6-2.6) 12/10/17 03:32 Urine Creatinine 25 mg/dL 12/08/17 11:33 Ur Total Protein 24 Hr TNP 12/08/17 11:33 Urine Sodium 98.0 mEq/L 12/08/17 11:33 Urine Total Protein < 4 mg/dL (1-14) 12/08/17 11:33 Consult Discharge Plan - Plan Instructions: Hyponatremia (DC), Hyponatremia (GEN) Referrals: Elba Tierney CNP [Primary Care Provider] - 12/24/17 1:00 pm ( )
[2017-12-18] MEDS: Levofloxacin 500 MG/100 ML 500 MG/100 ML BAG IVPB SCH (15:45)
--- NOTE | 2017-12-18 15:57 | Internal Med Progress Note ---
Date of Encounter: 12/18/17 Time of Encounter: 15:55 - Assessment and plan (1) Hyponatremia Current Visit: Yes Status: Acute Assessment and plan: Na 117; etiology unknown at this time. Home HCTZ stopped. Recieved IV fluids with no improvemnt in sodium. Remains neurologically intact. Discussed with nephrology on 12/13/17 and IV fluids stopped with development crackles on exam. One-time dose IV Lasix. Liberalize diet as able, add broths to meals. Continue sodium chloride tablets. Monitor repeat sodium level. Nephrology following. Na 124 on 12/18/17 (2) Congestive heart failure Current Visit: Yes Status: Chronic Assessment and plan: 08/2017 TTE with EF 30% and severely dilated left ventricle. With crackles on exam; likely secondary to IV fluids. IV fluid stopped. Received one- time dose IV Lasix per nephrology. Repeat echo with EF 25-30%, severe left ventricular diastolic dysfunction and severely dilated left atrium. Appears euvolemic. IV lasix added per Nephrology. Continue home BB, ARB. Qualifiers: Heart failure type: systolic Heart failure chronicity: chronic Qualified Code(s): I50.22 - Chronic systolic (congestive) heart failure (3) Bronchitis Current Visit: Yes Status: Acute Assessment and plan: recently treated with Cipro at urgent care due to bronchitis but unable to tolerate due to gastric upset. Chest x-ray with atelectasis versus pneumonia when compared to previous x-ray. Respiratory PCR, urinary antigens negative. Cont IV Levaquin renally dosed. (4) CKD (chronic kidney disease) stage 3, GFR 30-59 ml/min Current Visit: Yes Status: Acute Assessment and plan: per hx. Renl function appears better than baseline. Avoid nephrotoxic agents as possible. Monitor repeat CMP (5) Afib Current Visit: Yes Status: Acute Assessment and plan: per hx. Rate controlled. Cont hoe BB, coumadin Qualifiers: Atrial fibrillation type: persistent Qualified Code(s): I48.1 - Persistent atrial fibrillation (6) Dysphagia Current Visit: Yes Status: Acute Assessment and plan: Evaluated by speech therapy who recommended regular diet with thin liquids; no straws. No further speech therapy or swallow therapy warranted at this time. Qualifiers: Dysphagia type: unspecified Qualified Code(s): R13.10 - Dysphagia, unspecified (7) Constipation Current Visit: Yes Status: Acute Assessment and plan: add miralax, colace. Resolved as of 12/17/17 Qualifiers: Constipation type: slow transit constipation Qualified Code(s): K59.01 - Slow transit constipation (8) Left ventricular thrombus Current Visit: Yes Status: Acute Assessment and plan: possible. [place] not well visualized on 12/14/2017 TTE. Recommend repeating TTE with Definity with focus on [place] rule out any thrombus if patient is not already on anticoagulation. Patient is on Coumadin for chronic A. fib. INR has been therapeutic. Follow-up outpatient with Cardiology (9) Hyperkalemia Current Visit: Yes Status: Acute Assessment and plan: K 5.2; hold on Kayexalate. Lasix ordered per nephrology which will likely decrease potassium. Monitor repeat CMP. K 4.5 on 12/18 (10) DVT prophylaxis Current Visit: No Status: Acute Assessment and plan: couamdin - Time Spent With Patient Total time spent is greater than 50% in coordination of care (as documented) at patient's floor/unit and/or counseling patient: - Subjective Interval history: Seen and examined at bedside; says she feels much better today. She had a bowel movement last night area sodium improving today. She has been ambulatory in the hallway. No chest pain or shortness of breath. - Constitutional Vitals: Temp Pulse Resp BP Pulse Ox 97.8 F 59 14 93/56 100 12/18/17 15:36 12/18/17 15:36 12/18/17 15:36 12/18/17 15:36 12/18/17 15:36 General appearance: Present: cooperative, A&O X 3, pleasant, answers questions appropriately - Head Head exam: Present: atraumatic, normocephalic - Eye Eye exam: Present: PERRL, conjuntiva pink, sclera anicteric Pupils: Present: PERRL - Neck Neck exam general surgery: Present: supple, trachea midline. Absent: lymphadenopathy - Respiratory Respiratory exam: Present: CTAB. Absent: accessory muscle use, rales, rhonchi, wheezes - Cardiovascular Cardiovascular exam: Present: RRR, +S1, +S2. Absent: diastolic murmur, gallop, rubs, systolic murmur - GI/Abdominal GI/Abdominal exam: Present: normal bowel sounds, soft, no peritoneal signs. Absent: distended, tenderness - Extremities Exam Extremities exam: Present: warm, radial pulses palpable and symmetrical. Absent : calf tenderness, cyanotic, pedal edema - Neurological Exam Neurological exam: Present: CN II-XII intact, oriented X3, no focal deficits. Absent: pronater drift, facial droop, speech deficit - Skin Skin exam: Present: dry, intact Internal Medicine: Result - Labs CBC & Chem 7: 12/18/17 06:32 12/18/17 06:32 Labs: Short CBC 12/18/17 Range/Units 06:32 WBC 10.8 (4.3-11.1) K/mcL Hgb 13.3 (11.5-15.4) g/dL Hct 39.8 (35.3-44.9) % Plt Count 211 (140-400) K/mcL BMP 12/18/17 06:32 Sodium 124 L Potassium 4.5 Chloride 89 L Carbon Dioxide 26 BUN 16 Creatinine 0.91 Glucose 118 H Calcium 9.4 - ABG Interpretation ABG results: PT/INR, D-dimer PT 26.7 Seconds (9.4-12.1) H 12/18/17 06:32 Consult Discharge Plan - Plan Instructions: Hyponatremia (DC), Hyponatremia (GEN) Referrals: Elba Tierney CNP [Primary Care Provider] - 12/24/17 1:00 pm ( )
[2017-12-18] MEDS ORDERED: *HR* Warfarin 3 MG TABLET PO ONE (18:00)
[2017-12-19] MEDS: Ipratropium/Albuterol Neb 3 ML IH SCH ×4 (03:33→15:57)
[2017-12-19 04:24] LABS: Hematocrit 34.8 % (35.3-44.9); Mean Corpuscular HGB Conc 33.6 g/dL (31.6-35.5); Mean Corpuscular Hemoglobin 29.1 pg (28.0-33.3); Mean Corpuscular Volume 86.6 fL (83.0-100.0); Mean Platelet Volume 9.8 fL (9.4-12.4); Platelet Count 196 K/mcL (140-400); Red Blood Count 4.02 M/mcL (3.82-4.97); Red Cell Distribution Width 14.2 % (11.5-14.5)
[2017-12-19 04:25] LABS: Hemoglobin 11.7 g/dL (11.5-15.4)
[2017-12-19 04:28] LABS: Prothrombin Time 33.6 Seconds (9.4-12.1)
[2017-12-19] MEDS: Aspirin Enteric Coated 81 MG Tablet PO SCH (07:49)
[2017-12-19] MEDS: Furosemide 20 MG TABLET PO SCH (07:49)
--- NOTE | 2017-12-19 08:50 | Nephrology Progress Note ---
Date of Encounter: 12/19/17 Time of Encounter: 08:25 - Assessment and Plan (1) Hyponatremia Current Visit: Yes Status: Acute Morning labs pending. Salt tablets. Started on Lasix 20 mg po to increase free water excretion. CT chest and abdomen to make sure not overlooking malignancy causing SIADH syndrome-negative findings. Renal fct normal. No documented I&O' s. Will continue to monitor. Subjective Interval history: Sitting up in chair, states feeling stronger, would like to go home. Objective - Vital Signs Vital signs: Vital Signs Temp Pulse Resp BP Pulse Ox 12/19/17 07:36 16 97 12/19/17 07:11 98.6 F 61 16 104/61 97 12/19/17 03:34 18 96 12/19/17 02:44 98.4 F 59 16 95/61 96 12/18/17 23:14 18 95 12/18/17 22:27 98.7 F 60 16 95/53 94 12/18/17 19:44 16 93 12/18/17 19:04 97.8 F 61 16 82/64 97 12/18/17 15:36 97.8 F 59 14 93/56 100 12/18/17 15:31 16 97 12/18/17 11:57 97.4 F L 64 14 97/58 94 Intake and Output 12/18/17 12/19/17 12/19/17 23:59 07:59 15:59 Intake Total 100 / 100 Balance 100 / 100 Intake: IV Fluids 100 / 100 Levaquin Premix 500mg/100mL 500 100 / 100 mg In 100 ml @ 100 mls/hr IVPB Q48H [facility] Rx#:[id number] Other: Weight 68 kg Patient Weight 12/19/17 23:59 Weight 68 kg - General Appearance General appearance: Present: appears started age, frail EENT: Present: mucous membranes moist Neck: Present: no JVD Respiratory: Present: clear Cardiology: Present: no edema, regular rate, regular rhythm Gastrointestinal: Present: normoactive bowel sounds, no tenderness Integumentary: Present: warm and dry Neurologic: Present: alert and oriented x3 - Lab 12/19/17 04:00 12/18/17 06:32 Most recent lab results Calcium 9.4 mg/dL (8.6-10.3) 12/18/17 06:32 Magnesium 1.7 mg/dL (1.6-2.6) 12/10/17 03:32 Urine Creatinine 25 mg/dL 12/08/17 11:33 Ur Total Protein 24 Hr TNP 12/08/17 11:33 Urine Sodium 98.0 mEq/L 12/08/17 11:33 Urine Total Protein < 4 mg/dL (1-14) 12/08/17 11:33 Consult Discharge Plan - Plan Instructions: Hyponatremia (DC), Hyponatremia (GEN) Referrals: Elba Tierney CNP [Primary Care Provider] - 12/24/17 1:00 pm ( )
[2017-12-19 11:04] VITALS: BP 104/66
[2017-12-19 12:16] LABS: Potassium 4.7 mEq/L (3.5-5.1)
--- NOTE | 2017-12-19 13:34 | Discharge Summary ---
- NOTES TO OUTPATIENT PROVIDER Notes to Outpatient Provider: Recommend repeat CMP within [address] pending at time of discharge Orders not resulted at time of discharge: Pending orders 12/19/17 08:[address] without Contrast [CT head/brain wo con] [CT] Routine 12/20/17 04:00 Complete Blood Count w/o Diff [HEME] AM 0400 12/21/17 04:00 Complete Blood Count w/o Diff [HEME] AM 0400 12/22/17 04:00 Complete Blood Count w/o Diff [HEME] AM 0400 Date of Encounter: 12/20/17 Time of Encounter: 13:51 - Discharge Diagnosis (1) Hyponatremia Priority: Primary Status: Acute Comments: Na dropped to 117. Home HCTZ stopped. Received IV fluids with no improvement in sodium. Remained neurologically intact. Chest, ABD and head CT without evidence of malignancy. Na slowly improved with Na tablets. Na 127 at time of discharge. Recommend repeat CMP with PCP within 3-5 days. Nephrology followed. (2) Congestive heart failure Priority: Primary Status: Chronic Comments: TTE with EF 25-30%, severe left ventricular diastolic dysfunction and severely dilated left atrium (essentially unchanged from 11/2015 echo). Home HCTZ stopped with hyponatremia. Initially diuresed with IV Lasix. Appeared euvolemic at time of discharge. Continue home BB, ARB. Add low dose Lasix. Follow-up with cardiology outpatient. Qualifiers: Heart failure type: systolic Heart failure chronicity: chronic Qualified Code(s): I50.22 - Chronic systolic (congestive) heart failure (3) Bronchitis Priority: Primary Status: Acute Comments: recently treated with Cipro at urgent care due to bronchitis but unable to tolerate due to gastric upset. Chest x-ray with atelectasis versus pneumonia when compared to previous x-ray. Respiratory PCR, urinary antigens negative. Afebrile, no elevated WBC. No cough. Clinically does not appear to be pneumonia. Received 5 doses IV Levaquin. No indication to continue ATB (4) CKD (chronic kidney disease) stage 3, GFR 30-59 ml/min Priority: Secondary Status: Chronic Comments: per hx. Renl function appears better than baseline. (5) Afib Priority: Secondary Status: Chronic Comments: per hx. Rate controlled. Cont home BB, coumadin Qualifiers: Atrial fibrillation type: persistent Qualified Code(s): I48.1 - Persistent atrial fibrillation (6) Dysphagia Priority: Primary Status: Acute Comments: evaluated by speech therapy who recommended regular diet with thin liquids; no straws. No further speech therapy or swallow therapy warranted at this time. Qualifiers: Dysphagia type: unspecified Qualified Code(s): R13.10 - Dysphagia, unspecified (7) Constipation Priority: Primary Status: Acute Comments: add miralax, colace. Resolved as of 12/17/17 Qualifiers: Constipation type: slow transit constipation Qualified Code(s): K59.01 - Slow transit constipation (8) Left ventricular thrombus Priority: Primary Status: Acute Comments: possible. [place] not well visualized on 12/14/2017 TTE. Recommend repeating TTE with [facility] with focus on [place] rule out any thrombus if patient is not already on anticoagulation. Patient is on Coumadin for chronic A. fib. INR has been therapeutic. Follow-up outpatient with Cardiology Hospital course: See assessment and plan for Hospital course Discharge discussed with: patient (Seen and examined at bedside, says she feels significantly improved and once to go home today.) - Time Spent with Patient Total time spent providing and/or coordinating discharge services: - Discharge Medications Prescriptions: Furosemide [Lasix] 20 mg PO DAILY #30 tablet Polyethylene Glycol 3350 [MiraLAX] 17 gm PO DAILY #30 powd.pack Sodium Chloride 1 gm PO BID #60 tablet Home Medications: Simvastatin [Zocor] 40 mg PO HS 12/17/15 [History] Warfarin [Coumadin] 4 mg PO DAILY 12/17/15 [History] Carvedilol 12.5 mg PO BID 08/18/17 [History] Losartan [Cozaar] 25 mg PO DAILY 08/18/17 [History] Oxybutynin Chloride [Ditropan Xl] 5 mg PO DAILY 08/18/17 [History] Furosemide [Lasix] 20 mg PO DAILY #30 tablet 12/19/17 [Rx] Polyethylene Glycol 3350 [MiraLAX] 17 gm PO DAILY #30 powd.pack 12/19/17 [Rx] Sodium Chloride 1 gm PO BID #60 tablet 12/19/17 [Rx] Allergies/Adverse Reactions: 3 Allergy/AdvReac Type Severity Reaction Status Date / Time prednisone Allergy Rash/HOT/RE Verified 12/07/17 10:18 D Date of admission: 12/11/17 10:52 Primary care physician: Elba Tireney, Consults: 12/16/17 07:49 PT [Consult to Physical Therapy] [CONS] Routine Comment: Evaluate, develop and implement POC Reason for Consult: Evaluation Does patient have active BEDREST order?: No Is patient medically & hemodynamically stable?: Yes 12/18/17 16:35 Consult to Invasive Line Access Team [CONS] Routine Reason for Consult: no IV access Line Type: EPIV PICC line indications: Limited vascular access Time Notified: 16:35 Call Completed: No Discharging clinician: Aleksandra Diehl Anticipated date of discharge: 12/19/17 - Constitutional Vitals: Temp Pulse Resp BP Pulse Ox 97.8 F 60 16 104/66 97 12/19/17 11:03 12/19/17 11:03 12/19/17 11:21 12/19/17 11:03 12/19/17 11:21 General appearance: Present: cooperative, A&O X 3, pleasant, answers questions appropriately - Head Head exam: Present: atraumatic, normocephalic - Eye Eye exam: Present: PERRL, conjuntiva pink, sclera anicteric Pupils: Present: PERRL - Neck Neck exam general surgery: Present: supple, trachea midline. Absent: lymphadenopathy - Respiratory Respiratory exam: Present: CTAB. Absent: accessory muscle use, rales, rhonchi, wheezes - Cardiovascular Cardiovascular exam: Present: RRR, +S1, +S2. Absent: diastolic murmur, gallop, rubs, systolic murmur - GI/Abdominal GI/Abdominal exam: Present: normal bowel sounds, soft, no peritoneal signs. Absent: distended, tenderness - Extremities Exam Extremities exam: Present: warm, radial pulses palpable and symmetrical. Absent : calf tenderness, cyanotic, pedal edema - Neurological Exam Neurological exam: Present: CN II-XII intact, oriented X3, no focal deficits. Absent: pronater drift, facial droop, speech deficit - Skin Skin exam: Present: dry, intact - Patient Status Disposition: Home, Self-Care Condition: Good Functional capacity at discharge: uses cane/walker Overall status at discharge: patient is back to baseline - Discharge Instructions Instructions: Furosemide (By mouth), Sodium Chloride (By mouth), Myocardial Infarction (DC), Heart Failure (DC), Heart Failure (GEN), Atrial Fibrillation ( DC), Hyponatremia (DC), Chronic Dysphagia (DC) Follow Up With: Elba Tierney CNP [Primary Care Provider] - 12/24/17 1:00 pm ( ) Arjun Miller MD [Partnered Physician] - (Please call for follow-up appt within 1-2 weeks) Additional Instructions: Follow-up with the Coumadin clinic on Thursday for an INR check - Diet and Activity Activity: increase activity as tolerated Diet: low fat, low cholesterol
== END 2017-12-19 04:05 | disposition home or self-care (01) | DRG 640 ==
LOC: EMEROO 15:14 → 3BNU 15:14
PROVIDERS: ADMIT Nurse Practitioner; ATTEND Internal Medicine